=== PATIENT | female | born 1940 | race Caucasian/White ===

== ENCOUNTER 2019-10-23 16:07 | Observation (INO) | payer MEDICARE, OTHER, SELFPAY ==
[2019-10-23 16:07] VITALS: BP 147/91; PULSE 104; RESP 18; O2SAT 94; BMI 33.5
[2019-10-23 16:16] VITALS: TEMP 37.4
--- NOTE | 2019-10-23 16:20 | ED_ITS ---
Entered by Zandra Rock, acting as scribe for Lamar Doan MD HPI - Neuro Symptoms/Deficit General: Chief Complaint: Neuro Symptoms/Deficit Stated Complaint: STROKE LIKE SYMPTOMS Time Seen by Provider: 10/23/19 16:19 Source: patient, EMS, RN notes reviewed and other (friend) Mode of arrival: EMS Limitations: no limitations History of Present Illness: HPI Narrative: 78 yo female presents to ED with complaints of weakness. She said Report from a family friend: the patient had dry heaves and slurred speech yesterday, beginning about 1600. He said she had increased difficulty walking due to increased weakness. He said her symptoms improved slightly last night before he left her home (he left at 2300). He said the patient began feeling the same way today. Patient reports that she has been having UTI symptoms, fever off and on for months. She has been to her PCP, urologist, form worker and another doctor for that. She has been having flank pain for months and begs for me to find out what is causing it because none of the other doctors have tried to figure it out. Onset (ago): day(s) (last night) Time: 16:00 Last Observed Normal: 16:00 Timing confirmed by: other (friend) Location: other (general weakness) History of same: Yes Severity: moderate Quality: weak and constant Relieving factors: none Exacerbating factors: none Context: sudden onset Associated symptoms: Reports fevers/chills, headache(s), short of breath, weakness and other (R arm pain); Deny chest pain, diaphoresis, nausea or vomiting Review of Systems Const: Denies: change in appetite, night sweats or diaphoresis Eyes: Denies: change in vision ENMT: Denies: throat pain or ear pain Card: Denies: chest pain, swelling of feet/ankles, shortness of breath on exertion or shortness of breath when lying down Resp: Denies: shortness of breath GI: Denies: abdominal pain, nausea, vomiting, diarrhea or constipation : Denies: difficulty urinating Musc: Denies: back pain Skin/Breast: Denies: rash Neuro: Reports: headache; Denies: numbness in extremities or weakness in extremities Psych: Denies: depression Endo: Denies: excessive thirst Niall/Lymph: Denies: easy bruising PFSH ED PFSH: Medical History Diabetes mellitus type 2, noninsulin dependent Fibromyalgia Hypertension Hypothyroidism Obstructive sleep apnea CPAP at home Surgical History History of back surgery History of bilateral knee replacement History of cholecystectomy History of right hip replacement History of shoulder surgery bilateral Family History Denies family history of CAD (coronary artery disease) Social History Smoking and tobacco status: never smoked Caregiver/support person: No Household members: none Physical Exam Const: COMMON NORMALS: no apparent distress, oriented x3 and alert GENERAL APPEARANCE: cooperative and well developed; not in distress and not diaphoretic ORIENTATION/CONSCIOUSNESS: Yes awake, Yes oriented to person, Yes oriented to place and Yes oriented to time HENMT: COMMON NORMALS: normocephalic, head/scalp atraumatic, external ears normal, external nose normal and oropharynx normal (MM very dry); oral mucous membranes not moist HEAD & SCALP: normocephalic and atraumatic FACE & SINUS: normal facial exam; no facial tenderness NOSE: external nose normal EXTERNAL EAR: Yes external ears normal MOUTH: oral and palatal mucosa normal TEETH & GINGIVA: no abnormal tooth and associated gingiva THROAT: posterior oropharynx normal and uvula midline Eye: COMMON NORMALS: PERRL and EOMs intact bilaterally PUPIL: Yes PERRL Neck/C-Spine: COMMON NORMALS: full ROM, supple and no JVD GENERAL: Yes normal visual inspection and Yes trachea midline CERVICAL SPINE: No cervical spine tenderness Lymph: LYMPHATIC: no lymphadenopathy noted Chest: COMMONS NORMALS: inspection of chest normal Resp: COMMON NORMALS: normal respiratory effort, no use of accessory muscles and clear to auscultation bilaterally EFFORT & INSPECTION: Yes able to speak in complete sentences and Yes symmetric chest movement AUSCULTATION: clear to auscultation bilaterally Cardio: COMMON NORMALS: no JVD, regular rate, regular rhythm, no gallops, no murmurs and peripheral pulses 2+ throughout RATE: regular rate RHYTHM: regular rhythm PERIPHERAL PULSES: pulses 2+ throughout GI: COMMON NORMALS: normal to inspection, nondistended, normoactive bowel sounds, soft to palpation and non-tender PALPATION: Yes soft : BLADDER/KIDNEY EXAM: Yes CVA tenderness Back/Pelvis: COMMON NORMALS: thoracic and lumbar spine normal to inspection and thoraco-lumbar ROM normal GENERAL BACK: Yes CVA tenderness CVA tenderness: left Extremity: COMMON NORMALS: normal to inspection, full ROM and normal capillary refill Neuro: COMMON NORMALS: oriented x3, CN's II-XII intact bilaterally, moves all extremities, no focal motor deficits and no sensory deficits noted SENSORIUM/ORIENTATION: Yes alert, Yes oriented to person, Yes oriented to place and Yes oriented to time Psych: COMMON NORMALS: mental status grossly normal, thought process normal, cooperative, affect normal, speech normal and activity/motor behavior normal SPEECH: Yes normal speech THOUGHT PROCESS: normal thought process Skin: COMMON NORMALS: no rashes or lesions noted and skin turgor normal GENERAL SKIN EXAM: no rashes or lesions noted and turgor normal Course Vital Signs: Vital signs: Vital Signs Temperature 100.4 F H 10/24/19 09:42 Pulse Rate 75 10/24/19 09:42 Respiratory Rate 17 10/24/19 09:42 Blood Pressure 128/55 10/24/19 09:42 Pulse Oximetry 95 10/24/19 09:42 MDM - Neuro Symptoms/Deficit Lab Data: Labs: Lab Results 10/23/19 10/23/19 10/23/19 Range/Units 13:50 13:50 13:50 WBC 13.4 H (4.0-10.0) 10^3/ uL RBC 5.11 (4.1-5.3) 10^6/u L Hgb 14.8 (11.5-15.3) g/dL Hct 46.1 (37.0-47.0) % MCV 90.2 (81-99) fL MCH 29.0 (28.0-34.0) pg MCHC 32.1 (30.0-36.0) g/dL RDW 13.0 (12.1-15.1) % Plt Count 193 (130-400) 10^3/c mm MPV 10.5 H (7.4-10.4) fL Neut % (Auto) 91.5 % Lymph % (Auto) 3.2 % [place] % (Auto) 4.0 % Eos % (Auto) 0.4 % Baso % (Auto) 0.3 % Neut # (Auto) 12.3 H (1.8-7.7) 10^3/u L Lymph # (Auto) 0.4 L (0.8-4.8) 10^3/u L [place] # (Auto) 0.5 (0.2-0.9) 10^3/u L Eos # (Auto) 0.1 (0.0-0.8) 10^3/u L Baso # (Auto) 0.0 (0.0-0.1) 10^3/u L Nucleated RBC % (a uto) 0 % Nucleated RBCs # 0.0 /100WBC PT 14.30 H (10.5-13.3) SECO NDS INR 1.08 (0.8-1.2) APTT 30.0 (23.9-36.7) SECO NDS Sodium 137 (136-145) mmol/L Potassium 3.9 (3.5-5.1) mmol/L Chloride 100 (98-107) mmol/L Carbon Dioxide 25 (22-29) mmol/L Anion Gap 15.9 (5-19) BUN 14 (8-23) mg/dL Creatinine 0.9 (0.5-0.9) mg/dL Glucose 221 H (65-115) mg/dL POC Glucose (70-110) mg/dL Lactic Acid (0.5-2.2) mmol/L Calcium 10.5 (8.5-10.5) mg/dL Total Bilirubin 0.6 (0.15-1.2) mg/dL AST 77 H (0-32) U/L ALT 105 H (0-33) U/L Alkaline Phosphata se 68 (35-105) IU/L Troponin I 6 Hour (0-10) ng/mL Troponin I Hi Sens Del (0-12) ng/L Troponin T Baselin e (0-10) ng/mL Troponin T 120 Min little traverse (0-10) ng/mL Delta Troponin T (0-10) ABS# Total Protein 8.1 (6.6-8.7) g/dL Albumin 4.7 (3.5-5.2) g/dL Globulin 3.4 (1.3-4.6) g/dL TSH (0.27-4.20) uIU/ mL Free T4 (0.82-1.77) ng/d L Urine Color (Yellow) Urine Appearance (CLEAR) Urine pH (5-7) Ur Specific Gravit y (1.005-1.030) Urine Protein (Negative) Urine Glucose (UA) (Normal) Urine Ketones (Negative) Urine Occult Blood (Negative) Urine Nitrate (Negative) Urine Bilirubin (NEGATIVE) Urine Urobilinogen (Negative) mg/dL Ur Leukocyte Gianna ase (Negative) Urine Opiates Scre en (Negative) ng/mL Acetaminophen (10-30) ug/mL Ur Barbiturates Sc reen (Negative) ng/mL Ur Phencyclidine S crn (Negative) ng/mL Ur Amphetamines Sc reen (Negative) ng/mL U Benzodiazepines Scrn (Negative) ng/mL Urine Cocaine Scre en (Negative) ng/mL U Marijuana (THC) Screen (Negative) ng/mL Ethyl Alcohol < 10 (0-10) mg/dL Influenza Type A A g (Negative) POC Influenza B Ag (Negative) 10/23/19 10/23/19 10/23/19 Range/Units 13:50 16:51 17:46 WBC (4.0-10.0) 10^3/ uL RBC (4.1-5.3) 10^6/u L Hgb (11.5-15.3) g/dL Hct (37.0-47.0) % MCV (81-99) fL MCH (28.0-34.0) pg MCHC (30.0-36.0) g/dL RDW (12.1-15.1) % Plt Count (130-400) 10^3/c mm MPV (7.4-10.4) fL Neut % (Auto) % Lymph % (Auto) % [place] % (Auto) % Eos % (Auto) % Baso % (Auto) % Neut # (Auto) (1.8-7.7) 10^3/u L Lymph # (Auto) (0.8-4.8) 10^3/u L [place] # (Auto) (0.2-0.9) 10^3/u L Eos # (Auto) (0.0-0.8) 10^3/u L Baso # (Auto) (0.0-0.1) 10^3/u L Nucleated RBC % (a uto) % Nucleated RBCs # /100WBC PT (10.5-13.3) SECO NDS INR (0.8-1.2) APTT (23.9-36.7) SECO NDS Sodium (136-145) mmol/L Potassium (3.5-5.1) mmol/L Chloride (98-107) mmol/L Carbon Dioxide (22-29) mmol/L Anion Gap (5-19) BUN (8-23) mg/dL Creatinine (0.5-0.9) mg/dL Glucose (65-115) mg/dL POC Glucose 177 (70-110) mg/dL Lactic Acid (0.5-2.2) mmol/L Calcium (8.5-10.5) mg/dL Total Bilirubin (0.15-1.2) mg/dL AST (0-32) U/L ALT (0-33) U/L Alkaline Phosphata se (35-105) IU/L Troponin I 6 Hour (0-10) ng/mL Troponin I Hi Sens Del (0-12) ng/L Troponin T Baselin e (0-10) ng/mL Troponin T 120 Min little traverse (0-10) ng/mL Delta Troponin T (0-10) ABS# Total Protein (6.6-8.7) g/dL Albumin (3.5-5.2) g/dL Globulin (1.3-4.6) g/dL TSH 1.63 (0.27-4.20) uIU/ mL Free T4 1.25 (0.82-1.77) ng/d L Urine Color Yellow (Yellow) Urine Appearance Clear (CLEAR) Urine pH 5 (5-7) Ur Specific Gravit y 1.020 (1.005-1.030) Urine Protein Neg (Negative) Urine Glucose (UA) Trace H (Normal) Urine Ketones 1+ H (Negative) Urine Occult Blood Neg (Negative) Urine Nitrate Negative (Negative) Urine Bilirubin Neg (NEGATIVE) Urine Urobilinogen Norm (Negative) mg/dL Ur Leukocyte Gianna ase Negative (Negative) Urine Opiates Scre en (Negative) ng/mL Acetaminophen (10-30) ug/mL Ur Barbiturates Sc reen (Negative) ng/mL Ur Phencyclidine S crn (Negative) ng/mL Ur Amphetamines Sc reen (Negative) ng/mL U Benzodiazepines Scrn (Negative) ng/mL Urine Cocaine Scre en (Negative) ng/mL U Marijuana (THC) Screen (Negative) ng/mL Ethyl Alcohol (0-10) mg/dL Influenza Type A A g (Negative) POC Influenza B Ag (Negative) 10/23/19 10/23/19 10/23/19 Range/Units 17:46 20:48 22:48 WBC (4.0-10.0) 10^3/ uL RBC (4.1-5.3) 10^6/u L Hgb (11.5-15.3) g/dL Hct (37.0-47.0) % MCV (81-99) fL MCH (28.0-34.0) pg MCHC (30.0-36.0) g/dL RDW (12.1-15.1) % Plt Count (130-400) 10^3/c mm MPV (7.4-10.4) fL Neut % (Auto) % Lymph % (Auto) % [place] % (Auto) % Eos % (Auto) % Baso % (Auto) % Neut # (Auto) (1.8-7.7) 10^3/u L Lymph # (Auto) (0.8-4.8) 10^3/u L [place] # (Auto) (0.2-0.9) 10^3/u L Eos # (Auto) (0.0-0.8) 10^3/u L Baso # (Auto) (0.0-0.1) 10^3/u L Nucleated RBC % (a uto) % Nucleated RBCs # /100WBC PT (10.5-13.3) SECO NDS INR (0.8-1.2) APTT (23.9-36.7) SECO NDS Sodium (136-145) mmol/L Potassium (3.5-5.1) mmol/L Chloride (98-107) mmol/L Carbon Dioxide (22-29) mmol/L Anion Gap (5-19) BUN (8-23) mg/dL Creatinine (0.5-0.9) mg/dL Glucose (65-115) mg/dL POC Glucose (70-110) mg/dL Lactic Acid (0.5-2.2) mmol/L Calcium (8.5-10.5) mg/dL Total Bilirubin (0.15-1.2) mg/dL AST (0-32) U/L ALT (0-33) U/L Alkaline Phosphata se (35-105) IU/L Troponin I 6 Hour (0-10) ng/mL Troponin I Hi Sens Del (0-12) ng/L Troponin T Baselin e 36 H (0-10) ng/mL Troponin T 120 Min little traverse 38.39 H (0-10) ng/mL Delta Troponin T 2.39 (0-10) ABS# Total Protein (6.6-8.7) g/dL Albumin (3.5-5.2) g/dL Globulin (1.3-4.6) g/dL TSH (0.27-4.20) uIU/ mL Free T4 (0.82-1.77) ng/d L Urine Color (Yellow) Urine Appearance (CLEAR) Urine pH (5-7) Ur Specific Gravit y (1.005-1.030) Urine Protein (Negative) Urine Glucose (UA) (Normal) Urine Ketones (Negative) Urine Occult Blood (Negative) Urine Nitrate (Negative) Urine Bilirubin (NEGATIVE) Urine Urobilinogen (Negative) mg/dL Ur Leukocyte Gianna ase (Negative) Urine Opiates Scre en Negative (Negative) ng/mL Acetaminophen (10-30) ug/mL Ur Barbiturates Sc reen Negative (Negative) ng/mL Ur Phencyclidine S crn Negative (Negative) ng/mL Ur Amphetamines Sc reen Negative (Negative) ng/mL U Benzodiazepines Scrn Negative (Negative) ng/mL Urine Cocaine Scre en Negative (Negative) ng/mL U Marijuana (THC) Screen Negative (Negative) ng/mL Ethyl Alcohol (0-10) mg/dL Influenza Type A A g (Negative) POC Influenza B Ag (Negative) 10/24/19 10/24/19 10/24/19 Range/Units 00:11 03:00 03:00 WBC (4.0-10.0) 10^3/ uL RBC (4.1-5.3) 10^6/u L Hgb (11.5-15.3) g/dL Hct (37.0-47.0) % MCV (81-99) fL MCH (28.0-34.0) pg MCHC (30.0-36.0) g/dL RDW (12.1-15.1) % Plt Count (130-400) 10^3/c mm MPV (7.4-10.4) fL Neut % (Auto) % Lymph % (Auto) % [place] % (Auto) % Eos % (Auto) % Baso % (Auto) % Neut # (Auto) (1.8-7.7) 10^3/u L Lymph # (Auto) (0.8-4.8) 10^3/u L [place] # (Auto) (0.2-0.9) 10^3/u L Eos # (Auto) (0.0-0.8) 10^3/u L Baso # (Auto) (0.0-0.1) 10^3/u L Nucleated RBC % (a uto) % Nucleated RBCs # /100WBC PT (10.5-13.3) SECO NDS INR (0.8-1.2) APTT (23.9-36.7) SECO NDS Sodium (136-145) mmol/L Potassium (3.5-5.1) mmol/L Chloride (98-107) mmol/L Carbon Dioxide (22-29) mmol/L Anion Gap (5-19) BUN (8-23) mg/dL Creatinine (0.5-0.9) mg/dL Glucose (65-115) mg/dL POC Glucose 138 (70-110) mg/dL Lactic Acid (0.5-2.2) mmol/L Calcium (8.5-10.5) mg/dL Total Bilirubin (0.15-1.2) mg/dL AST (0-32) U/L ALT (0-33) U/L Alkaline Phosphata se (35-105) IU/L Troponin I 6 Hour 40.30 H (0-10) ng/mL Troponin I Hi Sens Del 4.30 (0-12) ng/L Troponin T Baselin e (0-10) ng/mL Troponin T 120 Min little traverse (0-10) ng/mL Delta Troponin T (0-10) ABS# Total Protein (6.6-8.7) g/dL Albumin (3.5-5.2) g/dL Globulin (1.3-4.6) g/dL TSH (0.27-4.20) uIU/ mL Free T4 (0.82-1.77) ng/d L Urine Color (Yellow) Urine Appearance (CLEAR) Urine pH (5-7) Ur Specific Gravit y (1.005-1.030) Urine Protein (Negative) Urine Glucose (UA) (Normal) Urine Ketones (Negative) Urine Occult Blood (Negative) Urine Nitrate (Negative) Urine Bilirubin (NEGATIVE) Urine Urobilinogen (Negative) mg/dL Ur Leukocyte Gianna ase (Negative) Urine Opiates Scre en (Negative) ng/mL Acetaminophen < 10.0 L (10-30) ug/mL Ur Barbiturates Sc reen (Negative) ng/mL Ur Phencyclidine S crn (Negative) ng/mL Ur Amphetamines Sc reen (Negative) ng/mL U Benzodiazepines Scrn (Negative) ng/mL Urine Cocaine Scre en (Negative) ng/mL U Marijuana (THC) Screen (Negative) ng/mL Ethyl Alcohol (0-10) mg/dL Influenza Type A A g (Negative) POC Influenza B Ag (Negative) 10/24/19 10/24/19 10/24/19 Range/Units 04:02 04:02 04:04 WBC (4.0-10.0) 10^3/ uL RBC (4.1-5.3) 10^6/u L Hgb (11.5-15.3) g/dL Hct (37.0-47.0) % MCV (81-99) fL MCH (28.0-34.0) pg MCHC (30.0-36.0) g/dL RDW (12.1-15.1) % Plt Count (130-400) 10^3/c mm MPV (7.4-10.4) fL Neut % (Auto) % Lymph % (Auto) % [place] % (Auto) % Eos % (Auto) % Baso % (Auto) % Neut # (Auto) (1.8-7.7) 10^3/u L Lymph # (Auto) (0.8-4.8) 10^3/u L [place] # (Auto) (0.2-0.9) 10^3/u L Eos # (Auto) (0.0-0.8) 10^3/u L Baso # (Auto) (0.0-0.1) 10^3/u L Nucleated RBC % (a uto) % Nucleated RBCs # /100WBC PT (10.5-13.3) SECO NDS INR (0.8-1.2) APTT (23.9-36.7) SECO NDS Sodium (136-145) mmol/L Potassium (3.5-5.1) mmol/L Chloride (98-107) mmol/L Carbon Dioxide (22-29) mmol/L Anion Gap (5-19) BUN (8-23) mg/dL Creatinine (0.5-0.9) mg/dL Glucose (65-115) mg/dL POC Glucose 161 (70-110) mg/dL Lactic Acid (0.5-2.2) mmol/L Calcium (8.5-10.5) mg/dL Total Bilirubin (0.15-1.2) mg/dL AST (0-32) U/L ALT (0-33) U/L Alkaline Phosphata se (35-105) IU/L Troponin I 6 Hour (0-10) ng/mL Troponin I Hi Sens Del (0-12) ng/L Troponin T Baselin e (0-10) ng/mL Troponin T 120 Min little traverse (0-10) ng/mL Delta Troponin T (0-10) ABS# Total Protein (6.6-8.7) g/dL Albumin (3.5-5.2) g/dL Globulin (1.3-4.6) g/dL TSH (0.27-4.20) uIU/ mL Free T4 (0.82-1.77) ng/d L Urine Color (Yellow) Urine Appearance (CLEAR) Urine pH (5-7) Ur Specific Gravit y (1.005-1.030) Urine Protein (Negative) Urine Glucose (UA) (Normal) Urine Ketones (Negative) Urine Occult Blood (Negative) Urine Nitrate (Negative) Urine Bilirubin (NEGATIVE) Urine Urobilinogen (Negative) mg/dL Ur Leukocyte Gianna ase (Negative) Urine Opiates Scre en Negative (Negative) ng/mL Acetaminophen (10-30) ug/mL Ur Barbiturates Sc reen Negative (Negative) ng/mL Ur Phencyclidine S crn Negative (Negative) ng/mL Ur Amphetamines Sc reen Negative (Negative) ng/mL U Benzodiazepines Scrn Negative (Negative) ng/mL Urine Cocaine Scre en Negative (Negative) ng/mL U Marijuana (THC) Screen Negative (Negative) ng/mL Ethyl Alcohol (0-10) mg/dL Influenza Type A A g Negative (Negative) POC Influenza B Ag Negative (Negative) 10/24/19 10/24/19 10/24/19 Range/Units 05:26 05:26 08:00 WBC (4.0-10.0) 10^3/ uL RBC (4.1-5.3) 10^6/u L Hgb (11.5-15.3) g/dL Hct (37.0-47.0) % MCV (81-99) fL MCH (28.0-34.0) pg MCHC (30.0-36.0) g/dL RDW (12.1-15.1) % Plt Count (130-400) 10^3/c mm MPV (7.4-10.4) fL Neut % (Auto) % Lymph % (Auto) % [place] % (Auto) % Eos % (Auto) % Baso % (Auto) % Neut # (Auto) (1.8-7.7) 10^3/u L Lymph # (Auto) (0.8-4.8) 10^3/u L [place] # (Auto) (0.2-0.9) 10^3/u L Eos # (Auto) (0.0-0.8) 10^3/u L Baso # (Auto) (0.0-0.1) 10^3/u L Nucleated RBC % (a uto) % Nucleated RBCs # /100WBC PT (10.5-13.3) SECO NDS INR (0.8-1.2) APTT (23.9-36.7) SECO NDS Sodium 136 (136-145) mmol/L Potassium 4.2 (3.5-5.1) mmol/L Chloride 103 (98-107) mmol/L Carbon Dioxide 24 (22-29) mmol/L Anion Gap 13.2 (5-19) BUN 14 (8-23) mg/dL Creatinine 0.8 (0.5-0.9) mg/dL Glucose 170 H (65-115) mg/dL POC Glucose 120 (70-110) mg/dL Lactic Acid 0.9 (0.5-2.2) mmol/L Calcium 9.3 (8.5-10.5) mg/dL Total Bilirubin 0.6 (0.15-1.2) mg/dL AST 37 H (0-32) U/L ALT 61 H (0-33) U/L Alkaline Phosphata se 51 (35-105) IU/L Troponin I 6 Hour (0-10) ng/mL Troponin I Hi Sens Del (0-12) ng/L Troponin T Baselin e (0-10) ng/mL Troponin T 120 Min little traverse (0-10) ng/mL Delta Troponin T (0-10) ABS# Total Protein 6.5 L (6.6-8.7) g/dL Albumin 3.3 L (3.5-5.2) g/dL Globulin 3.2 (1.3-4.6) g/dL TSH (0.27-4.20) uIU/ mL Free T4 (0.82-1.77) ng/d L Urine Color (Yellow) Urine Appearance (CLEAR) Urine pH (5-7) Ur Specific Gravit y (1.005-1.030) Urine Protein (Negative) Urine Glucose (UA) (Normal) Urine Ketones (Negative) Urine Occult Blood (Negative) Urine Nitrate (Negative) Urine Bilirubin (NEGATIVE) Urine Urobilinogen (Negative) mg/dL Ur Leukocyte Gianna ase (Negative) Urine Opiates Scre en (Negative) ng/mL Acetaminophen (10-30) ug/mL Ur Barbiturates Sc reen (Negative) ng/mL Ur Phencyclidine S crn (Negative) ng/mL Ur Amphetamines Sc reen (Negative) ng/mL U Benzodiazepines Scrn (Negative) ng/mL Urine Cocaine Scre en (Negative) ng/mL U Marijuana (THC) Screen (Negative) ng/mL Ethyl Alcohol (0-10) mg/dL Influenza Type A A g (Negative) POC Influenza B Ag (Negative) Imaging Data^: CT Head: Radiologist's impression: [facility] [address] [place] [address] CT Scan Report Signed Patient: Meghna Crespo #: [id number] : 1Acct#:[id number] Age/Sex: 78 / FADM Date: 10/23/19 Loc: ERRoom/Bed: Attending Dr: Ordering Provider/Ordering MD: Lamar Doan MD Date of Service: 10/23/19 Procedure(s): CT head wo con* [id number] Accession Number(s): [id number] Report Number: [id number] WS: [id number] CT HEAD NONCONTRAST HISTORY: Symptoms of Acute Stroke TECHNIQUE: Contiguous axial imaging performed through the brain in 2.5 mm imaging. Bone and soft tissue windows. Sagittal and coronal reformats reviewed. All CT scans at [facility] use at least one of these dose optimization techniques: automated exposure control; mA and/or kV adjustment per patient size (includes targeted exams where dose is matched to clinical indication); or iterative reconstruction. DLP: 797.60 mGy-cm. COMPARISON: 10/18/2017 No acute intracranial hemorrhage, midline shift or mass effect. No atrophy or prior infarcts or herniation. There is artifact through the brain from motion. There is extensive chronic white matter disease surrounding the ventricles with mild progression since the prior study. Small lacunar infarcts in the external capsules. Ventricles: Normal size with no hydrocephalus. Paranasal sinuses: As visualized are clear. Mastoid air cells: Well pneumatized. Calvarium and scalp: Skull is intact with no soft tissue edema or swelling. Notified Lamar Doan MD at 10/23/2019 4:[address]/CT head wo con* [id number] IMPRESSION: 1. No acute intracranial hemorrhage or edema. 2. Mild atrophy with moderate chronic microvascular ischemic changes. Mild progression since 10/18/2017 Dictated By:Darling Moyer DO Signed By:Darling Moyer DOSigned Date/Time:10/23/19 1635 DD/ CT Abd/Pel: Radiologist's impression: [facility] [address] [place] [address] CT Scan Report Signed Patient: Meghna Crespo #: [id number] : 1Acct#:[id number] Age/Sex: 78 / FADM Date: 10/23/19 Loc: ERRoom/Bed: Attending Dr: Ordering Provider/Ordering MD: Lamar Doan MD Date of Service: 10/23/19 Procedure(s): CT abdomen pelvis w con* [id number] Accession Number(s): [id number] Report Number: [id number] PROCEDURE INFORMATION: Exam: CT Abdomen And Pelvis With Contrast Exam date and time: 10/23/2019 5:48 PM Age: 78 years old Clinical indication: Constipation; Abdominal pain; Prior surgery; Surgery type: L-spine, RT. Hip, hysto, gb; Additional info: Abdominal pain, fever TECHNIQUE: Imaging protocol: Computed tomography of the abdomen and pelvis with intravenous contrast. Total DLP: 2102.14 mGy-cm Radiation optimization: All CT scans at this facility use at least one of these dose optimization techniques: automated exposure control; mA and/or kV adjustment per patient size (includes targeted exams where dose is matched to clinical indication); or iterative reconstruction. Contrast material: OMNI 300; Contrast volume: 95 ml; Contrast route: IV; COMPARISON: CT Chest/Abdomen/Pelvis w IV* 04/02/2019 1:04 AM FINDINGS: Lungs: Mild atelectasis. Liver: Normal. No mass. Gallbladder and bile ducts: Cholecystectomy. Stable prominence of the intrahepatic and extrahepatic bile ducts. Pancreas: Normal. No ductal dilation. Spleen: Normal. No splenomegaly. Adrenals: Normal. No mass. Kidneys and ureters: Normal. No hydronephrosis. Stomach and bowel: Moderate stool in the rectum. Diverticulosis of the sigmoid colon. The stomach and small bowel are unremarkable. Appendix: No evidence of appendicitis. Intraperitoneal space: Unremarkable. No free air. No significant fluid collection. Vasculature: Unremarkable. No abdominal aortic aneurysm. Lymph nodes: Unremarkable. No enlarged lymph nodes. Bladder: Maguire catheter in a decompressed urinary bladder. Reproductive: The uterus is absent. Normal small ovaries. Bones/joints: L2-4 posterior mechanical fusion. Degenerative spine. No compression fracture. Right hip arthroplasty. Soft tissues: Unremarkable. CT/CT abdomen pelvis w con* [id number] IMPRESSION: 1. No acute abnormality identified in the abdomen or pelvis. 2. Moderate stool in the rectum likely indicates rectal impaction. 3. Diverticulosis of the distal colon. 4. Stable prominence of the bile ducts, most likely reservoir effect. Radiation Dose CTDIVOL = (mGy): DLP = 2102.14 (mGy-cm) Dictated By:Frederick Moreira Signed By:Frederick MoreiraSigned Date/Time:10/23/19 183 DD/ EKG Data^: EKG 1: EKG interpretation date: 10/23/19 EKG interpretation time: 16:33 Interpretation: NSR, 99 rate, LAE, non specific ST and T wave abnormalities EKG 2: EKG interpretation date: 10/23/19 EKG interpretation time: 22:19 Interpretation: rate 73, normal ST segments now - some change from previous EKG today, normal axis Discharge Plan Discharge Patient Disposition: Admitted As Inpatient Admit Provider: Domonique Gerardo Discharge Date/Time: 10/24/19 09:55 Coding Level of Care Code ED Rap Artist for Chg Fwd Exam Problem Focused The documentation recorded by the Pranav gutierres Valerie R, accurately reflects the service I personally performed and the decisions made by Olimpia brooks Kathryn L, MD
--- NOTE | 2019-10-23 16:24 | CT_ITS ---
WS: [id number] CT HEAD NONCONTRAST HISTORY: Symptoms of Acute Stroke TECHNIQUE: Contiguous axial imaging performed through the brain in 2.5 mm imaging. Bone and soft tiss ue windows. Sagittal and coronal reformats reviewed. All CT scans at [facility] use at ast one of these dose optimization techniques: automated exposure control; mA and/or kV adjustment pe r patient size (includes targeted exams where dose is matched to clinical indication); or iterative r econstruction. DLP: 797.60 mGy-cm. COMPARISON: 10/18/2017 No acute intracranial hemorrhage, midline shift or mass effect. No atrophy or prior infarcts or herniation. There is artifact through the brain from motion. There is extensive chronic white matter disease surrounding the ventricles with mild progression since the pr ior study. Small lacunar infarcts in the external capsules. Ventricles: Normal size with no hydrocephalus. Paranasal sinuses: As visualized are clear. Mastoid air cells: Well pneumatized. Calvarium and scalp: Skull is intact with no soft tissue edema or swelling. Notified Lamar Doan MD at 10/23/2019 4:[address]/CT head wo con* [id number] IMPRESSION: 1. No acute intracranial hemorrhage or edema. 2. Mild atrophy with moderate chronic microvascular ischemic changes. Mild pro gression since 10/18/2017
--- NOTE | 2019-10-23 16:24 | ECG_ITS ---
Measurements Intervals [place] Rate: 99 P: 67 W[place]: 196 QRS: 60 QRSD: 86 T: 58 QT: 316 QTc: 406 SINUS RHYTHM POSSIBLE LEFT ATRIAL ENLARGEMENT [-0.1mV P WAVE IN V1/V2] NONSPECIFIC ST & T-WAVE ABNORMALITY Compared to ECG 07/05/2019 03:12:18 Sinus tachycardia no longer present T-wave abnormality still present Electronically Signed On 10-23-2019 20:41:54 HEALTH AID by Davian Bowles M.D. [id number] f
[2019-10-23 16:41] LABS: Basophils % 0.3 %; Eosinophils # 0.1 10^3/uL (0.0-0.8); Eosinophils % 0.4 %; Hematocrit 46.1 % (37.0-47.0); Hemoglobin 14.8 g/dL (11.5-15.3); Lymphocytes # 0.4 10^3/uL (0.8-4.8); Lymphocytes % 3.2 %; Mean Corpuscular HGB Conc 32.1 g/dL (30.0-36.0); Mean Corpuscular Volume 90.2 fL (81-99); Mean Platelet Volume 10.5 fL (7.4-10.4); Monocytes # 0.5 10^3/uL (0.2-0.9); Neutrophils # 12.3 10^3/uL (1.8-7.7); Neutrophils % 91.5 %; Nucleated Red Blood Cells % 0 %; Platelet Count 193 10^3/cmm (130-400); Red Blood Count 5.11 10^6/uL (4.1-5.3); White Blood Count 13.4 10^3/uL (4.0-10.0)
[2019-10-23 16:46] LABS: INR 1.08 (0.8-1.2)
[2019-10-23 16:52] LABS: Alanine Aminotransferase 105 U/L (0-33); Albumin Level 4.7 g/dL (3.5-5.2); Alkaline Phosphatase 68 IU/L (35-105); Anion Gap 15.9 (5-19); Aspartate Amino Transferase 77 U/L (0-32); Blood Urea Nitrogen 14 mg/dL (8-23); Calcium 10.5 mg/dL (8.5-10.5); Carbon Dioxide 25 mmol/L (22-29); Chloride 100 mmol/L (98-107); Globulin 3.4 g/dL (1.3-4.6); Glucose 221 mg/dL (65-115); Potassium 3.9 mmol/L (3.5-5.1); Sodium 137 mmol/L (136-145); Total Bilirubin 0.6 mg/dL (0.15-1.2); Total Protein 8.1 g/dL (6.6-8.7)
[2019-10-23 16:55] LABS: Glucose Point of Care 177 mg/dL (70-110)
--- NOTE | 2019-10-23 17:36 | CTR_ITS ---
PROCEDURE INFORMATION: Exam: CT Abdomen And Pelvis With Contrast Exam date and time: 10/23/2019 5:48 PM Age: 78 years old Clinical indication: Constipation; Abdominal pain; Prior surgery; Surgery type: L-spine, RT. Hip, hysto, gb; Additional info: Abdominal pain, fever TECHNIQUE: Imaging protocol: Computed tomography of the abdomen and pelvis with intravenous contrast. Total DLP: 2102.14 mGy-cm Radiation optimization: All CT scans at this facility use at least one of these dose optimization techniques: automated exposure control; mA and/or kV adjustment per patient size (includes targeted exams where dose is matched to clinical indication); or iterative reconstruction. Contrast material: OMNI 300; Contrast volume: 95 ml; Contrast route: IV; COMPARISON: CT Chest/Abdomen/Pelvis w IV* 04/02/2019 1:04 AM FINDINGS: Lungs: Mild atelectasis. Liver: Normal. No mass. Gallbladder and bile ducts: Cholecystectomy. Stable prominence of the intrahepatic and extrahepatic bile ducts. Pancreas: Normal. No ductal dilation. Spleen: Normal. No splenomegaly. Adrenals: Normal. No mass. Kidneys and ureters: Normal. No hydronephrosis. Stomach and bowel: Moderate stool in the rectum. Diverticulosis of the sigmoid colon. The stomach and small bowel are unremarkable. Appendix: No evidence of appendicitis. Intraperitoneal space: Unremarkable. No free air. No significant fluid collection. Vasculature: Unremarkable. No abdominal aortic aneurysm. Lymph nodes: Unremarkable. No enlarged lymph nodes. Bladder: Maguire catheter in a decompressed urinary bladder. Reproductive: The uterus is absent. Normal small ovaries. Bones/joints: L2-4 posterior mechanical fusion. Degenerative spine. No compression fracture. Right hip arthroplasty. Soft tissues: Unremarkable. CT/CT abdomen pelvis w con* [id number] IMPRESSION: 1. No acute abnormality identified in the abdomen or pelvis. 2. Moderate stool in the rectum likely indicates rectal impaction. 3. Diverticulosis of the distal colon. 4. Stable prominence of the bile ducts, most likely reservoir effect. Radiation Dose CTDIVOL = (mGy): DLP = 2102.14 (mGy-cm)
[2019-10-23] MEDS: sodium chloride 0.9% 500 ML 999 ML IV (17:47)
[2019-10-23 17:54] LABS: Add Urine Microscopic? NO
--- NOTE | 2019-10-23 18:00 | PC.NURSE ---
pt to ct by stretcher with tech
[2019-10-23] MEDS: iohexol 300 mg/mL 100 mL Btl 95 ML IV (18:04)
[2019-10-23 18:05] LABS: Bilirubin Urine Neg (NEGATIVE); Blood Urine Neg (Negative); Glucose Urine UA Trace (Normal); Ketones Urine 1+ (Negative); Leukocyte Esterase Urine Negative (Negative); Nitrate Urine Negative (Negative); Protein Urine Neg (Negative); Urine Appearance Clear (CLEAR); Urine Color Yellow (Yellow); Urobilinogen Urine Norm (Negative); pH Urine 5 (5-7)
[2019-10-23 18:24] LABS: Amphetamines Screen Urine Negative (Negative); Barbiturates Screen Urine Negative (Negative); Benzodiazepines Screen Urine Negative (Negative); Cocaine Screen Urine Negative (Negative); Opiate Screen Urine Negative (Negative); PCP Screen Urine Negative (Negative); THC Screen Urine Negative (Negative)
[2019-10-23] MEDS: gabapentin 300 mg Capsule PO (18:52)
[2019-10-23] MEDS: oxyCODONE-APAP 5-325 mg Tablet 1 TAB PO (18:52)
[2019-10-23 18:54] VITALS: BP 141/67; PULSE 98; O2SAT 93
--- NOTE | 2019-10-23 19:26 | PC.NURSE ---
Introduced self to patient and initiated vital signs. Pt is A&O x 4 and agreeable. Pt states that the reason for the ER visit today is due to left side flank pain of 10/10. Pt following commands and states that she is feeling the same bilaterally. Pt moves both hands and feet and feels the same on both sides. Reassured patient of needs and will continue to monitor. Awaiting provider at bedside.
[2019-10-23 19:27] VITALS: BP 146/77; PULSE 90; RESP 18; O2SAT 93
--- NOTE | 2019-10-23 19:31 | PC.NURSE ---
Spoke to Graham at [facility]. Provided him with our fax number to send over forms for mother to sign. Pt assigned to room 231
--- NOTE | 2019-10-23 20:45 | ECG_ITS ---
Measurements Intervals [place] Rate: 81 P: 70 [place]: 189 QRS: 59 QRSD: 87 T: 66 QT: 331 QTc: 386 SINUS RHYTHM Compared to ECG 10/23/2019 16:19:55 T-wave abnormality no longer present Electronically Signed On 10-24-2019 20:45:40 FIELD CROP I FARMWORKER by Davian Bowles M.D. [id number]
[2019-10-23 21:00] VITALS: BP 138/66; PULSE 67; RESP 16; O2SAT 94
[2019-10-23 21:11] LABS: Troponin(5th) Baseline 36 ng/mL (0-10)
[2019-10-23 22:43] VITALS: BP 135/68; PULSE 68; RESP 16; O2SAT 96
--- NOTE | 2019-10-23 22:45 | ECG_ITS ---
Measurements Intervals [place] Rate: 73 P: 76 [place]: 178 QRS: 61 QRSD: 86 T: 73 QT: 340 QTc: 375 SINUS RHYTHM Compared to ECG 10/23/2019 16:19:55 T-wave abnormality no longer present Electronically Signed On 10-24-2019 20:50:00 RAIL CAR OPERATOR by Davian Bowles M.D. [id number]
[2019-10-23 23:12] LABS: Troponin 5 2HR 38.39 ng/mL (0-10); Troponin 5 2HR Delta 2.39 ABS# (0-10)
[2019-10-23 23:18] LABS: Thyroid Stimulating Hormone 1.63 uIU/mL (0.27-4.20)
--- NOTE | 2019-10-23 23:45 | PC.NURSE ---
Son's Telephone Number - [phone]
[2019-10-24] VITALS (10 sets, daily range): BP systolic 115–152; BP diastolic 55–103; PULSE 65–95; RESP 16–23; TEMP 36.8–38; O2SAT 91–98
[2019-10-24 00:14] LABS: Glucose Point of Care 138 mg/dL (70-110)
--- NOTE | 2019-10-24 00:30 | PC.NURSE ---
Pt provided with sandwich and apple sauce.
[2019-10-24 01:43] LABS: Free T4 Free Thyroxine 1.25 ng/dL (0.82-1.77)
[2019-10-24] MEDS: HYDROcodone-acetaminophen 7.5-325 mg Tablet 1 TAB PO (02:09)
--- NOTE | 2019-10-24 02:14 | PC.NURSE ---
moved patient up in bed with help of tech for optimal patient comfort. blankets readjusted.
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
--- NOTE | 2019-10-24 02:45 | ECG_ITS ---
Measurements Intervals [place] Rate: 93 P: 65 [place]: 187 QRS: 61 QRSD: 88 T: 62 QT: 308 QTc: [address] & T-WAVE ABNORMALITY Compared to ECG 10/23/2019 16:19:55 No significant changes Electronically Signed On 10-24-2019 20:50:49 ELECTRIC STOVE INSTALLER by Davian Bowles M.D. [id number]
[2019-10-24 03:54] LABS: Add On to Lab Order(s) Added
--- NOTE | 2019-10-24 03:56 | XR_ITS ---
WS: [id number] LEFT RIBS, MULTIPLE VIEWS WITH PA CHEST HISTORY: severe pain left posterior lateral ribs with palpation COMPARISON: 07/05/2019 Lungs and mediastinum: Hyperinflated lungs with chronic emphysema. No pneumonia. Normal vasculature. Ribs: Severe osteopenia. No definite fractures are identified. There is slight deformity of the anter ior 6 and seventh ribs. Indeterminate for acute fractures. Severe bilateral degenerative changes at the glenohumeral joints. XR/XR ribs LT mn 3V w CXR1V [id number] IMPRESSION: 1. No definite rib fractures. There is very slight deformity of the anterior L EFT sixth and seventh ribs. May be incomplete fractures. 2. Severe emphysema.
[2019-10-24 04:06] LABS: Acetaminophen < 10.0 ug/mL (10-30)
[2019-10-24 04:09] LABS: Glucose Point of Care 161 mg/dL (70-110)
--- NOTE | 2019-10-24 04:10 | PC.NURSE ---
Blood glucose is 161, nurse has been informed
[2019-10-24 04:12] LABS: Alcohol Level < 10 mg/dL (0-10)
[2019-10-24] MEDS: sodium chlor 0.9% + KCl 20 mEq 20 MEQ/1,000 ML BAG 100 MEQ IV ×2 (04:22→14:43)
[2019-10-24 04:42] LABS: Amphetamines Screen Urine Negative (Negative); Barbiturates Screen Urine Negative (Negative); Benzodiazepines Screen Urine Negative (Negative); Cocaine Screen Urine Negative (Negative); Opiate Screen Urine Negative (Negative); PCP Screen Urine Negative (Negative); THC Screen Urine Negative (Negative)
--- NOTE | 2019-10-24 04:47 | PC.NURSE ---
Patient placed in disposable underwear.
[2019-10-24 04:51] LABS: Influenza A by IFA Negative (Negative)
[2019-10-24 04:52] LABS: Influenza B by IFA Negative (Negative)
[2019-10-24] MEDS: enoxaparin 40 mg/0.4 mL Syringe SUBCUT (05:25)
[2019-10-24 05:52] LABS: Alanine Aminotransferase 61 U/L (0-33); Albumin Level 3.3 g/dL (3.5-5.2); Alkaline Phosphatase 51 IU/L (35-105); Anion Gap 13.2 (5-19); Aspartate Amino Transferase 37 U/L (0-32); Blood Urea Nitrogen 14 mg/dL (8-23); Calcium 9.3 mg/dL (8.5-10.5); Carbon Dioxide 24 mmol/L (22-29); Chloride 103 mmol/L (98-107); Globulin 3.2 g/dL (1.3-4.6); Glucose 170 mg/dL (65-115); Potassium 4.2 mmol/L (3.5-5.1); Sodium 136 mmol/L (136-145); Total Bilirubin 0.6 mg/dL (0.15-1.2); Total Protein 6.5 g/dL (6.6-8.7)
[2019-10-24 05:53] LABS: Lactic Sepsis W/Reflex 0.9 mmol/L (0.5-2.2)
[2019-10-24 08:03] LABS: Glucose Point of Care 120 mg/dL (70-110)
[2019-10-24] MEDS: gabapentin 300 mg Capsule PO ×2 (08:22→20:14)
[2019-10-24] MEDS: amlodipine 10 mg Tablet PO (08:23)
[2019-10-24] MEDS: levothyroxine 25 mcg Tablet PO (08:24)
[2019-10-24] MEDS: nitrofurantoin SR (BID) 100 mg Capsule PO ×2 (08:29→17:55)
[2019-10-24] MEDS: docusate sodium 100 mg Capsule PO ×2 (08:29→17:55)
[2019-10-24] MEDS: acetaminophen 325 mg Tablet 650 MG PO (09:51)
[2019-10-24 11:09] LABS: Glucose Point of Care 159 mg/dL (70-110)
[2019-10-24] MEDS: oxyCODONE-APAP 10-325 mg Tablet 1 TAB PO ×2 (12:32→20:14)
[2019-10-24] MEDS: pneumococcal (23 valent) SDV 0.5 mL IM (14:43)
--- NOTE | 2019-10-24 15:57 | PC.CHAP ---
Pastoral Care Encounter/Spiritual Assessment Type of Contact [] Declined wireless architect visit [] Patient/Family/Request visit [] Outpatient visit [] Follow-up visit [] Physician referral [] Code/Alert [x] Routine visit [] Staff referral [] Actively dying [] Patient sleeping [] Family support [] [] Out of room [] Palliative care [] [x] Receiving care in room [] Pre-surgical visit [] Trauma [] Long length of stay [] ICU visit [] Other: Relational/Emotional Strength [x] Patient feels connected with others/family/visitors/staff [x] Distress [] Loneliness/isolation [] Abandonment Spirituality of Patient [x] Person of Bren [] Attends Oriental Orthodox of their Bren [x] Believes in Prayer [] Reads Bible or Adventist materials [] There are Spiritual issues to be addressed Banking Analyst Interventions [x] Prayer [x] Active listening [x] Non-anxious presence [x] Spiritual/emotional support [] Crisis/trauma care [x] Spiritual counseling [] Bereavement support [] Provided bereavement packet [] Provided Bible/devotional materials [] Provided toy/stuffed animal, coloring book to patient or family member [] Provided Communion [] Anointing/[place] [] Salvation [x] Completed spiritual assessment [] Other: Impact on Illness or Injury [] Angry [x] Fearful [x] Anxious [] Often cries [] Exhaustion [x] Unable to work [x] Unable to attend mandaen [] Unable to walk/stand [] Unable to read [x] Unable to drive [] Unable to eat/drink [] Unable to sleep [] Unable to be with family [] Patient intubated [] Other: Summary patient was able to connect with Banking Analyst well. Time spent with patient 2min
[2019-10-24 17:30] LABS: Glucose Point of Care 114 mg/dL (70-110)
--- NOTE | 2019-10-24 17:38 | PM.PN ---
Subjective Subjective: Interval history: Continues to complain of significant pain on the left side. Tenderness to palpation present over the left side scapula and upper spine. LFTs are improving. T-max of 100.4. Influenza negative. UA negative. X-ray ribs without any definite acute fracture. Severe emphysema noted. Severe bilateral degenerative changes at the glenohumeral joints. Medications: Reviewed: Yes Vitals/I&O/Wt Last Vital Signs Temp 98.2 F 10/24/19 15:50 Pulse 76 10/24/19 15:50 Resp 18 10/24/19 15:50 BP 125/74 10/24/19 15:50 Pulse Ox 92 10/24/19 15:50 10/24/19 10/24/19 10/24/19 06:59 14:59 22:59 Intake Total 1100 / 1100 240 / 1340 Balance 1100 / 1100 240 / 1340 Weight last 48 hrs Weight 88.451 kg Physical Exam Narrative: EXAM NARRATIVE: GEN: Awake, alert and oriented, no acute distress CVS: S1S2 N RS: CTA B/L Abd: Soft, nt/nd , bs+ FLIGHT RESERVATIONS MANAGER: no focal neuro deficits Back: Tenderness to palpation over left scapula and upper thoracic spine. Urinary Catheter Management^: Maguire: Cath Placed During This Visit: yes Urethral Indwelling: Yes Reason for Continuing Indwelling Catheter: Decision to DC Catheter Urinary Catheter Date of Insertion: 10/23/19 Urinary Catheter Time of Insertion: 17:50 Data : 10/23/19 13:50 10/24/19 05:26 A&P Assessment and plan (1) Obstructive sleep apnea: Status: Chronic Code(s): G47.33 - Obstructive sleep apnea (adult) (pediatric) (2) Hypothyroidism: Normal TSH in the emergency room, on levothyroxine Status: Acute Qualifiers: Hypothyroidism type: acquired Qualified Code(s): E03.9 - Hypothyroidism, unspecified Code(s): E03.9 - Hypothyroidism, unspecified (3) Elevated transaminase level: Currently unclear significance Status: Acute Code(s): R74.0 - Nonspecific elevation of levels of transaminase and lactic acid dehydrogenase [LDH] (4) UTI (urinary tract infection): Present on admission and already on antibiotics Status: Acute Qualifiers: Urinary tract infection type: site unspecified Hematuria presence: without hematuria Qualified Code(s): N39.0 - Urinary tract infection, site not specified Code(s): N39.0 - Urinary tract infection, site not specified (5) Unable to walk: Status: Acute Code(s): R26.2 - Difficulty in walking, not elsewhere classified (6) Hypertension: Status: Chronic Qualifiers: Hypertension type: essential hypertension Qualified Code(s): I10 - Essential (primary) hypertension Code(s): I10 - Essential (primary) hypertension (7) Fibromyalgia: Status: Chronic Code(s): M79.7 - Fibromyalgia (8) Lives alone without help available: Status: Chronic Code(s): Z60.2 - Problems related to living alone (9) Diabetes mellitus type 2, noninsulin dependent: Does not appear to be on any medications for this currently though she does admit to having diabetes. I did see a prescription for insulin syringes so maybe she is on insulin. Sugars are elevated. Status: Chronic Code(s): E11.9 - Type 2 diabetes mellitus without complications Additional A&P Information Patient's chief complaint at this time appears to be pain in her left side which is also radiating down her arm. She reports severe pain in the left shoulder joint as well consistent with known degenerative changes. She wonders if this is all related to her fibromyalgia. She tells me she has never tried any steroids before for the fibromyalgia. She reports that she has a history of hardware placement in the back and I wonder if loosening of hardware? An underlying hardware infection may be complicating in this case. I am concerned about possible infection based on her low-grade fever and white count. Will obtain blood cultures and ESR CRP dedicated imaging for the spine to rule out this possibility. In the interim we will increase her dose of gabapentin to match her home dose of 900 mg daily. Urine culture remains pending at this time. UA is unremarkable likely secondary to antibiotics that she received recently. 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 She states she has never seen rheumatology in the past. Further orders based on results of CT and lab work as noted above. DVT prophylaxis Lovenox Full code Attestations Medical Necessity Statement*: Admitted for management and work-up of pain because of which patient refused to get out of bed at this time. Coding Level of Care Code Acute Pediatric Social Worker for [facility] Diagnoses Obstructive sleep apnea G47.33 Hypothyroidism E03.9 Hypothyroidism type: acquired Elevated transaminase level R74.0 UTI (urinary tract infection) N39.0 Urinary tract infection type: site unspecified Hematuria presence: without hematuria Unable to walk R26.2 Hypertension I10 Hypertension type: essential hypertension Fibromyalgia M79.7 Lives alone without help available Z60.2 Diabetes mellitus type 2, noninsulin dependent E11.9
--- NOTE | 2019-10-24 17:46 | CTR_ITS ---
PROCEDURE INFORMATION: Exam: CT Lumbar Spine Without Contrast Exam date and time: 10/24/2019 5:49 PM Age: 78 years old Clinical indication: Low back pain; Prior surgery; Surgery date: 6+ months; Additional info: Back pain, fever TECHNIQUE: Imaging protocol: Computed tomography images of the lumbar spine without contrast. Total DLP: 2635.9 mGy-cm Radiation optimization: All CT scans at this facility use at least one of these dose optimization techniques: automated exposure control; mA and/or kV adjustment per patient size (includes targeted exams where dose is matched to clinical indication); or iterative reconstruction. COMPARISON: CT Lumbar Spine w contra [id number] 11/26/2018 10:47 AM FINDINGS: Vertebrae: The vertebral body stature is normal. 5 mm retrograde subluxation of L1 on L2. Severe disc space narrowing from T11-12 through L5-S1 with mild degenerative endplate changes. Multilevel degenerative facets. Bilateral pedicle screws with posterior stabilization rods spanning L2-L4. The hardware appears intact. Discs/Spinal canal/Neural foramina: T11-12: Mild disc bulge. Degenerative facets. Severe bilateral foraminal stenosis. Moderate central canal stenosis. T12-L1: Mild disc bulge. Degenerative facets. Severe left and moderate right foraminal stenosis. Mild central canal stenosis. L1-L2: Mild disc bulge. Degenerative facets. Severe bilateral bony foraminal stenosis. Severe central canal stenosis. L2-L3: Discectomy with fusion. No foraminal stenosis. Mild central canal stenosis. L3-L4: Discectomy with fusion. Mild left bony foraminal stenosis. No right foraminal stenosis. Mild central canal stenosis. L4-L5: Disc bulge. Degenerative facets. Moderate bilateral foraminal stenosis. Moderate-severe central canal stenosis. L5-S1: Disc bulge. Degenerative facets. Moderate left and mild right foraminal stenosis. No central canal stenosis. Lungs: Basilar atelectasis. Stomach and bowel: Diverticulosis of the distal colon. Soft tissues: Unremarkable. CT/CT lumbar spine wo con* [id number] IMPRESSION: 1. No acute abnormality identified. 2. Intact L2-4 fusion. 3. Multilevel spondylitic, discogenic, and facet degenerative changes. This contributes to multilevel central canal and foraminal stenosis as described. Radiation Dose CTDIVOL = (mGy): DLP = 2635.9 (mGy-cm)
--- NOTE | 2019-10-24 17:46 | CTR_ITS ---
PROCEDURE INFORMATION: Exam: CT Thoracic Spine Without Contrast Exam date and time: 10/24/2019 5:49 PM Age: 78 years old Clinical indication: Pain in thoracic spine; Additional info: Back pain, fever TECHNIQUE: Imaging protocol: Computed tomography images of the thoracic spine without contrast. Total DLP: 2285 mGy-cm Radiation optimization: All CT scans at this facility use at least one of these dose optimization techniques: automated exposure control; mA and/or kV adjustment per patient size (includes targeted exams where dose is matched to clinical indication); or iterative reconstruction. COMPARISON: [place]acic [place]* [id number] 10/18/2017 5:47 PM FINDINGS: Vertebrae: 21 degrees leftward curvature of the upper thoracic spine. The vertebral body stature is intact. No compression fracture. Discs/Spinal canal/Neural foramina: Disc space narrowing and degenerative endplate changes at all thoracic levels. The facets are intact with degenerative changes. Multilevel bony foraminal stenosis. No significant central canal stenosis identified. Soft tissues: Unremarkable. CT/CT thoracic spin wo con* [id number] IMPRESSION: 1. Stable findings. No acute abnormality or compression fracture. 2. Scoliosis and multilevel degenerative changes. Radiation Dose CTDIVOL = (mGy): DLP = 2285 (mGy-cm)
[2019-10-24 21:01] LABS: Glucose Point of Care 160 mg/dL (70-110)
[2019-10-24 22:35] LABS: Hepatitis A Antibody IgM. Non-Reactive (Nonreactive); Hepatitis B Surface AB. 3.5 (0-8.5); Hepatitis B Surface Antigen. Non-Reactive (Nonreactive); Hepatitis C Virus Antibody Non-Reactive (Nonreactive)
[2019-10-24] MEDS: sennosides 8.6 mg Tablet 17.2 MG PO (23:07)
[2019-10-25] VITALS (7 sets, daily range): BP systolic 125–149; BP diastolic 76–85; PULSE 66–74; RESP 16–18; TEMP 36.7–37.2; O2SAT 91–95
[2019-10-25] MEDS: acetaminophen 325 mg Tablet 650 MG PO (02:06)
[2019-10-25] MEDS: enoxaparin 40 mg/0.4 mL Syringe SUBCUT (05:47)
[2019-10-25 06:45] LABS: Glucose Point of Care 131 mg/dL (70-110)
[2019-10-25 07:06] LABS: Basophils % 0.5 %; Eosinophils # 0.3 10^3/uL (0.0-0.8); Eosinophils % 5.4 %; Hematocrit 39.7 % (37.0-47.0); Hemoglobin 13.3 g/dL (11.5-15.3); Lymphocytes # 0.9 10^3/uL (0.8-4.8); Lymphocytes % 14.6 %; Mean Corpuscular HGB Conc 33.5 g/dL (30.0-36.0); Mean Corpuscular Hemoglobin 30.2 pg (28.0-34.0); Mean Corpuscular Volume 90.2 fL (81-99); Mean Platelet Volume 9.6 fL (7.4-10.4); Monocytes # 0.5 10^3/uL (0.2-0.9); Monocytes % 8.1 %; Neutrophils # 4.4 10^3/uL (1.8-7.7); Neutrophils % 71.1 %; Nucleated Red Blood Cells % 0 %; Platelet Count 172 10^3/cmm (130-400); Red Cell Distribution Width 12.8 % (12.1-15.1); White Blood Count 6.2 10^3/uL (4.0-10.0)
[2019-10-25 07:16] LABS: Glucose Point of Care 129 mg/dL (70-110)
[2019-10-25 07:16] LABS: Alanine Aminotransferase 46 U/L (0-33); Albumin Level 3.8 g/dL (3.5-5.2); Alkaline Phosphatase 49 IU/L (35-105); Anion Gap 14.9 (5-19); Aspartate Amino Transferase 29 U/L (0-32); Blood Urea Nitrogen 14 mg/dL (8-23); Calcium 9.6 mg/dL (8.5-10.5); Carbon Dioxide 23 mmol/L (22-29); Chloride 102 mmol/L (98-107); Globulin 2.8 g/dL (1.3-4.6); Glucose 142 mg/dL (65-115); Potassium 3.9 mmol/L (3.5-5.1); Sodium 136 mmol/L (136-145); Total Bilirubin 0.5 mg/dL (0.15-1.2); Total Protein 6.6 g/dL (6.6-8.7)
[2019-10-25] MEDS: gabapentin 300 mg Capsule PO ×2 (08:05→14:05)
[2019-10-25] MEDS: docusate sodium 100 mg Capsule PO (08:05)
[2019-10-25] MEDS: nitrofurantoin SR (BID) 100 mg Capsule PO (08:05)
[2019-10-25] MEDS: levothyroxine 25 mcg Tablet PO (08:06)
[2019-10-25] MEDS: oxyCODONE-APAP 10-325 mg Tablet 1 TAB PO ×2 (08:06→14:04)
[2019-10-25] MEDS: amlodipine 10 mg Tablet PO (08:07)
[2019-10-25] MEDS: sodium chlor 0.9% + KCl 20 mEq 20 MEQ/1,000 ML BAG 100 MEQ IV (08:07)
[2019-10-25 08:43] LABS: Erythrocyte Sedimentation Rate 12 mm/hr (0-15)
[2019-10-25 10:16] LABS: Glucose Point of Care 184 mg/dL (70-110)
--- NOTE | 2019-10-25 14:29 | PC.CHAP ---
Pastoral Care Encounter/Spiritual Assessment Type of Contact [] Declined lab technician visit [] Patient/Family/Request visit [] Outpatient visit [] Follow-up visit [] Physician referral [] Code/Alert [x] Routine visit [] Staff referral [] Actively dying [] Patient sleeping [x] Family support [] [] Out of room [] Palliative care [] [] Receiving care in room [] Pre-surgical visit [] Trauma [] Long length of stay [] ICU visit [] Other: Relational/Emotional Strength [x] Patient feels connected with others/family/visitors/staff [x] Distress [] Loneliness/isolation [] Abandonment Spirituality of Patient [x] Person of Bren [] Attends Yazidism of their Bren [x] Believes in Prayer [x] Reads Bible or Buddhism materials [x] There are Spiritual issues to be addressed Ring Conductor Interventions [x] Prayer [x] Active listening [x] Non-anxious presence [x] Spiritual/emotional support [] Crisis/trauma care [x] Spiritual counseling [] Bereavement support [] Provided bereavement packet [] Provided Bible/devotional materials [x] Provided toy/stuffed animal, coloring book to patient or family member [] Provided Communion [x] Anointing/Catharpin [] Salvation [x] Completed spiritual assessment [] Other: Impact on Illness or Injury [] Angry [] Fearful [x] Anxious [] Often cries [] Exhaustion [] Unable to work [x] Unable to attend cheondoism [x] Unable to walk/stand [] Unable to read [x] Unable to drive [] Unable to eat/drink [x] Unable to sleep [] Unable to be with family [] Patient intubated [] Other: Summary Spent half an hour with patient. We used to go to [facility] together and now because of severe pain she cannot go anymore. She can not drive and can not walk with out the aide of walker and because of her pain she is unable to hold arms any higher then waist , that make reading difficult. She cries quite a bit because of her situation, She can not sleep in bed very long, has to sit in a chair. Time spent with patient 35 min
--- NOTE | 2019-10-26 15:03 | P.DS_ITS ---
Discharge Providers Date of Admission: 10/24/19 08:56 Date of Discharge: October 26, 2019 Attending Provider at Admission: Domonique Gerardo MD Attending Provider at Discharge: Cee Villegas MD Primary Care Provider: Mar Cortez MD Diagnoses at Discharge Discharge Diagnosis (1) Obstructive sleep apnea: Status: Chronic Problem details: CPAP at home (2) Hypothyroidism: Status: Acute Qualifiers: Hypothyroidism type: acquired Qualified Code(s): E03.9 - Hypothyroidism, unspecified (3) Elevated transaminase level: Status: Acute (4) UTI (urinary tract infection): Status: Acute Qualifiers: Urinary tract infection type: site unspecified Hematuria presence: without hematuria Qualified Code(s): N39.0 - Urinary tract infection, site not specified (5) Unable to walk: Status: Acute (6) Hypertension: Status: Chronic Qualifiers: Hypertension type: essential hypertension Qualified Code(s): I10 - Essential (primary) hypertension (7) Fibromyalgia: Status: Chronic (8) Lives alone without help available: Status: Resolved (9) Diabetes mellitus type 2, noninsulin dependent: Status: Chronic Reason for Visit Reason for Visit: Reason For Visit: WEAKNESS Hospital Course Discharge Summary: Meghna Crespo is a 78 year old female who presented to the emergency room with chief complaint of chronic pain in her side. Work-up in the emergency room was unrevealing except for slightly elevated white count at 13,000 and slightly elevated transaminases at 77 and 105, which corrected over the next 24 hrs with hydration. INR was normal at 1.08. She had a CT of her head without contrast as well as a CT of her abdomen and pelvis with contrast neither of which showed any obvious acute abnormalities. Twelve-lead EKG showed some nonspecific ST segment changes and initial troponin was normal. CT thoracic and lumbar spine was additionally performed due to presence of old hardware to r/o infection vs loosening of hardware and was negative for these. She has a h/o fibromyalgia. CRP was elevated. She was evaluted by PT.Mobiloty was at baseline. She was encouraged to adhere to her home exercise program. she is being discharged with referral to rheumatology to assess if fibromyalgia may be the cause of persisting pain. Physical Exam Narrative: EXAM NARRATIVE: GEN: Awake, alert and oriented, no acute distress CVS: S1S2 N RS: CTA B/L Abd: Soft, nt/nd , bs+ E BUSINESS SPECIALIST: no focal neuro deficits Urinary Catheter Management^: Maguire: Cath Placed During This Visit: yes Urethral Indwelling: Yes Reason for Continuing Indwelling Catheter: Decision to DC Catheter Urinary Catheter Date of Insertion: 10/23/19 Urinary Catheter Time of Insertion: 17:50 Discharge Data Data Completed and Pending: Completed Studies During Hospitalization Category Date Time Status CT abdomen pelvis w con* [id number] Urge nt Cat Scan 10/23/19 17:[address] head wo con* [id number] Stat Cat Scan 10/23/19 16:[address] lumbar spine w o con* [id number] Routi ne Cat Scan 10/24/19 17:[address] thoracic spin wo con* [id number] Rout ine Cat Scan 10/24/19 17:46 Completed XR ribs LT mn 3V w CXR1V [id number] Rout ine Exams 10/24/19 03:56 Completed Pending at discharge Category Date Time Status Blood Culture AM LABS Lab 10/25/19 06:27 Results Vitals: Last Vital Signs Temp 98.1 F 10/25/19 14:39 Pulse 66 10/25/19 14:39 Resp 18 10/25/19 14:39 BP 125/79 10/25/19 14:39 Pulse Ox 95 10/25/19 14:39 Discharge Plan Discharge Patient Disposition: Home, Self-Care Condition: Stable Prescriptions: Continued levothyroxine 25 mcg tablet 25 mcg PO DAILY RF: 0 oxycodone-acetaminophen 10-325 mg tablet 1 tab PO TID RF: 0 amlodipine 10 mg tablet 10 mg PO DAILY RF: 0 gabapentin 300 mg capsule 300 mg PO TID RF: 0 nitrofurantoin monohyd/m-cryst 100 mg capsule 100 mg PO BID RF: 0 Discharge Orders: Discharge Order (Routine); Ordered 10/25/19 Ordered By: Cee Villegas Referrals: Erwin Agrawal MD [Physician] - 7-10 days (Call on Sunday and make an appointment to be seen within the next 7 to 10 days. Fibromyalgia, osteoarthritis, worsening pain not controlled with opiates and NSAIDs. ?role for steroids? ) Discharge Diet: Usual diet Discharge Activity: Resume usual activity Patient Instructions: Weakness (GEN) Discharge Date/Time: 10/25/19 14:40 Discharge Attestations Time Spent in Discharge Care*: less than 30 min Quality Metrics Clinical Quality Measures During this hospital stay, did patient experience: None Coding Level of Care Code Acute Acute Care Nursing Assistant for Chg Fwd Diagnoses Obstructive sleep apnea G47.33 Hypothyroidism E03.9 Hypothyroidism type: acquired Elevated transaminase level R74.0 UTI (urinary tract infection) N39.0 Urinary tract infection type: site unspecified Hematuria presence: without hematuria Unable to walk R26.2 Hypertension I10 Hypertension type: essential hypertension Fibromyalgia M79.7 Lives alone without help available Z60.2 Diabetes mellitus type 2, noninsulin dependent E11.9
== END 2019-10-25 14:40 | disposition home or self-care (01) ==
LOC: ER 16:37 → MEDSURG 10-24 08:56
PROVIDERS: Admitting Provider Hospitalist; Emergency Provider Emergency Medicine; Family Provider Family Medicine; PCP Family Medicine; Visit Provider Student in an Organized Health Care Education/Training Program
DX: R26.2 Difficulty in walking, not elsewhere classified (principal); N39.0 Urinary tract infection, site not specified; R74.0 Nonspecific elevation of levels of transaminase and lactic acid dehydrogenase [LDH]; E11.9 Type 2 diabetes mellitus without complications; M79.7 Fibromyalgia; E03.9 Hypothyroidism, unspecified; G47.33 Obstructive sleep apnea (adult) (pediatric); Z23 Encounter for immunization
CPT/HCPCS: 12345; 36415; 36416; 51702; 70450; 71101; 72128; 72131; 74177; 80053; 80307; 81003; 82962; 83605; 84439; 84443; 84484; 85025; 85610; 85651; 85730; 86140; 86705; 86706; 86709; 86803; 87040; 87340; 87804; 90471; 90732; 93005; 96365; 96366; 96372; 97161; 97167; 97530; 97535; 99285; G0378; J1650; J1815; J7040; Q9967

== ENCOUNTER 2019-10-30 22:16 | Emergency (ER) | payer MEDICARE, OTHER, SELFPAY ==
[2019-10-30 22:21] VITALS: BP 136/74; PULSE 77; RESP 16; TEMP 36.6; O2SAT 93; BMI 33.5
--- NOTE | 2019-10-30 22:23 | ED_ITS ---
Entered by Carola Berkowitz, acting as scribe for Maryam Velazco HPI - Back Pain/Injury General: Chief Complaint: Back Pain/Injury Stated Complaint: back pain post fall Time Seen by Provider: 10/30/19 22:25 Source: patient Mode of arrival: EMS Limitations: no limitations History of Present Illness: HPI Narrative: 78 yo f came to the er by [facility] for back pain. Pt states that she was trying to get out of bed and has trouble, arms are weak and legs do not work that well per pt. Pt states that she slipped and fell backwards and landed on cinder blocks. Pt states that her pain is in her back. Pt states that she has had a uti as well. 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) Timing: constant Similar Symptoms Previously: No Location: right lower back, right upper back, left upper back and left lower back Radiation: none Exacerbating factors: none Relieving factors: other Associated symptoms: Reports no associated symptoms; Deny abdominal pain, chills, difficulty walking, dysuria, fatigue, fever(s), hematuria, nausea, syncope, urinary urgency or vomiting Review of Systems General: Reports: other (negative unless marked) Const: Denies: fever, chills, body aches, fatigue, malaise or diaphoresis Eyes: Denies: change in vision or blurry vision ENMT: Denies: throat pain, painful swallowing, hoarseness, ear pain, ear discharge, Change in hearing or nasal discharge Card: Denies: chest pain, palpitations, irregular heart rhythm, syncope, pre- syncope, shortness of breath on exertion or shortness of breath when lying down Resp: Denies: shortness of breath, productive cough, non-productive cough, wheezing, coughing up blood or chest congestion GI: Denies: abdominal pain, nausea, vomiting, vomiting blood, coffee grounds in vomit, diarrhea, constipation, cramping, blood in stool or black tarry stool : Denies: flank pain, painful urination, urinary frequency, urinary urgency, decreased urine ouput, urinary incontinence or blood in urine Musc: Reports: back pain; Denies: neck pain, extremity pain, extremity swelling, joint pain, joint swelling, joint warmth or joint stiffness Skin/Breast: Denies: rash, skin tenderness or yellow skin Neuro: Denies: headache, numbness in extremities, weakness in extremities, changes in sensation, lack of coordination, difficulty walking, dizziness, vertigo or confusion Endo: Denies: excessive thirst, tired all the time, cold intolerance, excessive sweating, flushing or hot flashes Niall/Lymph: Denies: easy bruising, easy bleeding, petechiae or enlarged lymph nodes All/Imm: Denies: hives, throat swelling, tongue swelling, facial swelling or acute wheezing PFSH ED PFSH: Medical History Diabetes mellitus type 2, noninsulin dependent Fibromyalgia Hypertension Hypothyroidism Obstructive sleep apnea CPAP at home Surgical History History of back surgery History of bilateral knee replacement History of cholecystectomy History of right hip replacement History of shoulder surgery bilateral Family History Denies family history of CAD (coronary artery disease) Social History Smoking and tobacco status: never smoked Caregiver/support person: No Household members: none Physical Exam Const: COMMON NORMALS: no apparent distress, oriented x3, no limitations, healthy appearing and well nourished EXAM LIMITATIONS: no altered mental status GENERAL APPEARANCE: cooperative, well kempt and well developed ORIENTATION/CONSCIOUSNESS: Yes awake HENMT: COMMON NORMALS: normocephalic, head/scalp atraumatic, hearing grossly normal bilaterally, external ears normal, EAC's normal, external nose normal and moist oral mucous membranes HEAD & SCALP: normal to inspection, normocephalic and atraumatic FACE & SINUS: normal facial exam and face symmetric NOSE: external nose normal and nares normal EXTERNAL EAR: Yes external ears normal EXTERNAL AUDITORY CANAL: EAC's normal MOUTH: oral and palatal mucosa normal and tongue normal Eye: COMMON NORMALS: PERRL, EOMs intact bilaterally, conjunctivae normal and no scleral icterus GENERAL EYE: normal appearance of both eyes and normal light reflex CONJUNCTIVA: Yes conjunctivae normal SCLERA: sclerae normal CORNEA: Yes corneas normal PUPIL: Yes PERRL DIRECT OPHTHALMOSCOPY: Yes normal light reflex Neck/C-Spine: COMMON NORMALS: full ROM, no lymphadenopathy, supple, no meningeal signs and no JVD GENERAL: Yes normal visual inspection and Yes t rachea midline CERVICAL SPINE: Yes cervical ROM normal Chest: COMMONS NORMALS: inspection of chest normal and palpation of chest normal Resp: COMMON NORMALS: normal respiratory effort, no retractions, no use of accessory muscles and clear to auscultation bilaterally EFFORT & INSPECTION: Yes able to speak in complete sentences AUSCULTATION: clear to auscultation bilaterally Cardio: COMMON NORMALS: no JVD, regular rate, regular rhythm, S1 normal heart sound, S2 normal heart sound, no gallops, no clicks, no murmurs and no rub JUGULAR VENOUS DISTENTION: no JVD RATE: regular rate RHYTHM: regular rhythm HEART SOUNDS: S1 normal and S2 normal GI: COMMON NORMALS: soft to palpation, non-tender, no hepatosplenomegaly and no masses INSPECTION: Yes normal to inspection PALPATION: Yes soft and Yes no hepatosplenomegaly : COMMON NORMALS: Yes no CVA tenderness BLADDER/KIDNEY EXAM: Yes no CVA t enderness Back/Pelvis: COMMON NORMALS: no CVA tenderness, thoracic and lumbar spine normal to inspection, no thoracic nor lumbar tenderness and thoraco-lumbar ROM normal Extremity: COMMON NORMALS: normal to inspection, full ROM, normal capillary refill, no joint enlargement, no clubbing, cyanosis or edema and no calf tenderness Neuro: COMMON NORMALS: oriented x3, CN's II-XII intact bilaterally, moves all extremities, no focal motor deficits and no sensory deficits noted MENINGEAL SIGNS: Yes no meningeal signs Psych: COMMON NORMALS: mental status grossly normal, thought process normal, cooperative, affect normal, speech normal and activity/motor behavior normal APPEARANCE: Yes well kempt SPEECH: Yes normal speech THOUGHT PROCESS: normal thought process Skin: COMMON NORMALS: no rashes or lesions noted, skin turgor normal, no jaundice, no petechiae and no mottling GENERAL SKIN EXAM: no rashes or lesions noted and turgor normal Course Vital Signs: Vital signs: Vital Signs Temperature 97.8 F 10/30/19 22:21 Pulse Rate 78 10/31/19 01:07 Respiratory Rate 18 10/31/19 01:07 Blood Pressure 120/82 10/31/19 01:07 Pulse Oximetry 93 10/31/19 01:07 MDM - Back Pain/Injury MDM Narrative: Medical decision making narrative: Mrs. Crespo is a nice 78-year-old female who comes in complaining of pain in her back after falling and hitting it. She denies any injuries to her head or being on blood thinners. Patient states that she does has mildly increased pain in her back. CT scans are negative. She wants to go home. She declines any further evaluation or care here. Her son is here with her agrees to take her home and care for her there. She understands if her symptoms worsen or change she is welcome to return for recheck. Imaging Data^: Other CT: Radiologist's impression: [address] [place] [address] CT Scan Report Signed Patient: Meghna Crespo Unit #: [id number] : 1940 Age/Sex: 78 / F ADM Date: 10/30/19 Loc: ER Room/Bed: Attending Dr: Ordering Provider/Ordering MD: Maryam Velazco DO Date of Service: 10/30/19 Procedure(s): CT thoracic spin wo con* [id number] Accession Number(s): [id number] Report Number: [id number] PROCEDURE INFORMATION: Exam: CT Thoracic Spine Without Contrast Exam date and time: 10/30/2019 10:29 PM Age: 78 years old Clinical indication: Injury or trauma; Fall; Initial encounter; Blunt trauma (contusions or hematomas); Additional info: Pain/injury/fall TECHNIQUE: Imaging protocol: Computed tomography images of the thoracic spine without contrast. Total DLP: 2046.09 mGy-cm Radiation optimization: All CT scans at this facility use at least one of these dose optimization techniques: automated exposure control; mA and/or kV adjustment per patient size (includes targeted exams where dose is matched to clinical indication); or iterative reconstruction. COMPARISON: CT thoracic spin wo con* [id number] 10/24/2019 9:37 PM FINDINGS: Vertebrae: There is no fracture. Vertebral bodies maintain their height. There is a mild dextroscoliosis. Alignment is otherwise normal. There is no focal osseous lesion. There are endplate osteophytes throughout the thoracic spine. There is disc space narrowing throughout the thoracic spine. Discs/Spinal canal/Neural foramina: There is spondylosis and disc space narrowing in the lower cervical spine from C5-C6 to C7-T1. There are posterior osteophytes and disc bulges resulting in mild central stenosis at C5-C6 and C6-C7. T1-T2: Severe bilateral foraminal stenosis. Small right paracentral posterior osteophyte. No central stenosis. Mild disc bulges and osteophytes from T6-T7 to T10-T11 without spinal stenosis. T11-T12: Posterior osteophyte and disc bulge with mild central stenosis. There is moderate to severe right and more severe left foraminal stenosis. T12-L1: Mild disc bulge. Mild central stenosis. Moderate right and more severe left foraminal stenosis.. Soft tissues: Unremarkable. Heart: Coronary artery calcifications are noted. CT/CT thoracic spin wo con* [id number] IMPRESSION: 1. No fracture or acute findings. 2. Degenerative findings are detailed above. No significant change from recent comparison scan. Radiation Dose CTDIVOL = (mGy): DLP = 2046.09 (mGy-cm) Dictated By: Kenneth Tomlinson MD Signed By: Kenneth Tomlinson MD Signed Date/Time: 10/31/1911 DD/ 0010 Other Imaging: Radiologist's impression: [place] [address] CT Scan Report Signed Patient: Meghna Crespo Unit #: [id number] : 1940 Age/Sex: 78 / F ADM Date: 10/30/19 Loc: ER Room/Bed: Attending Dr: Ordering Provider/Ordering MD: Maryam Velazco DO Date of Service: 10/30/19 Procedure(s): CT lumbar spine wo con* [id number] Accession Number(s): [id number] Report Number: [id number] PROCEDURE INFORMATION: Exam: CT Lumbar Spine Without Contrast Exam date and time: 10/30/2019 10:29 PM Age: 78 years old Clinical indication: Injury or trauma; Fall; Initial encounter; Blunt trauma (contusions or hematomas); Prior surgery; Surgery date: 6+ months; Additional info: Pain/injury/fall TECHNIQUE: Imaging protocol: Computed tomography images of the lumbar spine without contrast. Total DLP: 2385.83 mGy-cm Radiation optimization: All CT scans at this facility use at least one of these dose optimization techniques: automated exposure control; mA and/or kV adjustment per patient size (includes targeted exams where dose is matched to clinical indication); or iterative reconstruction. COMPARISON: CT lumbar spine wo con* [id number] 10/24/2019 9:40 PM FINDINGS: Vertebrae: There is no vertebral fracture. Vertebral bodies maintain their height. No fracture of the posterior elements. There is no focal osseous lesion. T11-T12: Advanced spondylosis and disc space narrowing with posterior osteophyte and disc bulge. Mild central stenosis. Moderate to severe right and more severe left foraminal stenosis. T12-L1: Advanced disc space narrowing with vacuum degeneration of the disc. Endplate osteophytes. Mild disc bulge. Facet arthropathy with moderate right and more severe left foraminal stenosis. Mild central stenosis. L1-L2: Spondylosis and advanced disc space narrowing. Vacuum degeneration of the disc. Posterior osteophyte and disc bulge. Mild retrolisthesis. Facet and ligament hypertrophy. Severe central and foraminal stenosis. L2-L3: Anterior and posterior fusion.Posteriorly spinal rods and transpedicular screws. Anteriorly disc spacer. Intact osseous fusion anteriorly and posteriorly. Mild central stenosis. No foraminal stenosis. L3-L4: Anterior and posterior fusion. Intact fusion anteriorly and posteriorly. Posteriorly spinal rods and transpedicular screws. Anteriorly disc spacer. Mild central stenosis. No foraminal stenosis. L4-L5: Advanced disc space narrowing with vacuum degeneration of the disc. Posterior osteophyte and disc bulge. Facet and ligament hypertrophy. Moderate to severe central stenosis. Moderate right and more severe left foraminal stenosis. L5-S1: Disc space narrowing with vacuum degeneration of the disc. Mild disc bulge effacing ventral epidural fat. Facet arthropathy with moderate bilateral foraminal stenosis. Disc protrudes more focally within the left foramen exacerbating foraminal stenosis. Soft tissues: Unremarkable. CT/CT lumbar spine wo con* [id number] IMPRESSION: 1. No fracture. No acute findings. 2. Anterior and posterior L2-L4 fusion. Intact osseous fusion across these levels. 3. Disc disease and degenerative findings with segmental spinal stenosis and multilevel foraminal stenosis detailed above. No significant change from recent comparison study. Radiation Dose CTDIVOL = (mGy): DLP = 2385.83 (mGy-cm) Dictated By: Kenneth Tomlinson MD Signed By: Kenneth Tomlinson MD Signed Date/Time: 10/31/19 0004 DD/ 0002 Discharge Plan Discharge Patient Disposition: Home, Self-Care Clinical Impression: Contusion Qualifiers: Encounter type: initial encounter Contusion area: lower back Qualified Code(s): S30.0XXA - Contusion of lower back and pelvis, initial encounter Condition: Stable Prescriptions: No Action levothyroxine 25 mcg tablet 25 mcg PO DAILY RF: 0 oxycodone-acetaminophen 10-325 mg tablet 1 tab PO TID RF: 0 amlodipine 10 mg tablet 10 mg PO DAILY RF: 0 gabapentin 300 mg capsule 300 mg PO TID RF: 0 nitrofurantoin monohyd/m-cryst 100 mg capsule 100 mg PO BID RF: 0 Discharge Orders: Discharge Order (Routine); Ordered 10/31/19 Ordered By: Maryam Velazco Referrals: Mar Cortez MD [Primary Care Provider] - 4-7 days Discharge Diet: Advance as tolerated Discharge Activity: Increase activity as tolerated Patient Instructions: Contusion in Adults (ED) Activity Restrictions/Additional Instructions: Please return to the ER immediately for any of the signs or symptoms listed on y our discharge instruction sheets, worsening/changing of your symptoms, you are not getting better as quickly as expected, or for ANY other cause or concerns. Discharge Date/Time: 10/31/19 01:08 Coding Level of Care Code ED Armature Tester for Chg Fwd Exam Comprehensive The documentation recorded by the Woo gutierres Stephanie Lyn, accurately reflects the service I personally performed and the decisions made by Mora brooks Eli N Oct 30, 2019 22:16
--- NOTE | 2019-10-30 22:28 | CTR_ITS ---
PROCEDURE INFORMATION: Exam: CT Thoracic Spine Without Contrast Exam date and time: 10/30/2019 10:29 PM Age: 78 years old Clinical indication: Injury or trauma; Fall; Initial encounter; Blunt trauma (contusions or hematomas); Additional info: Pain/injury/fall TECHNIQUE: Imaging protocol: Computed tomography images of the thoracic spine without contrast. Total DLP: 2046.09 mGy-cm Radiation optimization: All CT scans at this facility use at least one of these dose optimization techniques: automated exposure control; mA and/or kV adjustment per patient size (includes targeted exams where dose is matched to clinical indication); or iterative reconstruction. COMPARISON: CT thoracic spin wo con* [id number] 10/24/2019 9:37 PM FINDINGS: Vertebrae: There is no fracture. Vertebral bodies maintain their height. There is a mild dextroscoliosis. Alignment is otherwise normal. There is no focal osseous lesion. There are endplate osteophytes throughout the thoracic spine. There is disc space narrowing throughout the thoracic spine. Discs/Spinal canal/Neural foramina: There is spondylosis and disc space narrowing in the lower cervical spine from C5-C6 to C7-T1. There are posterior osteophytes and disc bulges resulting in mild central stenosis at C5-C6 and C6-C7. T1-T2: Severe bilateral foraminal stenosis. Small right paracentral posterior osteophyte. No central stenosis. Mild disc bulges and osteophytes from T6-T7 to T10-T11 without spinal stenosis. T11-T12: Posterior osteophyte and disc bulge with mild central stenosis. There is moderate to severe right and more severe left foraminal stenosis. T12-L1: Mild disc bulge. Mild central stenosis. Moderate right and more severe left foraminal stenosis.. Soft tissues: Unremarkable. Heart: Coronary artery calcifications are noted. CT/CT thoracic spin wo con* [id number] IMPRESSION: 1. No fracture or acute findings. 2. Degenerative findings are detailed above. No significant change from recent comparison scan. Radiation Dose CTDIVOL = (mGy): DLP = 2046.09 (mGy-cm)
--- NOTE | 2019-10-30 22:28 | CTR_ITS ---
PROCEDURE INFORMATION: Exam: CT Lumbar Spine Without Contrast Exam date and time: 10/30/2019 10:29 PM Age: 78 years old Clinical indication: Injury or trauma; Fall; Initial encounter; Blunt trauma (contusions or hematomas); Prior surgery; Surgery date: 6+ months; Additional info: Pain/injury/fall TECHNIQUE: Imaging protocol: Computed tomography images of the lumbar spine without contrast. Total DLP: 2385.83 mGy-cm Radiation optimization: All CT scans at this facility use at least one of these dose optimization techniques: automated exposure control; mA and/or kV adjustment per patient size (includes targeted exams where dose is matched to clinical indication); or iterative reconstruction. COMPARISON: CT lumbar spine wo con* [id number] 10/24/2019 9:40 PM FINDINGS: Vertebrae: There is no vertebral fracture. Vertebral bodies maintain their height. No fracture of the posterior elements. There is no focal osseous lesion. T11-T12: Advanced spondylosis and disc space narrowing with posterior osteophyte and disc bulge. Mild central stenosis. Moderate to severe right and more severe left foraminal stenosis. T12-L1: Advanced disc space narrowing with vacuum degeneration of the disc. Endplate osteophytes. Mild disc bulge. Facet arthropathy with moderate right and more severe left foraminal stenosis. Mild central stenosis. L1-L2: Spondylosis and advanced disc space narrowing. Vacuum degeneration of the disc. Posterior osteophyte and disc bulge. Mild retrolisthesis. Facet and ligament hypertrophy. Severe central and foraminal stenosis. L2-L3: Anterior and posterior fusion.Posteriorly spinal rods and transpedicular screws. Anteriorly disc spacer. Intact osseous fusion anteriorly and posteriorly. Mild central stenosis. No foraminal stenosis. L3-L4: Anterior and posterior fusion. Intact fusion anteriorly and posteriorly. Posteriorly spinal rods and transpedicular screws. Anteriorly disc spacer. Mild central stenosis. No foraminal stenosis. L4-L5: Advanced disc space narrowing with vacuum degeneration of the disc. Posterior osteophyte and disc bulge. Facet and ligament hypertrophy. Moderate to severe central stenosis. Moderate right and more severe left foraminal stenosis. L5-S1: Disc space narrowing with vacuum degeneration of the disc. Mild disc bulge effacing ventral epidural fat. Facet arthropathy with moderate bilateral foraminal stenosis. Disc protrudes more focally within the left foramen exacerbating foraminal stenosis. Soft tissues: Unremarkable. CT/CT lumbar spine wo con* [id number] IMPRESSION: 1. No fracture. No acute findings. 2. Anterior and posterior L2-L4 fusion. Intact osseous fusion across these levels. 3. Disc disease and degenerative findings with segmental spinal stenosis and multilevel foraminal stenosis detailed above. No significant change from recent comparison study. Radiation Dose CTDIVOL = (mGy): DLP = 2385.83 (mGy-cm)
[2019-10-30] MEDS: HYDROcodone-acetaminophen 5-325 mg Tablet 1 TAB PO (22:55)
[2019-10-31 01:07] VITALS: BP 120/82; PULSE 78; RESP 18; O2SAT 93
== END 2019-10-31 01:08 | disposition home or self-care (01) ==
PROVIDERS: Emergency Provider Emergency Medicine; Family Provider Family Medicine; PCP Family Medicine
DX: T14.8XXA Other injury of unspecified body region, initial encounter (principal); W06.XXXA Fall from bed, initial encounter; E11.9 Type 2 diabetes mellitus without complications; I10 Essential (primary) hypertension; E03.9 Hypothyroidism, unspecified
CPT/HCPCS: 72128; 72131; 99281; 99283

== ENCOUNTER 2019-11-19 13:19 | Outpatient (CLI) | payer MEDICARE, OTHER, SELFPAY ==
--- NOTE | 2019-11-19 13:35 | CT_ITS ---
WS: [id number] CTA THORACIC AORTA WITH AND WITHOUT CONTRAST HISTORY: THORACIC AORTIC ANEURYSM TECHNIQUE: CT imaging of the thorax is performed with and without contrast. After noncontrast imaging is performed, CT angiogram is performed during injection of Omnipaque 300; 95 mL IV.. Sagittal and c oronal reconstructions, sagittal and coronal MIP imaging is submitted. All CT scans at [facility] use at least one of these dose optimization techniques: automated exposure control; mA and/o r kV adjustment per patient size (includes targeted exams where dose is matched to clinical indicatio n); or iterative reconstruction. DLP: 1272.99 mGycm COMPARISON: 04/02/2019 Mild dilatation of the thoracic aorta. Maximum transverse diameter of the ascending aorta is 4.0 cm. Normal tapering through the arch. Normal diameter of the descending thoracic aorta. There are a few s cattered plaques. No interval injury or tear. Pulmonary artery size is slightly enlarged. LEFT subcla vian artery is normal caliber. LEFT carotid artery arises from the base of the innominate. Heart size is slightly enlarged. RIGHT heart chambers are larger than the LEFT. No pericardial or pleural effus ion. Linear atelectasis at the lung bases. No pneumonia. No mediastinal or hilar adenopathy. Small hiatal hernia. Prior cholecystectomy. Marked dilatation of the common bile duct and intrahepatic ducts. Similar to t he prior studies. Superior poles of each kidney demonstrate mild atrophy and cortical thinning. Pancr eas is severely atrophied. Increase in thoracic kyphosis. No osteoblastic or osteolytic bone disease. Severe bilateral glenohume ral joint arthritis. Moderate AC joint arthritis. CT/CT angio chest [id number] IMPRESSION: 1. Mild dilatation of the ascending thoracic aorta measuring 4.0 cm with no in crease in size. 2. Bovine arch. 3. Large RIGHT heart chambers, similar to the prior study. 4. Small hiatal hernia. 5. 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 6. Prior cholecystectomy with stable intrahepatic and extra hepatic duct dilat ation.
[2019-11-19] MEDS: iohexol 350 mg/mL 100 mL Btl IV (14:02)
== END 2019-11-19 13:20 | disposition home or self-care (01) ==
LOC: RADWPI 13:29
PROVIDERS: Family Provider Family Medicine; PCP Family Medicine; Visit Provider Thoracic Surgery (Cardiothoracic Vascular Surgery)
DX: I71.2 Thoracic aortic aneurysm, without rupture (principal); K44.9 Diaphragmatic hernia without obstruction or gangrene; M19.012 Primary osteoarthritis, left shoulder; M19.011 Primary osteoarthritis, right shoulder; Z90.49 Acquired absence of other specified parts of digestive tract; K83.8 Other specified diseases of biliary tract; I51.7 Cardiomegaly
CPT/HCPCS: 71275; Q9967

== ENCOUNTER 2020-03-25 14:45 | Outpatient (CLI) | payer MEDICARE, OTHER, SELFPAY ==
--- NOTE | 2020-03-25 14:50 | XR_ITS ---
WS: [id number] Right shoulder, 2 views, 03/25/2020 Clinical Data: PAIN IN SHOULDER Comparison: None. Findings: There is severe osteoarthritic change of the right humeral head and adjacent right glenoid. Severe talisha ny overgrowth is noted throughout the humeral head. There is osteoarthritic change of the right AC kristen int. No fractures or dislocations are seen. The adjacent right ribs are unremarkable. The soft tissue s are normal. 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
--- NOTE | 2020-03-25 14:50 | XR_ITS ---
WS: [id number] Cervical spine, 3 views, 03/25/2020 Clinical Data: CERVICAL SPINE CREPITUS Comparison: Cervical spine, 04/29/2019. Findings: Osteoarthritic change of the vertebral bodies C3-C6 is seen. The shoulders, the C7 vertebra l body on the lateral view. No definite compression fractures are seen. There is degenerative disc na rrowing at C3-C4, C4-6 C5 and C5-C6. The soft tissues of the neck and the lung apices are not remarka ble. The odontoid is normal. On the prior study there was a retrolisthesis of 0.4 cm at C3 on C4 and this is obscured by the overlying pedicles. No prevertebral soft tissue swelling is seen. XR/XR cervical spine 3V* [id number] Impression: 1. Osteoarthritis and degenerative disc disease from C3 through C5. 2. C3 on C4 retrolisthesis obscured by overlying bone.
--- NOTE | 2020-03-25 14:50 | XR_ITS ---
WS: [id number] Right hip, AP and frog-leg views, 03/25/2020 Clinical Data: PAIN IN RIGHT HIP Comparison: Right hip, 04/02/2019. Findings: The right hip arthroplasty is in good position. The components have not changed. The adjacent right p peterson and proximal right femur remain the same. XR/XR hip RT 2-3V wo/w pel* [id number] Impression: Right hip arthroplasty.
--- NOTE | 2020-03-25 14:50 | XR_ITS ---
WS: [id number] Left shoulder, 2 views, 03/25/2020 Clinical Data: PAIN IN SHOULDER Comparison: None. Findings: Severe osteoarthritic change of the left shoulder is seen. There is bony overgrowth of the humeral he ad and adjacent erosion of the left glenoid. The left AC joint appears normal. There are no fractures or dislocations. The adjacent left ribs are normal. The soft tissues are unremarkable. XR/XR shoulder LT min 2V* [id number] Impression: Severe osteoarthritis of the left shoulder.
== END 2020-03-25 14:46 | disposition home or self-care (01) ==
PROVIDERS: PCP Family Medicine; Visit Provider Family Medicine
DX: M25.551 Pain in right hip (principal); M19.012 Primary osteoarthritis, left shoulder; M19.011 Primary osteoarthritis, right shoulder; Z96.641 Presence of right artificial hip joint; M50.31 Other cervical disc degeneration, high cervical region; M47.812 Spondylosis without myelopathy or radiculopathy, cervical region
CPT/HCPCS: 72040; 73030; 73502

== ENCOUNTER 2020-12-31 18:54 | Emergency (ER) | payer MEDICARE, OTHER, SELFPAY ==
[2020-12-31 18:57] VITALS: BP 138/78; PULSE 95; RESP 17; O2SAT 94; BMI 33.1
--- NOTE | 2020-12-31 19:38 | CTR_ITS ---
PROCEDURE INFORMATION: Exam: CT Head Without Contrast Exam date and time: 12/31/2020 7:42 PM Age: 80 years old Clinical indication: Injury or trauma; Blunt trauma (contusions or hematomas); Without loss of consciousness; Patient HX: Fall while transitioning from chair to standing TECHNIQUE: Imaging protocol: Computed tomography of the head without contrast. Radiation optimization: All CT scans at this facility use at least one of these dose optimization techniques: automated exposure control; mA and/or kV adjustment per patient size (includes targeted exams where dose is matched to clinical indication); or iterative reconstruction. COMPARISON: CT head wo con* [id number] 10/23/2019 4:39 PM RADIATION DOSE METRICS: Total DLP (mGy-cm): 968.37 FINDINGS: Brain: There is marked cerebral atrophy. There is marked diffuse heterogeneity of the white matter attenuation, consistent with severe chronic white matter ischemic changes. Negative for intracranial hemorrhage. No intracranial mass. No acute brain ischemia. No midline shift of brain. No mass effect on brain. Cerebral ventricles: No ventriculomegaly. Bones/joints: Unremarkable. No acute fracture. Paranasal sinuses: Visualized sinuses are unremarkable. No fluid levels. Mastoid air cells: Visualized mastoid air cells are well aerated. Soft tissues: Unremarkable. CT/CT head wo con* [id number] IMPRESSION: 1. Bilateral lens replacements. Orbits are symmetric. 2. Negative for acute intracranial abnormality. 3. No changes from comparison. Radiation Dose CTDIVOL = (mGy): DLP = 968.37 (mGy-cm)
--- NOTE | 2020-12-31 19:38 | XRR_ITS ---
PROCEDURE INFORMATION: Exam: XR Right Shoulder Exam date and time: 12/31/2020 7:42 PM Age: 80 years old Clinical indication: Injury or trauma; Fall; Blunt trauma (contusions or hematomas); Shoulder; Right; Injury date: 12/31/2020 TECHNIQUE: Imaging protocol: XR Right shoulder. Views: 2 or more views. 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 Hypertrophic osseous spurring of the acromioclavicular articulation. Osteoporotic bones. No acute fractures. No joint space malalignment. Soft tissues: Normal. XR/XR shoulder RT min 2V* [id number] IMPRESSION: No acute findings.
--- NOTE | 2020-12-31 19:38 | XRR_ITS ---
PROCEDURE INFORMATION: Exam: XR Right Hip Exam date and time: 12/31/2020 7:42 PM Age: 80 years old Clinical indication: Injury or trauma; Fall; Blunt trauma (contusions or hematomas); Right; Hip; Injury date: 12/31/2020; Prior surgery TECHNIQUE: Imaging protocol: XR Right hip. Views: 1 view hip with pelvis when performed. COMPARISON: CR XR hip RT 2-3V wo/w pel* [id number] 03/25/2020 3:00 PM FINDINGS: Bones/joints: Total right hip arthroplasty is present. Unremarkable alignment. Negative for periprosthetic fracture. No prosthetic loosening. Soft tissues: Unremarkable. XR/XR hip RT 2-3V wo/w pel* [id number] IMPRESSION: No acute findings.
--- NOTE | 2020-12-31 19:38 | CTR_ITS ---
PROCEDURE INFORMATION: Exam: CT Cervical Spine Without Contrast Exam date and time: 12/31/2020 7:42 PM Age: 80 years old Clinical indication: Injury or trauma; Blunt trauma; Patient HX: Fall while transitioning from chair to standing TECHNIQUE: Imaging protocol: Computed tomography images of the cervical spine without contrast. Radiation optimization: All CT scans at this facility use at least one of these dose optimization techniques: automated exposure control; mA and/or kV adjustment per patient size (includes targeted exams where dose is matched to clinical indication); or iterative reconstruction. COMPARISON: CT Cervical Spine wo* [id number] 10/18/2017 5:44 PM RADIATION DOSE METRICS: Total DLP (mGy-cm): 464.38 FINDINGS: Vertebrae: No fractures. Unremarkable alignment. Diffuse osteopenia.The cervical spine demonstrates marked degenerative changes at multiple levels. Large posterior disc osteophyte complex at C3-C4 contributes to severe spinal canal stenosis. Posterior disc osteophyte complexes at C4-C5, C5-C6, C6-C7 also contribute to [id number] severity spinal canal stenosis. Soft tissues: Unremarkable. Lungs: Lung apices are normal. CT/CT cervical spin wo con* [id number] IMPRESSION: 1. Negative for acute cervical spine fracture. 2. Severe diffuse spondyloarthropathy changes which are most significant at C3-C4 intervertebral level with a large broad partially calcified posterior disc osteophyte complex causing severe spinal canal stenosis 3. No significant changes from comparison. Radiation Dose CTDIVOL = (mGy): DLP = 464.38 (mGy-cm)
[2020-12-31] MEDS: ketorolac 30 mg/mL INJ 15 MG IVP (19:46)
[2020-12-31 19:48] LABS: Basophils # 0.1 10^3/uL (0.0-0.1); Eosinophils # 0.4 10^3/uL (0.0-0.8); Eosinophils % 7.1 %; Hematocrit 40.6 % (37.0-47.0); Hemoglobin 13.5 g/dL (11.5-15.3); Lymphocytes # 1.6 10^3/uL (0.8-4.8); Lymphocytes % 30.8 %; Mean Corpuscular HGB Conc 33.3 g/dL (30.0-36.0); Mean Corpuscular Hemoglobin 29.9 pg (28.0-34.0); Mean Corpuscular Volume 89.8 fL (81-99); Mean Platelet Volume 9.2 fL (7.4-10.4); Monocytes # 0.5 10^3/uL (0.2-0.9); Monocytes % 10.3 %; Neutrophils # 2.64 10^3/uL (1.8-7.7); Neutrophils % 50.6 %; Nucleated Red Blood Cells % 0 %; Platelet Count 183 10^3/cmm (130-400); Red Blood Count 4.52 10^6/uL (4.1-5.3); Red Cell Distribution Width 12.8 % (12.1-15.1); White Blood Count 5.2 10^3/uL (4.0-10.0)
[2020-12-31 19:57] VITALS: BP 138/80; PULSE 77; RESP 16; O2SAT 93
[2020-12-31 19:58] LABS: Alanine Aminotransferase 12 U/L (0-33); Albumin Level 4.1 g/dL (3.5-5.2); Alkaline Phosphatase 48 IU/L (35-105); Anion Gap 13.1 (5-19); Aspartate Amino Transferase 14 U/L (0-32); Blood Urea Nitrogen 21 mg/dL (8-23); Calcium 8.9 mg/dL (8.5-10.5); Carbon Dioxide 27 mmol/L (22-29); Chloride 102 mmol/L (98-107); Globulin 2.4 g/dL (1.3-4.6); Glucose 161 mg/dL (65-115); Osmolality Calculated 292 mOsm/kg (285-295); Potassium 4.1 mmol/L (3.5-5.1); Sodium 138 mmol/L (136-145); Total Bilirubin 0.4 mg/dL (0.15-1.2); Total Protein 6.5 g/dL (6.6-8.7)
--- NOTE | 2020-12-31 20:25 | W.ED.FALL ---
HPI - Fall General: Chief Complaint: Fall Stated Complaint: fall with pain Time Seen by Provider: 12/31/20 18:58 Source: patient Mode of arrival: ambulatory Limitations: no limitations History of Present Illness: HPI Narrative: Patient is an 80-year-old female who fell while getting up from a lift chair. She was reaching for her walker and she fell hitting her right shoulder and her right hip on the table. She also hit her head on the windowsill. She denies any loss of consciousness. She is not on anticoagulation. She however has been having a headache for several days. She complains of severe pain and would like to be evaluated for this. complaint: fall Fall from: chair Fall witnessed: yes, by family Place fall occurred: home Loss of consciousness: None Prolonged down time: no Symptoms prior to fall: none Context: tripped/slipped Location of injury: head Location of injury - extremities: Right: shoulder Severity: severe Quality: sharp Associated symptoms-after fall: Reports difficulty walking and headache(s); Denies abdominal pain, chest pain, confusion, hematuria, lightheadedness, neck pain, numbness, short of breath, vertigo or weakness Review of Systems General: Reports: 10 or more systems reviewed and unremarkable except in HPI and below Card: Denies: chest pain or lightheadedness GI: Denies: abdominal pain : Denies: hematuria Musc: Denies: neck pain Neuro: Reports: headache(s) and difficulty walking; Denies: vertigo or confusion [facility] PFSH: Medical History (Updated 12/31/20 @ 21:14 by Charlene Robert MD, [facility]) Diabetes mellitus type 2, noninsulin dependent Fibromyalgia Hypertension Hypothyroidism Obstructive sleep apnea CPAP at home Surgical History History of back surgery History of bilateral knee replacement History of cholecystectomy History of right hip replacement History of shoulder surgery bilateral Family History Denies family history of CAD (coronary artery disease) Social History Smoking and tobacco status: never smoked Caregiver/support person: No Household members: none Physical Exam Const: COMMON NORMALS: no acute distress, average body habitus, patient oriented x3, no limitations, healthy appearing, alert and well nourished HENMT: COMMON NORMALS: normocephalic, atraumatic and moist oral mucous membranes HEAD & SCALP: normocephalic and atraumatic Eye: COMMON NORMALS: Equal, round and reactive pupils present, EOMs intact bilaterally, conjunctivae normal and no scleral icterus CONJUNCTIVA: Yes conjunctivae normal PUPIL: Yes Equal, round and reactive pupils present Neck/C-Spine: COMMON NORMALS: full ROM, supple, no meningeal signs, no JVD and No carotid bruits Chest: COMMONS NORMALS: normal inspection of the chest and normal palpation of entire chest wall Resp: COMMON NORMALS: normal respiratory effort, No retractions, No use of accessory muscles, clear to auscultation bilaterally and percussion normal AUSCULTATION: clear to auscultation bilaterally PERCUSSION: percussion normal Cardio: COMMON NORMALS: no JVD, regular rate, regular rhythm, S1 normal heart sound present, S2 normal heart sound present, No gallops present (Cardio), No clicks present (Cardio), No murmurs present (Cardio), No rub (Cardio) and Peripheral pulses 2+ throughout RATE: regular rate RHYTHM: regular rhythm HEART SOUNDS: S1 normal heart sound present and S2 normal heart sound present PERIPHERAL PULSES: Peripheral pulses 2+ throughout GI: COMMON NORMALS: Normal to inspection, nondistended, normoactive bowel sounds present, Soft to palpation, non-tender, No hepatosplenomegaly present, no masses and no bruits PALPATION: Yes Soft to palpation and Yes No hepatosplenomegaly present : COMMON NORMALS: Yes no CVA tenderness BLADDER/KIDNEY EXAM: Yes no CVA tenderness Back/Pelvis: COMMON NORMALS: no CVA tenderness Extremity: COMMON NORMALS: normal to inspection, full ROM, capillary refill normal, no calf tenderness and no pedal edema RIGHT UPPER EXTREMITY: Yes shoulder joint (tender, reduced ROM) Right shoulder: Yes Right shoulder joint neurovascular exam (intact) RIGHT LOWER EXTREMITY: Yes hip joint (tender in the hip joint and reduced ROM due to pain) Right hip: Yes neurovascular exam (intact) Neuro: COMMON NORMALS: patient oriented x3 SENSORIUM/ORIENTATION: Yes alert MENINGEAL SIGNS: Yes no meningeal signs Skin: COMMON NORMALS: no rashes or lesions noted, no wounds, turgor normal, no jaundice, no petechiae and no mottling GENERAL SKIN EXAM: no rashes or lesions noted and turgor normal Course Reevaluation(s): Reevaluation #1: Discussed her lab and imaging findings with her. Negative for acute findings. She still has a lot of shoulder pain and requested for oxycodone which she takes at home. Give her a dose of 10 mg of Percocet. Advised that her pain is going to get worse over the next few days before it gets better but that she should get better shortly. She voiced understanding and is in agreement with the plan Time: 21:13 Vital Signs: Vital signs: Vital Signs Pulse Rate 75 12/31/20 20:34 Respiratory Rate 16 12/31/20 21:22 Blood Pressure 126/63 12/31/20 20:34 Pulse Oximetry 100 12/31/20 21:24 MDM - Fall MDM Narrative: Medical decision making narrative: 80-year-old female patient who fell while getting out of her chair. She hit her shoulder, her head and her hip on the right. Evaluation in the emergency department was negative for acute fracture or dislocation. Basic blood work was unremarkable. She is discharged home with no new orders. She has a history of fibromyalgia and takes oxycodone at home. Medical Records: Attestation: I reviewed the patient's medical records. Lab Data: Attestation: I reviewed the patient's lab results. Labs: Lab Results 12/31/20 12/31/20 12/31/20 Range/Units 19:37 19:37 21:21 WBC 5.2 (4.0-10.0) 10^3/ uL RBC 4.52 (4.1-5.3) 10^6/u L Hgb 13.5 (11.5-15.3) g/dL Hct 40.6 (37.0-47.0) % MCV 89.8 (81-99) fL MCH 29.9 (28.0-34.0) pg MCHC 33.3 (30.0-36.0) g/dL RDW 12.8 (12.1-15.1) % Plt Count 183 (130-400) 10^3/c mm MPV 9.2 (7.4-10.4) fL Neut % (Auto) 50.6 % Lymph % (Auto) 30.8 % [place]asta % (Auto) 10.3 % Eos % (Auto) 7.1 % Baso % (Auto) 1.0 % Neut # (Auto) 2.64 (1.8-7.7) 10^3/u L Lymph # (Auto) 1.6 (0.8-4.8) 10^3/u L Shasta # (Auto) 0.5 (0.2-0.9) 10^3/u L Eos # (Auto) 0.4 (0.0-0.8) 10^3/u L Baso # (Auto) 0.1 (0.0-0.1) 10^3/u L Nucleated RBC % (a uto) 0 % Nucleated RBCs # 0.0 /100WBC Sodium 138 (136-145) mmol/L Potassium 4.1 (3.5-5.1) mmol/L Chloride 102 (98-107) mmol/L Carbon Dioxide 27 (22-29) mmol/L Anion Gap 13.1 (5-19) BUN 21 (8-23) mg/dL Creatinine 0.6 (0.5-0.9) mg/dL GFR Calculation Not Reportable Glucose 161 H (65-115) mg/dL POC Glucose 158 H (70-110) mg/dL Calculated Osmolal ity 292 (285-295) mOsm/k g Calcium 8.9 (8.5-10.5) mg/dL Total Bilirubin 0.4 (0.15-1.2) mg/dL AST 14 (0-32) U/L ALT 12 (0-33) U/L Alkaline Phosphata se 48 (35-105) IU/L Total Protein 6.5 L (6.6-8.7) g/dL Albumin 4.1 (3.5-5.2) g/dL Globulin 2.4 (1.3-4.6) g/dL Imaging Data^: Other CT: Attestation: I personally reviewed and interpreted this imaging study as follows: Radiologist's impression: [address] [address] [address] Scan Report Signed Patient: Meghna Crespo Christopher #: [id number] : 1At#:[id number] Age/Sex: 80 / FADM Date: 12/31/20 Loc: ERRoom/Bed: Attending Dr: Ordering Provider/Ordering MD: Charlene Robert MD, [facility] Date of Service: 12/31/20 Procedure(s): CT cervical spin wo con* [id number] Accession Number(s): [id number] Report Number: [id number] PROCEDURE INFORMATION: Exam: CT Cervical Spine Without Contrast Exam date and time: 12/31/2020 7:42 PM Age: 80 years old Clinical indication: Injury or trauma; Blunt trauma; Patient HX: Fall while transitioning from chair to standing TECHNIQUE: Imaging protocol: Computed tomography images of the cervical spine without contrast. Radiation optimization: All CT scans at this facility use at least one of these dose optimization techniques: automated exposure control; mA and/or kV adjustment per patient size (includes targeted exams where dose is matched to clinical indication); or iterative reconstruction. COMPARISON: CT Cervical Spine wo* [id number] 10/18/2017 5:44 PM RADIATION DOSE METRICS: Total DLP (mGy-cm): 464.38 FINDINGS: Vertebrae: No fractures. Unremarkable alignment. Diffuse osteopenia.The cervical spine demonstrates marked degenerative changes at multiple levels. Large posterior disc osteophyte complex at C3-C4 contributes to severe spinal canal stenosis. Posterior disc osteophyte complexes at C4-C5, C5-C6, C6-C7 also contribute to [id number] severity spinal canal stenosis. Soft tissues: Unremarkable. Lungs: Lung apices are normal. CT/CT cervical spin wo con* [id number] IMPRESSION: 1. Negative for acute cervical spine fracture. 2. Severe diffuse spondyloarthropathy changes which are most significant at C3-C4 intervertebral level with a large broad partially calcified posterior disc osteophyte complex causing severe spinal canal stenosis 3. No significant changes from comparison. Radiation Dose CTDIVOL = (mGy): DLP = 464.38 (mGy-cm) Dictated By:Roger Patel Signed By:Olinda Patel Date/Time:12/31/202101 DD/ 00 CT Head: Attestation: I personally reviewed and interpreted this imaging study as follows: Radiologist's impression: [facility] [address] [address] Scan Report Signed Patient: Meghna Crespo #: [id number] : 1Acc#:[id number] Age/Sex: 80 / FADM Date: 12/31/20 Loc: ERRoom/Bed: Attending Dr: Ordering Provider/Ordering MD: Charlene Robert MD, [facility] Date of Service: 12/31/20 Procedure(s): CT head wo con* [id number] Accession Number(s): [id number] Report Number: [id number] PROCEDURE INFORMATION: Exam: CT Head Without Contrast Exam date and time: 12/31/2020 7:42 PM Age: 80 years old Clinical indication: Injury or trauma; Blunt trauma (contusions or hematomas); Without loss of consciousness; Patient HX: Fall while transitioning from chair to standing TECHNIQUE: Imaging protocol: Computed tomography of the head without contrast. Radiation optimization: All CT scans at this facility use at least one of these dose optimization techniques: automated exposure control; mA and/or kV adjustment per patient size (includes targeted exams where dose is matched to clinical indication); or iterative reconstruction. COMPARISON: CT head wo con* [id number] 10/23/2019 4:39 PM RADIATION DOSE METRICS: Total DLP (mGy-cm): 968.37 FINDINGS: Brain: There is marked cerebral atrophy. There is marked diffuse heterogeneity of the white matter attenuation, consistent with severe chronic white matter ischemic changes. Negative for intracranial hemorrhage. No intracranial mass. No acute brain ischemia. No midline shift of brain. No mass effect on brain. Cerebral ventricles: No ventriculomegaly. Bones/joints: Unremarkable. No acute fracture. Paranasal sinuses: Visualized sinuses are unremarkable. No fluid levels. Mastoid air cells: Visualized mastoid air cells are well aerated. Soft tissues: Unremarkable. CT/CT head wo con* [id number] IMPRESSION: 1. Bilateral lens replacements. Orbits are symmetric. 2. Negative for acute intracranial abnormality. 3. No changes from comparison. Radiation Dose CTDIVOL = (mGy): DLP = 968.37 (mGy-cm) Dictated By:Roger Patel Signed By:Olinda Patel Date/Time:12/31/202099 DD/ 58 Xray Ortho: Attestation: I personally reviewed and interpreted this imaging study as follows: Radiologist's impression: [facility] [employer] [address] [place] [address]. [place] [address] XRay Report Signed Patient: Meghna Crespo #: [id number] : 1940cct#:[id number] Age/Sex: 80 / FADM Date: 12/31/20 Loc: ERRoom/Bed: Attending Dr: Ordering Provider/Ordering MD: Charlene Robert MD, [facility] Date of Service: 12/31/20 Procedure(s): XR hip RT 2-3V wo/w pel* [id number] Accession Number(s): [id number] Report Number: [id number] PROCEDURE INFORMATION: Exam: XR Right Hip Exam date and time: 12/31/2020 7:42 PM Age: 80 years old Clinical indication: Injury or trauma; Fall; Blunt trauma (contusions or hematomas); Right; Hip; Injury date: 12/31/2020; Prior surgery TECHNIQUE: Imaging protocol: XR Right hip. Views: 1 view hip with pelvis when performed. COMPARISON: CR XR hip RT 2-3V wo/w pel* [id number] 03/25/2020 3:00 PM FINDINGS: Bones/joints: Total right hip arthroplasty is present. Unremarkable alignment. Negative for periprosthetic fracture. No prosthetic loosening. Soft tissues: Unremarkable. XR/XR hip RT 2-3V wo/w pel* [id number] IMPRESSION: No acute findings. Dictated By:Roger Patel Signed By:Olinda Patel Date/Time:12/31/202024 DD/ 23 [facility] [employer] [address] [place] [address]. [place] [address] XRay Report Signed Patient: Meghna Crespo #: [id number] : 1940cct#:[id number] Age/Sex: 80 / FADM Date: 12/31/20 Loc: ERRoom/Bed: Attending Dr: Ordering Provider/Ordering MD: Charlene Robert MD, [facility] Date of Service: 12/31/20 Procedure(s): XR shoulder RT min 2V* [id number] Accession Number(s): [id number] Report Number: [id number] PROCEDURE INFORMATION: Exam: XR Right Shoulder Exam date and time: 12/31/2020 7:42 PM Age: 80 years old Clinical indication: Injury or trauma; Fall; Blunt trauma (contusions or hematomas); Shoulder; Right; Injury date: 12/31/2020 TECHNIQUE: Imaging protocol: XR Right shoulder. Views: 2 or more views. 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 Hypertrophic osseous spurring of the acromioclavicular articulation. Osteoporotic bones. No acute fractures. No joint space malalignment. Soft tissues: Normal. XR/XR shoulder RT min 2V* [id number] IMPRESSION: No acute findings. Dictated By:Roger Patel Signed By:Olinda Patel Date/Time:12/31/202024 DD/ 22 Discharge Plan Discharge Patient Disposition: Home Clinical Impression: Fall Qualifiers: Encounter type: initial encounter Qualified Code(s): W19.XXXA - Unspecified fall, initial encounter Acute shoulder pain Qualifiers: Laterality: right Qualified Code(s): M25.511 - Pain in right shoulder Condition: Stable Prescriptions: Continued oxycodone-acetaminophen 10-325 mg tablet 1 tab PO TID@,, RF: 0 amlodipine 10 mg tablet 10 mg PO DAILY@0900 RF: 0 gabapentin 300 mg capsule 900 mg PO BID RF: 0 ropinirole 0.25 mg tablet 0.25 mg PO BID@0900,2100 RF: 0 glimepiride 4 mg tablet 6 mg PO DAILY@0900 RF: 0 Vitamin D3 1 tab PO DAILY@0900 RF: 0 magnesium 1 tab PO DAILY@0900 RF: 0 vitamin B complex 1 tab PO DAILY@0900 RF: 0 levothyroxine 50 mcg tablet 50 mcg PO DAILY@0800 RF: 0 Discharge Orders: Discharge ED (Routine); Ordered 12/31/20 Ordered By: Charlene Robert Referrals: Mar Cortez MD [Primary Care Provider] - 1-3 days Discharge Diet: Usual diet Discharge Activity: Limit activity as instructed Patient Instructions: Fall Prevention for Older Adults (ED), Shoulder Sprain (ED) Activity Restrictions/Additional Instructions: Return for any new or worsening symptoms. Follow-up with your primary care provider within 3 days. Continue pain medications as prescribed by your doctor. Rest for the next day or 2 and then gradually resume your prior levels of activity. Your pains will probably get worse over the next few days before gradually starts to get better. Coding Level of Care Code ED Charge Coordinator for [employer] Fwd Exam Comprehensive
[2020-12-31 20:34] VITALS: BP 126/63; PULSE 75; O2SAT 94
[2020-12-31 21:22] VITALS: RESP 16
[2020-12-31] MEDS: oxyCODONE-APAP 10-325 mg Tablet 1 TAB PO (21:22)
[2020-12-31 21:24] VITALS: O2SAT 100
[2020-12-31 21:31] LABS: Glucose Point of Care 158 mg/dL (70-110)
== END 2020-12-31 21:36 | disposition home or self-care (01) ==
PROVIDERS: Emergency Provider Family Medicine; PCP Family Medicine
DX: M25.511 Pain in right shoulder (principal); E11.9 Type 2 diabetes mellitus without complications; I10 Essential (primary) hypertension
CPT/HCPCS: 36416; 70450; 72125; 73030; 73502; 80053; 82962; 85025; 96374; 99283; J1885

== ENCOUNTER 2021-01-31 08:35 | Outpatient (CLI) | payer MEDICARE, OTHER, SELFPAY ==
--- NOTE | 2021-01-31 09:00 | CT_ITS ---
WS: [id number] CTA THORACIC AORTA WITH AND WITHOUT CONTRAST. HISTORY: I71.2 - Thoracic aortic aneurysm, without rupture TECHNIQUE: CT imaging of the thorax is performed with and without contrast. After noncontrast imaging is performed, CT angiogram is performed during injection of Omnipaque 350; 95 mL IV.. Sagittal and c oronal reconstructions, sagittal and coronal MIP imaging is submitted. All CT scans at [facility] use at least one of these dose optimization techniques: automated exposure control; mA and/o r kV adjustment per patient size (includes targeted exams where dose is matched to clinical indicatio n); or iterative reconstruction. DLP: 1117.38 mGycm COMPARISON: 11/19/2019 Mild dilatation of the ascending aorta. Maximum diameter 4.1 cm. No increase in size of the mild dila tation. Normal size descending thoracic aorta at 2.5 cm. There is very mild intimal thickening. No pl aque ulcerations or dissection. Again noted is a bovine arch. Normal size pulmonary artery. Again not ed is mild enlargement of the RIGHT heart chambers. No pericardial effusion. No pleural effusion. No mediastinal or hilar adenopathy. Lungs are clear. No pneumonia. Mild dependent changes posteriorly. Prior cholecystectomy. Significant artifact through the abdomen by patient arms. Again noted is the i ntrahepatic duct dilatation which is stable and may be physiologic. Moderate increase in thoracic kyphosis with advanced thoracic spondylitic changes. Severe bilateral o steoarthritis noted at the glenohumeral joints with loss of the joint space and subluxations and mult iple loose bodies. CT/CT angio chest [id number] IMPRESSION: 1. Stable ascending thoracic aortic aneurysm at 4.1 cm with no significant inc rease in size. 2. Mild atherosclerosis thoracic aorta. 3. Bovine arch. 4. 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
[2021-01-31] MEDS: iohexol 350 mg/mL 100 mL Btl IV (09:28)
== END 2021-01-31 08:36 | disposition home or self-care (01) ==
PROVIDERS: PCP Family Medicine; Visit Provider Thoracic Surgery (Cardiothoracic Vascular Surgery)
DX: I71.2 Thoracic aortic aneurysm, without rupture (principal); I70.0 Atherosclerosis of aorta; I51.7 Cardiomegaly
CPT/HCPCS: 71275; Q9967

== ENCOUNTER 2021-07-22 09:55 | Outpatient (CLI) | payer MEDICARE, OTHER, SELFPAY ==
[2021-07-22 10:28] LABS: Blood Urine Neg (Negative); Glucose Urine UA Norm (Normal); Ketones Urine Negative (Negative); Protein Urine Neg (Negative); Specific Gravity, Urine 1.015 (1.005-1.030); Urine Appearance Cloudy (CLEAR); Urine Color Yellow (Yellow); pH Urine 5 (5-7)
[2021-07-22 10:29] LABS: Add Urine Microscopic? YES; Bilirubin Urine Neg (Negative); Leukocyte Esterase Urine 1+ (Negative); Nitrate Urine Positive (Negative); Urobilinogen Urine Norm (Negative)
[2021-07-22 11:04] LABS: Add Urine Culture? Yes; Bacteria Urine 2+ /hpf; Calcium Oxalate Crystals Urine 15-25 /hpf; Mucus Urine 3+ /hpf; Squamous Epithelial Cell Urine 0-4 /hpf (0-5)
== END 2021-07-22 09:56 | disposition home or self-care (01) ==
PROVIDERS: PCP Family Medicine; Visit Provider Nurse Practitioner Family
DX: I10 Essential (primary) hypertension (principal)
CPT/HCPCS: 81001; 87077; 87086; 87186

== ENCOUNTER 2021-09-20 13:16 | Outpatient (CLI) | payer OTHER, SELFPAY ==
[2021-09-20 13:46] VITALS: BP 98/57; PULSE 60; RESP 20; TEMP 36.7; O2SAT 92; BMI 31.1
[2021-09-20 14:53] VITALS: BP 94/57; PULSE 56; RESP 18; TEMP 36.7; O2SAT 90
[2021-09-20 15:52] VITALS: BP 104/73; PULSE 60; RESP 17; TEMP 36.9; O2SAT 96
== END 2021-09-20 13:17 | disposition home or self-care (01) ==
LOC: OPS 13:25
PROVIDERS: PCP Family Medicine; Visit Provider Nurse Practitioner Family
DX: U07.1 COVID-19 (principal)
CPT/HCPCS: 96365

== ENCOUNTER 2022-01-16 09:29 | Emergency (ER) | payer MEDICARE, MEDICAID, SELFPAY ==
[2022-01-16 09:29] VITALS: BP 129/71; PULSE 75; RESP 16; TEMP 36.6; O2SAT 96; BMI 31.4
[2022-01-16 09:38] VITALS: BP 135/82; PULSE 73; RESP 16; TEMP 36.4; O2SAT 93
--- NOTE | 2022-01-16 09:39 | W.ED.NEUROSD ---
HPI - Neuro Symptoms/Deficit General: Chief Complaint: Neuro Symptoms/Deficit Stated Complaint: AMS, Slurred Speech Time Seen by Provider: 01/16/22 09:37 Source: EMS Mode of arrival: EMS Limitations: altered mental status History of Present Illness: 81-year-old female arrives from the senior care with altered mental status and slurred speech sent in by senior care staff with report of altered mental status and ability to follow simple commands that they noted began this morning they placed the onset time at around 840. On arrival here she is awake and alert answers questions she is able to give a moderately good history. She denies any pain any chest pain any abdominal pain any dysuria urgency or frequency nausea vomiting or diarrhea. She is mildly but pleasantly confused. She has some chronic back pain which is unchanged. She does take Percocet 10 mg 3 times daily as needed. Onset (ago): hour(s) (1) Last Observed Normal: 08:40 Timing confirmed by: caregiver History of same: Yes Severity: mild Quality: weak Relieving factors: time Exacerbating factors: none Context: other (Difficult to arouse this morning) Associated symptoms: Deny chest pain, cough, diaphoresis, fevers/chills, headache(s), anorexia, malaise, nausea, seizures, short of breath, syncope, tingling, vertigo, vomiting or weakness Treatments Prior to Arrival: none Review of Systems Const: Reports: change in appetite; Denies: fever(s), chills, body aches, malaise or diaphoresis ENMT: Denies: throat pain, ear or mastoid pain, nasal discharge or nasal congestion Card: Denies: chest pain or syncope Resp: Denies: dyspnea, productive cough or non-productive cough GI: Denies: abdominal pain, nausea or vomiting : Denies: flank pain, difficulty voiding, dysuria, urinary frequency or urinary urgency Skin/Breast: Denies: rash or pruritus Neuro: Denies: headache(s) or vertigo PFSH ED PFSH: Medical History Diabetes mellitus type 2, noninsulin dependent Fibromyalgia Hypertension Hypothyroidism Obstructive sleep apnea CPAP at home Surgical History History of back surgery History of bilateral knee replacement History of cholecystectomy History of right hip replacement History of shoulder surgery bilateral Family History Denies family history of CAD (coronary artery disease) Social History Smoking and tobacco status: never smoked Caregiver/support person: No Household members: none NIH stroke score NIHSS: Level Of Consciousness - 1a: 0 Level Of Consciousness Questions - 1b: Both Correct Level Of Consciousness Commands - 1c: Both Correct Best Gaze - 2: Normal Visual [place] - 3: No Visual Loss Facial Palsy - 4: Normal Motor Arm Right - 5: Effort Against [place] Motor Arm Left - 5: Effort Against [place] Motor Leg Right - 6: Effort Against [place] Motor Leg Left - 6: Effort Against [place] Limb Ataxia - 7: Present In Two Limbs Sensory - 8: Normal Best Language - 9: No Aphasia Dysarthia - 10: Normal Extinction And Inattention - 11: 0 Score: Total Score: 10 Physical Exam Const: ORIENTATION/CONSCIOUSNESS: Yes awake HENMT: COMMON NORMALS: normocephalic, atraumatic and hearing grossly normal bilaterally HEAD & SCALP: normocephalic and atraumatic Resp: COMMON NORMALS: normal respiratory effort, No retractions, No use of accessory muscles and clear to auscultation bilaterally AUSCULTATION: clear to auscultation bilaterally Cardio: COMMON NORMALS: regular rate, regular rhythm and No murmurs present (Cardio) RATE: regular rate RHYTHM: regular rhythm GI: COMMON NORMALS: Soft to palpation and No hepatosplenomegaly present AUSCULTATION: Yes normoactive bowel sounds PALPATION: Yes Soft to palpation, No Tenderness to palpation present (GI), No Guarding due to palpation present (GI) and Yes No hepatosplenomegaly present Extremity: COMMON NORMALS: normal to inspection, capillary refill normal, no clubbing, cyanosis or edema, no calf tenderness and no pedal edema Skin: COMMON NORMALS: no rashes or lesions noted GENERAL SKIN EXAM: no rashes or lesions noted Course Vital Signs: Vital signs: Vital Signs Temperature 97.5 F L 01/16/22 09:38 Pulse Rate 79 01/16/22 11:38 Respiratory Rate 18 01/16/22 11:38 Blood Pressure 135/82 01/16/22 11:38 Pulse Oximetry 97 01/16/22 11:38 MDM - Neuro Symptoms/Deficit Medical Decision Making Her NIH score is listed as 10. However she is very weak and not able to move either her arms or legs on the left or right but a little more prominent on the right from her previous stroke. Otherwise she actually offers a very good history she has good recollection she does follow commands. Medical Records I reviewed the patient's medical records. Lab Data I reviewed the patient's lab results. : 01/16/22 09:01/16/22 09: Radiology Impressions Chest X-Ray 01/16/2253 IMPRESSION: No acute chest abnormality. Head CT 01/16/22 IMPRESSION: 1. No acute intracranial hemorrhage or edema. 2. Cerebral atrophy and moderate small vessel ischemic disease. Laboratory Results WBC 5.7 10^3/uL (4.0-10.0) 01/16/22: RBC 4.85 10^6/uL (4.1-5.3) 01/16/22 09: Hgb 13.7 g/dL (11.5-15.3) 01/16/22: Hct 42.6 % (37.0-47.0) 01/16/22: MCV 87.8 fl (81-99) 01/16/22: MCH 28.2 pg (28.0-34.0) 01/16/22: MCHC 32.2 g/dL (30.0-36.0) 01/16/22: RDW 13.2 % (12.1-15.1) 01/16/22: Plt Count 174 10^3/cmm (130-400) 01/16/22: MPV 9.6 fL (7.4-10.4) 01/16/22: Neut % (Auto) 58.7 % 01/16/22: Lymph % (Auto) 21.7 % 01/16/22: [place] % (Auto) 10.3 % 01/16/22: Eos % (Auto) 8.4 % 01/16/22: Baso % (Auto) 0.7 % 01/16/22: Neut # (Auto) 3.35 10^3/uL (1.8-7.7) 01/16/22 09: Lymph # (Auto) 1.2 10^3/uL (0.8-4.8) 01/16/22: [place] # (Auto) 0.6 10^3/uL (0.2-0.9) 01/16/22 09:22 Eos # (Auto) 0.5 10^3/uL (0.0-0.8) 01/16/22: Baso # (Auto) 0.0 10^3/uL (0.0-0.1) 01/16/22 09: Nucleated RBC % (auto) 0 % 01/16/22: Nucleated RBCs # 0.0 /100WBC 01/16/22: PT 13.00 SECONDS (12.1-14.9) 01/16/22: INR 0.95 (0.8-1.2) 01/16/22 09: APTT 27.7 SECONDS (23.9-36.7) 01/16/22 09: Sodium 143 mmol/L (136-145) 01/16/22 09: Potassium 4.1 mmol/L (3.5-5.1) 01/16/22 09: Chloride 102 mmol/L (98-107) 01/16/22: Carbon Dioxide 31 mmol/L (22-29) H 01/16/22 09: Anion Gap 14.1 (5-19) 01/16/22 09: BUN 17 mg/dL (8-23) 01/16/22 09: Creatinine 0.6 mg/dL (0.5-0.9) 01/16/22 09: GFR Calculation Not Reportable 01/16/22 09: Glucose 143 mg/dL (65-115) H 01/16/22 09: POC Glucose 130 mg/dL (70-110) H 01/16/22 10:01 Calculated Osmolality 300 mOsm/kg (285-295) H 01/16/22: Calcium 9.8 mg/dL (8.5-10.5) 01/16/22 09: Total Bilirubin 0.2 mg/dL (0.15-1.2) 01/16/22 09:22 AST 11 U/L (0-32) 01/16/22 09:22 ALT 8 U/L (0-33) 01/16/22 09:22 Alkaline Phosphatase 61 IU/L (35-105) 01/16/22 09:22 Total Protein 6.3 g/dL (6.6-8.7) L 01/16/22 09:22 Albumin 4.1 g/dL (3.5-5.2) 01/16/22 09: Globulin 2.2 g/dL (1.3-4.6) 01/16/22 09:22 Urine Color Straw (Yellow) 01/16/22 10:57 Urine Appearance Hazy (CLEAR) A 01/16/22 10:57 Urine pH 5 (5-7) 01/16/22 10:57 Ur Specific [place] 1.015 (1.005-1.030) 01/16/22 10:57 Urine Protein Neg (Negative) 01/16/22 10:57 Urine Glucose (UA) Norm (Normal) 01/16/22 10:57 Urine Ketones Negative (Negative) 01/16/22 10:57 Urine Blood Trace (Negative) H 01/16/22 10:57 Urine Nitrate Positive (Negative) H 01/16/22 10:57 Urine Bilirubin Neg (Negative) 01/16/22 10:57 Urine Urobilinogen Norm mg/dL (Negative) 01/16/22 10:57 Ur Leukocyte Esterase Trace (Negative) H 01/16/22 10:57 Urine RBC Rare /hpf (0-2) 01/16/22 10:57 Urine WBC 15-25 /hpf (0-5) H 01/16/22 10:57 Ur Squamous Epith Cells 5-10 /hpf (0-5) H 01/16/22 10:57 Amorphous Sediment Not Reportable 01/16/22 10:57 Urine Bacteria 4+ /hpf (NONE) H 01/16/22 10:57 Urine Opiates Screen Negative ng/mL (Negative) 01/16/22 10:57 Ur Barbiturates Screen Negative ng/mL (Negative) 01/16/22 10:57 Ur Phencyclidine Scrn Negative ng/mL (Negative) 01/16/22 10:57 Ur Amphetamines Screen Negative ng/mL (Negative) 01/16/22 10:57 U Benzodiazepines Scrn Positive ng/mL (Negative) H 01/16/22 10:57 Urine Cocaine Screen Negative ng/mL (Negative) 01/16/22 10:57 U Marijuana (THC) Screen Negative ng/mL (Negative) 01/16/22 10:57 Discharge Plan Discharge Patient Disposition: Home Clinical Impression: Weakness, History of CVA (cerebrovascular accident) Condition: Stable Prescriptions: No Action oxycodone-acetaminophen 10-325 mg tablet 1 tab PO TID@,, 0RF amlodipine 10 mg tablet 10 mg PO DAILY@0900 0RF gabapentin 300 mg capsule 900 mg PO BID 0RF ropinirole 0.25 mg tablet 0.25 mg PO BID@0900,2100 0RF glimepiride 4 mg tablet 6 mg PO DAILY@0900 0RF Vitamin D3 1 tab PO DAILY@0900 0RF magnesium 1 tab PO DAILY@0900 0RF vitamin B complex 1 tab PO DAILY@0900 0RF levothyroxine 50 mcg tablet 50 mcg PO DAILY@0800 0RF Discharge Orders: Discharge ED (Routine); Ordered 01/16/22 Ordered By: Chino Heller Referrals: Mar Cortez MD [Primary Care Provider] - Discharge Diet: Usual diet Discharge Activity: Increase activity as tolerated Patient Instructions: Opioid Safety Coding Level of Care Code 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
--- NOTE | 2022-01-16 09:53 | CT_ITS ---
WS: [id number] CT HEAD NONCONTRAST HISTORY: Symptoms of Acute Stroke TECHNIQUE: Contiguous axial imaging performed through the brain in 2.5 mm imaging. Bone and soft tiss ue windows. Sagittal and coronal reformats reviewed. All CT scans at [facility] use at least one of these dose optimization techniques: automated exposure control; mA and/or kV adjustment per pa tient size (includes targeted exams where dose is matched to clinical indication); or iterative recon struction. DLP: 888.03 mGy.cm COMPARISON: 12/31/2020 No acute intracranial hemorrhage, midline shift or mass effect. Mild diffuse atrophy. Moderate small vessel ischemic changes in the periventricular white matter. No focal area of edema. Ventricles: Normal size with no hydrocephalus. No inferior displacement of cerebellar tonsils. Paranasal sinuses: As visualized are clear. Mastoid air cells: Well pneumatized. Calvarium and scalp: Skull is intact with no soft tissue edema or swelling. CT/CT head wo con* [id number] IMPRESSION: 1. No acute intracranial hemorrhage or edema. 2. Cerebral atrophy and moderate small vessel ischemic disease.
--- NOTE | 2022-01-16 09:53 | ECG_ITS ---
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 Measurements Intervals [place] Rate: 74 P: 82 GA: 195 QRS: 56 QRSD: 82 T: 67 QT: 354 QTc: 393 Interpretive Statements SINUS RHYTHM Compared to ECG 10/24/2019 02:35:46 T-wave abnormality no longer present Electronically Signed On 01-16-2022 21:36:29 CDT by Matty Galloway M.D. [id number]
--- NOTE | 2022-01-16 09:53 | XR_ITS ---
WS: [id number] XR chest 1V portable [id number] REASON FOR EXAM: dyspnea FINDINGS: Moderate tortuosity and ectasia of the thoracic aorta without aneurysmal dilatation. Mild cardiac enlargement. There may have been some increase in heart size since the previous examinat ion of 10/24/2019. Calcified granulomatous disease in both hemithoraces. No acute pulmonary parenchymal or pleural abnormality. Significant degenerative spondylosis in the mid and lower thoracic spine. 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 XR/XR chest 1V portable [id number] IMPRESSION: No acute chest abnormality.
[2022-01-16 10:15] LABS: Glucose Point of Care 130 mg/dL (70-110)
[2022-01-16 10:18] LABS: Basophils % 0.7 %; Eosinophils # 0.5 10^3/uL (0.0-0.8); Eosinophils % 8.4 %; Hematocrit 42.6 % (37.0-47.0); Hemoglobin 13.7 g/dL (11.5-15.3); Lymphocytes # 1.2 10^3/uL (0.8-4.8); Lymphocytes % 21.7 %; Mean Corpuscular HGB Conc 32.2 g/dL (30.0-36.0); Mean Corpuscular Hemoglobin 28.2 pg (28.0-34.0); Mean Corpuscular Volume 87.8 fl (81-99); Mean Platelet Volume 9.6 fL (7.4-10.4); Monocytes # 0.6 10^3/uL (0.2-0.9); Monocytes % 10.3 %; Neutrophils # 3.35 10^3/uL (1.8-7.7); Neutrophils % 58.7 %; Nucleated Red Blood Cells % 0 %; Platelet Count 174 10^3/cmm (130-400); Red Blood Count 4.85 10^6/uL (4.1-5.3); Red Cell Distribution Width 13.2 % (12.1-15.1); White Blood Count 5.7 10^3/uL (4.0-10.0)
[2022-01-16 10:31] LABS: INR 0.95 (0.8-1.2)
[2022-01-16 10:32] LABS: Partial Thromboplastin Time 27.7 SECONDS (23.9-36.7)
[2022-01-16 10:37] LABS: Alanine Aminotransferase 8 U/L (0-33); Albumin Level 4.1 g/dL (3.5-5.2); Alkaline Phosphatase 61 IU/L (35-105); Anion Gap 14.1 (5-19); Aspartate Amino Transferase 11 U/L (0-32); Blood Urea Nitrogen 17 mg/dL (8-23); Calcium 9.8 mg/dL (8.5-10.5); Carbon Dioxide 31 mmol/L (22-29); Chloride 102 mmol/L (98-107); Globulin 2.2 g/dL (1.3-4.6); Glucose 143 mg/dL (65-115); Osmolality Calculated 300 mOsm/kg (285-295); Potassium 4.1 mmol/L (3.5-5.1); Sodium 143 mmol/L (136-145); Total Bilirubin 0.2 mg/dL (0.15-1.2); Total Protein 6.3 g/dL (6.6-8.7)
[2022-01-16 11:16] LABS: Glucose Urine UA Norm (Normal); Protein Urine Neg (Negative); Specific Gravity, Urine 1.015 (1.005-1.030); Urine Appearance Hazy (CLEAR); Urine Color Straw (Yellow); pH Urine 5 (5-7)
[2022-01-16 11:17] LABS: Add Urine Culture? Yes; Add Urine Microscopic? YES; Amphetamines Screen Urine Negative (Negative); Bacteria Urine 4+ /hpf; Barbiturates Screen Urine Negative (Negative); Benzodiazepines Screen Urine Positive (Negative); Bilirubin Urine Neg (Negative); Blood Urine Trace (Negative); Cocaine Screen Urine Negative (Negative); Ketones Urine Negative (Negative); Leukocyte Esterase Urine Trace (Negative); Nitrate Urine Positive (Negative); Opiate Screen Urine Negative (Negative); PCP Screen Urine Negative (Negative); RBC Urine RARE /hpf (0-2); THC Screen Urine Negative (Negative); Urobilinogen Urine Norm (Negative); WBC Urine 15-25 /hpf (0-5)
[2022-01-16 11:38] VITALS: BP 135/82; PULSE 79; RESP 18; O2SAT 97
== END 2022-01-16 12:22 | disposition home or self-care (01) ==
PROVIDERS: Emergency Provider Family Medicine; PCP Family Medicine
DX: R53.1 Weakness (principal); I69.951 Hemiplegia and hemiparesis following unspecified cerebrovascular disease affecting right dominant side; Z79.01 Long term (current) use of anticoagulants
CPT/HCPCS: 36416; 70450; 71045; 80053; 80306; 81001; 82962; 85025; 85610; 85730; 87077; 87086; 87186; 93005; 99285

== ENCOUNTER 2022-03-05 02:47 | Emergency (ER) | payer MEDICARE, MEDICAID, SELFPAY ==
[2022-03-05 02:50] VITALS: BP 159/87; PULSE 93; RESP 30; TEMP 37.7; O2SAT 91; BMI 31.4
--- NOTE | 2022-03-05 03:21 | CTR_ITS ---
PROCEDURE INFORMATION: Exam: CT Abdomen And Pelvis Without Contrast Exam date and time: 03/05/2022 3:39 AM Age: 81 years old Clinical indication: Nausea and vomiting; Prior surgery; Surgery type: Gb; Patient HX: Persistent n/v with fever. ; Additional info: Vomiting abdominal pain TECHNIQUE: Imaging protocol: Computed tomography of the abdomen and pelvis without contrast. Radiation optimization: All CT scans at this facility use at least one of these dose optimization techniques: automated exposure control; mA and/or kV adjustment per patient size (includes targeted exams where dose is matched to clinical indication); or iterative reconstruction. COMPARISON: CT abdomen pelvis w con* [id number] 10/23/2019 6:15 PM RADIATION DOSE METRICS: Total DLP (mGy-cm): 2295.34 FINDINGS: Pleural spaces: There is a background of centrilobular emphysema, bronchiectasis and basilar pleural and parenchymal scarring or atelectasis. Diaphragm: There is a small hiatal hernia present. Liver: Normal. No mass. Gallbladder and bile ducts: Status post cholecystectomy. Pancreas: Normal. No ductal dilation. Spleen: Normal. No splenomegaly. Adrenal glands: Normal. No mass. Kidneys and ureters: Normal. No hydronephrosis. Stomach and bowel: Diverticula are present on the descending and sigmoid colon. There are no inflammatory changes seen to suggest diverticulitis. Appendix: The appendix is visualized and is normal in configuration. Intraperitoneal space: Unremarkable. No free air. No significant fluid collection. Vasculature: Unremarkable. No abdominal aortic aneurysm. Lymph nodes: Unremarkable. No enlarged lymph nodes. Urinary bladder: Unremarkable as visualized. Reproductive: Unremarkable as visualized. Bones/joints: Status post bipolar right hip replacement. Pedicle screws and posterior rods extend from L2-L4 bilaterally. There is a diffuse loss of disc height seen within the thoracolumbar spine compatible with degenerative disc disease. There is prominence of the common bile duct measuring 12.7 mm in its midportion remaining prominent within the pancreatic head measuring 10.6 mm without evidence of obstructing stones or extrinsic masses. Soft tissues: Unremarkable. CT/CT abdomen pelvis con [id number] IMPRESSION: 1. Small hiatal hernia 2. Prominent common bile duct measuring 12.7 mm in its midportion and 10.6 mm within the pancreatic head without evidence for choledocholithiasis or extrinsic masses. 3. Diverticulosis of the descending and sigmoid colon 4. There are no acute intra-abdominal findings.
--- NOTE | 2022-03-05 03:21 | XRR_ITS ---
PROCEDURE INFORMATION: Exam: XR Chest Exam date and time: 03/05/2022 3:25 AM Age: 81 years old Clinical indication: Fever; Additional info: Fever vomiting AMS TECHNIQUE: Imaging protocol: Radiologic exam of the chest. Views: 1 view. COMPARISON: CR XR chest 1V portable [id number] 01/16/2022 10:20 AM FINDINGS: Lungs: There is mild indistinctness of the pulmonary vasculature and some increased interstitial opacities are present bilaterally, findings could represent pulmonary edema. Superimposed bilateral interstitial pneumonitis cannot be entirely excluded. Pleural spaces: Unremarkable. No pleural effusion. No pneumothorax. Heart/Mediastinum: Unremarkable. No cardiomegaly. Vasculature: There is prominence of the aortic arch there appears stable compared with 01/16/2022. Bones/joints: Unremarkable. XR/XR chest 1V portable [id number] IMPRESSION: 1. Mild prominence and indistinctness of the pulmonary vasculature and bilateral interstitial opacities could represent pulmonary edema although a superimposed interstitial pneumonitis cannot be excluded.
[2022-03-05 03:33] LABS: Basophils # 0.1 10^3/uL (0.0-0.1); Basophils % 0.5 %; Eosinophils % 0.3 %; Hematocrit 44.1 % (37.0-47.0); Hemoglobin 14.7 g/dL (11.5-15.3); Lymphocytes # 1.2 10^3/uL (0.8-4.8); Mean Corpuscular HGB Conc 33.3 g/dL (30.0-36.0); Mean Corpuscular Hemoglobin 27.9 pg (28.0-34.0); Mean Corpuscular Volume 83.8 fl (81-99); Mean Platelet Volume 9.4 fL (7.4-10.4); Monocytes # 0.6 10^3/uL (0.2-0.9); Monocytes % 6.2 %; Neutrophils % 78.8 %; Nucleated Red Blood Cells % 0 %; Platelet Count 218 10^3/cmm (130-400); Red Blood Count 5.26 10^6/uL (4.1-5.3); Red Cell Distribution Width 14.5 % (12.1-15.1); White Blood Count 9.4 10^3/uL (4.0-10.0)
[2022-03-05 03:42] LABS: Alanine Aminotransferase 9 U/L (0-33); Albumin Level 4.5 g/dL (3.5-5.2); Alkaline Phosphatase 65 IU/L (35-105); Anion Gap 21.6 (5-19); Aspartate Amino Transferase 18 U/L (0-32); Blood Urea Nitrogen 15 mg/dL (8-23); Calcium 10.2 mg/dL (8.5-10.5); Carbon Dioxide 26 mmol/L (22-29); Chloride 99 mmol/L (98-107); Globulin 2.7 g/dL (1.3-4.6); Glucose 200 mg/dL (65-115); Lipase 6 U/L (13-60); Osmolality Calculated 302 mOsm/kg (285-295); Potassium 3.6 mmol/L (3.5-5.1); Sodium 143 mmol/L (136-145); Total Bilirubin 0.5 mg/dL (0.15-1.2); Total Protein 7.2 g/dL (6.6-8.7)
--- NOTE | 2022-03-05 04:25 | W.ED.NAVMDI ---
HPI - Nausea/Vomiting/Diarrhea General: Chief complaint: Nausea/Vomiting/Diarrhea Stated complaint: N/V Time Seen by Provider: 03/05/22 03:04 Source: patient History of Present Illness: 81-year-old female here with vomiting and diarrhea from a longterm. She may have had a low-grade fever as well. She is a bit of a poor historian. Evidently she was vomiting liquids there. She does not complain of significant belly pain, but notes that it is tender to touch after vomiting so much. No blood in the stool. MD elicited complaint: nausea, vomiting and diarrhea Onset (ago): day(s) (2) Description of vomiting: watery Description of diarrhea: watery Associated nausea: Yes Associated abdominal pain: Yes Location of pain: Diffuse Pain consistency: other Quality: cramping Exacerbating factors: vomiting Relieving factors: none Associated symtoms: Reports altered mental status (mild), anorexia and nausea; Denies chest pain, cough or short of breath Review of Systems Const: Reports: fever(s); Denies: chills Card: Denies: chest pain Resp: Denies: dyspnea, productive cough or non-productive cough GI: Reports: nausea PFS ED PFSH: Medical History (Updated 03/05/22 @ 06:23 by Jackson Feliz DO) Diabetes mellitus type 2, noninsulin dependent Fibromyalgia Hypertension Hypothyroidism Obstructive sleep apnea CPAP at home Surgical History History of back surgery History of bilateral knee replacement History of cholecystectomy History of right hip replacement History of shoulder surgery bilateral Family History Denies family history of CAD (coronary artery disease) Social History Smoking and tobacco status: never smoked Caregiver/support person: No Household members: none Physical Exam Const: EXAM LIMITATIONS: altered mental status (mild) GENERAL APPEARANCE: cooperative and lethargic (mildly) ORIENTATION/CONSCIOUSNESS: Yes lethargic (mildly) HENMT: COMMON NORMALS: normocephalic, atraumatic and Normal external nose present HEAD & SCALP: normocephalic and atraumatic NOSE: Normal external nose present Eye: COMMON NORMALS: Equal, round and reactive pupils present and EOMs intact bilaterally PUPIL: Yes Equal, round and reactive pupils present Neck/C-Spine: GENERAL: Yes trachea midline Chest: CHEST: Yes Symmetrical chest wall rise Resp: COMMON NORMALS: normal respiratory effort, No use of accessory muscles and clear to auscultation bilaterally AUSCULTATION: clear to auscultation bilaterally Cardio: COMMON NORMALS: regular rate and regular rhythm RATE: regular rate RHYTHM: regular rhythm GI: COMMON NORMALS: Soft to palpation INSPECTION: Yes normal to inspection PALPATION: Yes Soft to palpation, Yes Tenderness to palpation present (GI) (diffuse) and No Guarding due to palpation present (GI) Neuro: JEFFERSON COMA SCALE: document GCS findings [place] coma scale eye opening: Spontaneous [place] coma scale verbal response: Confused [place] coma scale motor response: Obey commands [place] coma scale total score: 14 SENSORIUM/ORIENTATION: Yes lethargic (mildly) Course Vital Signs: Vital signs: Vital Signs Temperature 98.6 F 03/05/22 07:05 Pulse Rate 86 03/05/22 07:05 Respiratory Rate 18 03/05/22 07:05 Blood Pressure 143/73 03/05/22 07:05 Pulse Oximetry 92 03/05/22 07:05 MDM - Nausea/Vomiting/Diarrhea Medical Decision Making Patient's vital signs are stable. Laboratory is benign. Sugar is 200. Liver enzymes are normal. CT of the belly shows a small hiatal hernia and a dilated common bile duct without evidence of obstruction. Her liver enzymes are normal indicating no biliary obstruction. No episodes of vomiting here. She has received fluid, and antiemetics. She will be allowed discharge back to the longterm on antiemetics Lab Data : 03/05/22 02:50 03/05/22 02:50 Radiology Impressions Abdomen/Pelvis CT 03/05/22 03:21 IMPRESSION: 1. Small hiatal hernia 2. Prominent common bile duct measuring 12.7 mm in its midportion and 10.6 mm within the pancreatic head without evidence for choledocholithiasis or extrinsic masses. 3. Diverticulosis of the descending and sigmoid colon 4. There are no acute intra-abdominal findings. Chest X-Ray 03/05/22 03:21 IMPRESSION: 1. Mild prominence and indistinctness of the pulmonary vasculature and bilateral interstitial opacities could represent pulmonary edema although a superimposed interstitial pneumonitis cannot be excluded. Laboratory Results WBC 9.4 10^3/uL (4.0-10.0) 03/05/22 02:50 RBC 5.26 10^6/uL (4.1-5.3) 03/05/22 02:50 Hgb 14.7 g/dL (11.5-15.3) 03/05/22 02:50 Hct 44.1 % (37.0-47.0) 03/05/22 02:50 MCV 83.8 fl (81-99) 03/05/22 02:50 MCH 27.9 pg (28.0-34.0) L 03/05/22 02:50 MCHC 33.3 g/dL (30.0-36.0) 03/05/22 02:50 RDW 14.5 % (12.1-15.1) 03/05/22 02:50 Plt Count 218 10^3/cmm (130-400) 03/05/22 02:50 MPV 9.4 fL (7.4-10.4) 03/05/22 02:50 Neut % (Auto) 78.8 % 03/05/22 02:50 Lymph % (Auto) 13.0 % 03/05/22 02:50 [place] % (Auto) 6.2 % 03/05/22 02:50 Eos % (Auto) 0.3 % 03/05/22 02:50 Baso % (Auto) 0.5 % 03/05/22 02:50 Neut # (Auto) 7.40 10^3/uL (1.8-7.7) 03/05/22 02:50 Lymph # (Auto) 1.2 10^3/uL (0.8-4.8) 03/05/22 02:50 [place] # (Auto) 0.6 10^3/uL (0.2-0.9) 03/05/22 02:50 Eos # (Auto) 0.0 10^3/uL (0.0-0.8) 03/05/22 02:50 Baso # (Auto) 0.1 10^3/uL (0.0-0.1) 03/05/22 02:50 Nucleated RBC % (auto) 0 % 03/05/22 02:50 Nucleated RBCs # 0.0 /100WBC 03/05/22 02:50 Sodium 143 mmol/L (136-145) 03/05/22 02:50 Potassium 3.6 mmol/L (3.5-5.1) 03/05/22 02:50 Chloride 99 mmol/L (98-107) 03/05/22 02:50 Carbon Dioxide 26 mmol/L (22-29) 03/05/22 02:50 Anion Gap 21.6 (5-19) H 03/05/22 02:50 BUN 15 mg/dL (8-23) 03/05/22 02:50 Creatinine 0.7 mg/dL (0.5-0.9) 03/05/22 02:50 GFR Calculation Not Reportable 03/05/22 02:50 Glucose 200 mg/dL (65-115) H 03/05/22 02:50 Calculated Osmolality 302 mOsm/kg (285-295) H 03/05/22 02:50 Calcium 10.2 mg/dL (8.5-10.5) 03/05/22 02:50 Total Bilirubin 0.5 mg/dL (0.15-1.2) 03/05/22 02:50 AST 18 U/L (0-32) 03/05/22 02:50 ALT 9 U/L (0-33) 03/05/22 02:50 Alkaline Phosphatase 65 IU/L (35-105) 03/05/22 02:50 Total Protein 7.2 g/dL (6.6-8.7) 03/05/22 02:50 Albumin 4.5 g/dL (3.5-5.2) 03/05/22 02:50 Globulin 2.7 g/dL (1.3-4.6) 03/05/22 02:50 Lipase 6 U/L (13-60) L 03/05/22 02:50 Urine Color Yellow (Yellow) 03/05/22 04:25 Urine Appearance Clear (CLEAR) 03/05/22 04:25 Urine pH 6 (5-7) 03/05/22 04:25 Ur Specific [place] 1.005 (1.005-1.030) 03/05/22 04:25 Urine Protein Neg (Negative) 03/05/22 04:25 Urine Glucose (UA) Norm (Normal) 03/05/22 04:25 Urine Ketones 3+ (Negative) H 03/05/22 04:25 Urine Blood 2+ (Negative) H 03/05/22 04:25 Urine Nitrate Negative (Negative) 03/05/22 04:25 Urine Bilirubin Neg (Negative) 03/05/22 04:25 Urine Urobilinogen Norm mg/dL (Negative) 03/05/22 04:25 Ur Leukocyte Esterase Negative (Negative) 03/05/22 04:25 Urine RBC 5-10 /hpf (0-2) H 03/05/22 04:25 Urine WBC 0-4 /hpf (0-5) H 03/05/22 04:25 Ur Squamous Epith Cells 0-4 /hpf (0-5) H 03/05/22 04:25 Amorphous Sediment Not Reportable 03/05/22 04:25 Urine Bacteria Trace /hpf (NONE) 03/05/22 04:25 Urine Mucus 1+ /hpf 03/05/22 04:25 SARS-CoV-2 Ag (Rapid) Negative (Negative) 03/05/22 04:51 Discharge Plan Discharge Patient Disposition: Home Clinical Impression: Gastroenteritis Condition: Stable Prescriptions: New ondansetron 4 mg film 4 mg PO DAILY PRN (Reason: nausea and vomiting) Qty: 10 0RF No Action oxycodone-acetaminophen 10-325 mg tablet 1 tab PO TID@09,12,21 0RF amlodipine 10 mg tablet 10 mg PO DAILY@0900 0RF gabapentin 300 mg capsule 900 mg PO BID 0RF ropinirole 0.25 mg tablet 0.25 mg PO BID@0900,2100 0RF glimepiride 4 mg tablet 6 mg PO DAILY@0900 0RF Vitamin D3 1 tab PO DAILY@0900 0RF magnesium 1 tab PO DAILY@0900 0RF vitamin B complex 1 tab PO DAILY@0900 0RF levothyroxine 50 mcg tablet 50 mcg PO DAILY@0800 0RF Discharge Orders: Discharge ED (Routine); Ordered 03/05/22 Ordered By: Jackson Feliz Referrals: Mar Cortez MD [Primary Care Provider] - 1-3 days Discharge Diet: Clear Liquid Patient Instructions: Gastroenteritis (ED) Activity Restrictions/Additional Instructions: Monitor for fever and treat accordingly. Use Zofran every 4 hours while awake for the next 24 hours, then as needed return for inability to control temperature, vomiting liquids or medications despite treatment, other concerning symptoms. Advance diet after 36 hours as tolerated. Coding Level of Care Code ED Armed Security Guard for Chg Fwd Exam Problem Focused
[2022-03-05 04:53] VITALS: BP 139/74; O2SAT 94
[2022-03-05 04:57] LABS: Add Urine Microscopic? YES; Bilirubin Urine Neg (Negative); Blood Urine 2+ (Negative); Glucose Urine UA Norm (Normal); Ketones Urine 3+ (Negative); Leukocyte Esterase Urine Negative (Negative); Nitrate Urine Negative (Negative); Protein Urine Neg (Negative); Specific Gravity, Urine 1.005 (1.005-1.030); Urine Appearance Clear (CLEAR); Urine Color Yellow (Yellow); Urobilinogen Urine Norm (Negative); pH Urine 6 (5-7)
[2022-03-05 04:58] LABS: Add Urine Culture? No; Bacteria Urine TRACE /hpf; Mucus Urine 1+ /hpf; Squamous Epithelial Cell Urine 0-4 /hpf (0-5); WBC Urine 0-4 /hpf (0-5)
[2022-03-05 05:12] LABS: SARS Covid-2 Antigen Negative (Negative)
[2022-03-05] MEDS: sodium chloride 0.9% 1,000 ML 999 ML IV (06:18)
[2022-03-05 06:19] VITALS: BP 143/73; PULSE 88; RESP 18
[2022-03-05 07:05] VITALS: BP 143/73; PULSE 86; RESP 18; TEMP 37; O2SAT 92
== END 2022-03-05 07:58 | disposition home or self-care (01) ==
PROVIDERS: Emergency Provider Emergency Medicine; PCP Family Medicine
DX: K52.9 Noninfective gastroenteritis and colitis, unspecified (principal); Z79.84 Long term (current) use of oral hypoglycemic drugs; E11.9 Type 2 diabetes mellitus without complications; I10 Essential (primary) hypertension; Z20.822 Contact with and (suspected) exposure to COVID-19
CPT/HCPCS: 71045; 74176; 80053; 81001; 83690; 85025; 87426; 99283; J7030

== ENCOUNTER 2022-04-29 18:59 | Emergency (ER) | payer MEDICARE, MEDICAID, SELFPAY ==
[2022-04-29 19:04] VITALS: BP 95/60; PULSE 62; RESP 22; TEMP 36.7; O2SAT 94; BMI 29.0
--- NOTE | 2022-04-29 19:08 | ECG_ITS ---
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 Measurements Intervals Kimberly Rate: 61 P: 12 AR: 171 QRS: 49 QRSD: 85 T: 56 QT: 401 QTc: 405 Interpretive Statements SINUS RHYTHM MODERATE ST DEPRESSION [0.05+ mV ST DEPRESSION] Compared to ECG 01/16/2022 10:08:05 ST (T wave) deviation now present Electronically Signed On 05-01-2022 8:01:16 CDT by Valerie Javier M.D. [id number] f
[2022-04-29 19:15] LABS: Glucose Point of Care 136 mg/dL (70-110)
--- NOTE | 2022-04-29 19:24 | XRR_ITS ---
PROCEDURE INFORMATION: Exam: XR Chest Exam date and time: 04/29/2022 7:38 PM Age: 81 years old Clinical indication: Other: Hypoxia; Patient HX: Limited HX due to PT conditon TECHNIQUE: Imaging protocol: Radiologic exam of the chest. Views: 1 view. COMPARISON: CR XR chest 1V portable [id number] 03/05/2022 3:25 AM FINDINGS: Lungs: There are hazy opacities at the lateral aspects of the lung bases similar to the prior study. Pleural spaces: Costophrenic angles are obscured and pleural effusions cannot be excluded. Heart/Mediastinum: Unremarkable. No cardiomegaly. Bones/joints: Severe degenerative changes extend across the glenohumeral and acromioclavicular joints. Humeral heads are abnormal in morphology, stable when compared to the prior study. XR/XR chest 1V portable [id number] IMPRESSION: Hazy opacities at the lateral aspects of the lung bases are stable when compared to the prior study and likely represent atelectasis and or scarring.
--- NOTE | 2022-04-29 19:24 | CTR_ITS ---
PROCEDURE INFORMATION: Exam: CT Head Without Contrast Exam date and time: 04/29/2022 7:57 PM Age: 81 years old Clinical indication: Altered mental status/memory loss; Patient HX: AMS; Additional info: Symptoms of acute stroke TECHNIQUE: Imaging protocol: Computed tomography of the head without contrast. Radiation optimization: All CT scans at this facility use at least one of these dose optimization techniques: automated exposure control; mA and/or kV adjustment per patient size (includes targeted exams where dose is matched to clinical indication); or iterative reconstruction. COMPARISON: CT head wo con* [id number] 01/16/2022 10:28 AM RADIATION DOSE METRICS: Total DLP (mGy-cm): 998.38 FINDINGS: Brain: Calcified plaque is present within the intracranial vasculature. There is diffuse cerebral atrophy present, consistent with this patient's age. Periventricular and subcortical white matter low densities are present which at this age likely represent microvascular ischemic change. 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 No evidence for large acute ischemic infarction. Please note acute ischemia can be occult by head CT. Benign globus pallidus calcifications are present. Cerebral ventricles: No ventriculomegaly. Paranasal sinuses: Visualized sinuses are unremarkable. No fluid levels. Mastoid air cells: Visualized mastoid air cells are well aerated. Bones/joints: Unremarkable. No acute fracture. Soft tissues: Unremarkable. CT/CT head wo con* [id number] IMPRESSION: There are senescent changes of the brain as described above. No evidence for large acute ischemic infarction or acute intracranial injury.
[2022-04-29 19:33] LABS: Basophils # 0.1 10^3/uL (0.0-0.1); Basophils % 0.9 %; Eosinophils # 0.5 10^3/uL (0.0-0.8); Eosinophils % 7.3 %; Hematocrit 38.2 % (37.0-47.0); Hemoglobin 11.9 g/dL (11.5-15.3); Lymphocytes # 1.9 10^3/uL (0.8-4.8); Lymphocytes % 28.5 %; Mean Corpuscular HGB Conc 31.2 g/dL (30.0-36.0); Mean Corpuscular Hemoglobin 28.3 pg (28.0-34.0); Mean Corpuscular Volume 90.7 fl (81-99); Mean Platelet Volume 9.3 fL (7.4-10.4); Monocytes # 0.6 10^3/uL (0.2-0.9); Monocytes % 9.1 %; Neutrophils # 3.64 10^3/uL (1.8-7.7); Neutrophils % 53.9 %; Nucleated Red Blood Cells % 0 %; Platelet Count 188 10^3/cmm (130-400); Red Blood Count 4.21 10^6/uL (4.1-5.3); White Blood Count 6.7 10^3/uL (4.0-10.0)
[2022-04-29 19:36] LABS: INR 1.07 (0.8-1.2)
[2022-04-29 19:37] LABS: Partial Thromboplastin Time 26.5 SECONDS (23.9-36.7)
[2022-04-29 19:49] LABS: Alanine Aminotransferase < 5 U/L (0-33); Albumin Level 3.8 g/dL (3.5-5.2); Alkaline Phosphatase 57 U/L (35-105); Anion Gap 17.7 (5-19); Aspartate Amino Transferase 12 U/L (0-32); Blood Urea Nitrogen 17 mg/dL (8-23); Calcium 9.3 mg/dL (8.5-10.5); Carbon Dioxide 26 mmol/L (22-29); Chloride 96 mmol/L (98-107); Globulin 2.1 g/dL (1.3-4.6); Glucose 144 mg/dL (65-115); Osmolality Calculated 284 mOsm/kg (285-295); Potassium 4.7 mmol/L (3.5-5.1); Sodium 135 mmol/L (136-145); Total Bilirubin 0.3 mg/dL (0.15-1.2); Total Protein 5.9 g/dL (6.6-8.7)
--- NOTE | 2022-04-29 20:42 | ED_ITS ---
HPI - Neuro Symptoms/Deficit General: Chief Complaint: Neuro Symptoms/Deficit Stated Complaint: POSSIBLE STROKE Time Seen by Provider: 04/29/22 19:12 Source: patient and EMS History of Present Illness: 81-year-old female with a history of TIAs she said. She is currently senior care patient. Evidently sometime around 30 minutes prior to arrival, senior care staff noticed that she was slurring her speech more than usual. She also was more drowsy than usual. There was no evidence of focal weakness evidently. EMS was called. They found her to have a low oxygen saturation, and applied some oxygen. Her mental status seemed to improve after this. She has no complaints except that she is tired, because she did not sleep well last night. Onset (ago): minute(s) (30 minutes) Timing confirmed by: caregiver Location: speech History of same: No Severity: mild Quality: other Relieving factors: none Exacerbating factors: none Context: gradual onset Associated symptoms: Deny chest pain, cough, diaphoresis, fevers/chills, headache(s), nausea, short of breath, vomiting or weakness Review of Systems Const: Denies: diaphoresis Card: Denies: chest pain GI: Denies: nausea or vomiting Neuro: Denies: headache(s) PFS ED PFSH: Medical History (Updated 04/29/22 @ 21:15 by Jackson Feliz DO) Diabetes mellitus type 2, noninsulin dependent Fibromyalgia Hypertension Hypothyroidism Obstructive sleep apnea CPAP at home Surgical History History of back surgery History of bilateral knee replacement History of cholecystectomy History of right hip replacement History of shoulder surgery bilateral Family History Denies family history of CAD (coronary artery disease) Social History Smoking and tobacco status: never smoked Caregiver/support person: No Household members: none NIH stroke score NIHSS: Level Of Consciousness - 1a: 0 Level Of Consciousness Questions - 1b: Both Correct Level Of Consciousness Commands - 1c: Both Correct Best Gaze - 2: Normal Visual [place] - 3: No Visual Loss Facial Palsy - 4: Normal Motor Arm Right - 5: No Drift Motor Arm Left - 5: No Drift Motor Leg Right - 6: No Drift Motor Leg Left - 6: No Drift Limb Ataxia - 7: Absent Sensory - 8: Normal Best Language - 9: No Aphasia Dysarthia - 10: Mild/Moderate Dysarthia Extinction And Inattention - 11: 0 Score: Total Score: 1 Physical Exam Const: COMMON NORMALS: no acute distress and alert GENERAL APPEARANCE: cooperative and frail appearing HENMT: COMMON NORMALS: normocephalic, atraumatic and Normal external nose present HEAD & SCALP: normocephalic and atraumatic FACE & SINUS: normal facial exam NOSE: Normal external nose present Eye: COMMON NORMALS: Equal, round and reactive pupils present and EOMs intact bilaterally PUPIL: Yes Equal, round and reactive pupils present Chest: COMMONS NORMALS: normal inspection of the chest Resp: COMMON NORMALS: normal respiratory effort, No use of accessory muscles and clear to auscultation bilaterally AUSCULTATION: clear to auscultation bilaterally Cardio: COMMON NORMALS: regular rate and regular rhythm RATE: regular rate RHYTHM: regular rhythm GI: COMMON NORMALS: Normal to inspection, nondistended, normoactive bowel sounds present and Soft to palpation PALPATION: Yes Soft to palpation Extremity: NARRATIVE EXTREMITY EXAM: Bilateral shoulder glenohumeral tenderness. Neuro: JEFFERSON COMA SCALE: document GCS findings [place] coma scale eye opening: Spontaneous [place] coma scale verbal response: Orientated [place] coma scale motor response: Obey commands [place] coma scale total score: 15 SENSORIUM/ORIENTATION: Yes alert CRANIAL NERVES: Yes CN normal except as noted COORDINATION/BALANCE: [id number] test normal SENSORY EXAM: Yes extremities MOTOR EXAM: Pronator motor function not present COORDINATION: [id number] test normal Psych: COMMON NORMALS: mental status grossly normal and cooperative Course Vital Signs: Vital signs: Vital Signs Temperature 98.0 F 04/29/22 19:04 Pulse Rate 62 04/29/22 19:04 Respiratory Rate 22 H 04/29/22 19:04 Blood Pressure 95/60 04/29/22 19:04 Pulse Oximetry 94 04/29/22 19:04 Oxygen Delivery Me thod 04/29/22 19:04 MDM - Neuro Symptoms/Deficit Medical Decision Making Patient gets an NIH scale of 1 for mild dysarthria although this may be normal and chronic for her. She is mildly hypoxic here, improved significantly on 2 L with a saturation 95%. She is sinus at 72 on the monitor blood pressure is 95/60. Chest x-ray shows chronic bibasilar atelectasis. White count is 6.7. She is afebrile. Hemoglobin is 12. BMP is essentially normal. Suspect mild hypoxia with combination of being tired as her culprit this evening. She will go back on oxygen. Lab Data : 04/29/22 19:20 04/29/22 19:20 Radiology Impressions Chest X-Ray 04/29/22: IMPRESSION: Hazy opacities at the lateral aspects of the lung bases are stable when compared to the prior study and likely represent atelectasis and or scarring. Head CT 04/29/22: IMPRESSION: There are senescent changes of the brain as described above. No evidence for large acute ischemic infarction or acute intracranial injury. Laboratory Results WBC 6.7 10^3/uL (4.0-10.0) 04/29/22 19: RBC 4.21 10^6/uL (4.1-5.3) 04/29/22 19: Hgb 11.9 g/dL (11.5-15.3) 04/29/22 19: Hct 38.2 % (37.0-47.0) 04/29/22 19: MCV 90.7 fl (81-99) 04/29/22 19: MCH 28.3 pg (28.0-34.0) 04/29/22 19: MCHC 31.2 g/dL (30.0-36.0) 04/29/22: RDW 15.0 % (12.1-15.1) 04/29/22 19: Plt Count 188 10^3/cmm (130-400) 04/29/22 19:20 MPV 9.3 fL (7.4-10.4) 04/29/22 19: Neut % (Auto) 53.9 % 04/29/22 19: Lymph % (Auto) 28.5 % 04/29/22 19:20 [place] % (Auto) 9.1 % 04/29/22 19:20 Eos % (Auto) 7.3 % 04/29/22 19:20 Baso % (Auto) 0.9 % 04/29/22: Neut # (Auto) 3.64 10^3/uL (1.8-7.7) 04/29/22 19:20 Lymph # (Auto) 1.9 10^3/uL (0.8-4.8) 04/29/22 19:20 [place] # (Auto) 0.6 10^3/uL (0.2-0.9) 04/29/22 19:20 Eos # (Auto) 0.5 10^3/uL (0.0-0.8) 04/29/22 19:20 Baso # (Auto) 0.1 10^3/uL (0.0-0.1) 04/29/22 19:20 Nucleated RBC % (auto) 0 % 04/29/22 19:20 Nucleated RBCs # 0.0 /100WBC 04/29/22 19:20 PT 14.20 SECONDS (12.1-14.9) 04/29/22 19:20 INR 1.07 (0.8-1.2) 04/29/22 19:20 APTT 26.5 SECONDS (23.9-36.7) 04/29/22 19:20 Sodium 135 mmol/L (136-145) L 04/29/22 19:20 Potassium 4.7 mmol/L (3.5-5.1) 04/29/22 19:20 Chloride 96 mmol/L (98-107) L 04/29/22 19:20 Carbon Dioxide 26 mmol/L (22-29) 04/29/22 19:20 Anion Gap 17.7 (5-19) 04/29/22 19:20 BUN 17 mg/dL (8-23) 04/29/22 19:20 Creatinine 0.9 mg/dL (0.5-0.9) 04/29/22 19:20 GFR Calculation Not Reportable 04/29/22 19:20 Glucose 144 mg/dL (65-115) H 04/29/22 19:20 POC Glucose 136 mg/dL (70-110) H 04/29/22 19:09 Calculated Osmolality 284 mOsm/kg (285-295) L 04/29/22 19:20 Calcium 9.3 mg/dL (8.5-10.5) 04/29/22 19:20 Total Bilirubin 0.3 mg/dL (0.15-1.2) 04/29/22 19:20 AST 12 U/L (0-32) 04/29/22 19:20 ALT < 5 U/L (0-33) 04/29/22 19:20 Alkaline Phosphatase 57 U/L (35-105) 04/29/22 19:20 Total Protein 5.9 g/dL (6.6-8.7) L 04/29/22 19:20 Albumin 3.8 g/dL (3.5-5.2) 04/29/22 19:20 Globulin 2.1 g/dL (1.3-4.6) 04/29/22 19:20 Discharge Plan Discharge Patient Disposition: Home Clinical Impression: Acute alteration in mental status Condition: Stable Prescriptions: No Action oxycodone-acetaminophen 10-325 mg tablet 1 tab PO TID@,, amlodipine 10 mg tablet 10 mg PO DAILY@0900 gabapentin 300 mg capsule 900 mg PO BID ropinirole 0.25 mg tablet 0.25 mg PO BID@0900,2100 glimepiride 4 mg tablet 6 mg PO DAILY@0900 Vitamin D3 1 tab PO DAILY@0900 magnesium 1 tab PO DAILY@0900 vitamin B complex 1 tab PO DAILY@0900 levothyroxine 50 mcg tablet 50 mcg PO DAILY@0800 ondansetron 4 mg film 4 mg PO DAILY PRN (Reason: nausea and vomiting) Qty: 10 0RF Discharge Orders: Discharge ED (Routine); Ordered 04/29/22 Ordered By: Jackson Feliz Referrals: Mar Cortez MD [Primary Care Provider] - 1-3 days Patient Instructions: Altered Mental Status (ED) Activity Restrictions/Additional Instructions: Drowsiness with speech problems seem to be improved at this point. Mild decrease oxygen was noted. We suggest 2 L of oxygen at baseline with frequent pulse ox checks for the next 48 hours. If oxygen level is staying up, trial off of oxygen is acceptable. Return for any worsening symptoms. Coding Level of Care Code ED Cheese Sprayer for Benson Shannon
== END 2022-04-29 22:11 | disposition home or self-care (01) ==
PROVIDERS: Emergency Provider Emergency Medicine; PCP Family Medicine
DX: R41.82 Altered mental status, unspecified (principal); Z79.84 Long term (current) use of oral hypoglycemic drugs; E11.9 Type 2 diabetes mellitus without complications; I10 Essential (primary) hypertension
CPT/HCPCS: 36416; 70450; 71045; 80053; 82962; 85025; 85610; 85730; 93005; 99285

== ENCOUNTER 2022-05-26 06:58 | Outpatient (CLI) | payer MEDICARE, MEDICAID, SELFPAY ==
--- NOTE | 2022-05-26 07:30 | CT_ITS ---
WS: [id number] CTA THORACIC TECHNIQUE: Contrast enhanced CTA of the thoracic aorta with coronal and sagittal reformatted images a nd maximum intensity projection (MIP) images. CLINICAL INFORMATION: thoracic aortic aneurysm COMPARISON: CTA January 31, 2021 DLP: 1111.[address] scans at [facility] use at least one of these dose optimization techniques: automated e xposure control; mA and/or kV adjustment per patient size (includes targeted exams where dose is matc hed to clinical indication); or iterative reconstruction. FINDINGS: Proximal main pulmonary arteries are normal. Bilateral diffuse filling defects involving segmental an d subsegmental pulmonary arteries bilaterally compatible with acute pulmonary embolus. This is worse in the proximal segmental pulmonary arteries bilaterally. Slight bibasilar atelectasis. No focal pneumonia or pleural fluid. Aneurysmal ascending thoracic a asaf measuring 4.1 cm unchanged. Normal descending thoracic aorta and aortic arch. Celiac and SMA are patent. Incidental bovine arch. Cholecystectomy clips. Small esophageal hernia. Splenic artery calcification. Adrenal glands are norm al. Fatty atrophy of the pancreas. Moderate thoracic kyphosis. Hypertrophic changes thoracic spine. Partially visualized postoperative changes lumbar spine. Degener ative arthritis both glenohumeral joints. No mediastinal or hilar lymphadenopathy. Coronary calcifica tion. CT/CT angio chest [id number] IMPRESSION: 1. Proximal main pulmonary arteries are normal. Diffuse segmental and subsegme ntal acute-appearing pulmonary emboli throughout both lungs worse in the proxim al segmental pulmonary arteries bilaterally. 2. Stable ascending thoracic aortic aneurysm measuring 4.1 CM. 3. Slight atelectasis in the lung bases. Dr. Garcia out of office. Discussed results with Dr. Ramirez's nurseDeborah 2 2:09 PM. Radiology staff contacted the [facility] and spoke to Marianne Cintron where patient is a resident. [facility] was instructed that patient had pulm onary emboli on today's CTA and patient should be transported to the ER for fur ther evaluation. Emergency room was notified. 05/26/2022 2:28 PM
[2022-05-26] MEDS: iohexol 350 mg/mL 100 mL Btl IV (08:49)
== END 2022-05-26 06:59 | disposition home or self-care (01) ==
LOC: RAD 06:59
PROVIDERS: PCP Family Medicine; Visit Provider Thoracic Surgery (Cardiothoracic Vascular Surgery)
DX: I71.2 Thoracic aortic aneurysm, without rupture (principal); J98.11 Atelectasis
CPT/HCPCS: 71275

== ENCOUNTER 2022-05-26 15:04 | Observation (INO) | payer MEDICARE, MEDICAID, SELFPAY ==
--- NOTE | 2022-05-26 15:11 | XR_ITS ---
WS: [id number] XR chest 1V portable [id number] REASON FOR EXAM: cp FINDINGS: Chest is unchanged compared to 04/29/2022. Moderate ectasia and tortuosity the thoracic aorta with mild cardiomegaly. Coarse reticular interstitial changes diffusely throughout both lungs. Significant changes of degenerative spondylosis in the mid and lower thoracic spine. Severe degenerat melvi arthropathic change in both shoulders. XR/XR chest 1V portable [id number] IMPRESSION: Stable abnormal chest with no acute abnormality as above.
[2022-05-26 15:18] VITALS: BP 80/61; PULSE 94; RESP 14; TEMP 36.6; O2SAT 92; BMI 29.5
--- NOTE | 2022-05-26 15:18 | W.ED.SOB ---
HPI - SOB/Dyspnea General: Chief Complaint: Recheck/Abnormal Lab/Rx Stated Complaint: PULMONARY EMBOLISM Time Seen by Provider: 05/26/22 15:07 Source: patient and EMS Mode of arrival: EMS Limitations: no limitations History of Present Illness: HPI Narrative: 81-year-old female is here from a skilled nursing she states she been having some chest pain shortness of breath for quite some time she does have a history of an aneurysm was followed by Dr. Garcia she had an outpatient CT angiogram today that showed distal pulmonary emboli she states that rest currently she has no pain or shortness of breath denies any fever denies any cough states that she does have some exertional symptoms at times. Associated symptoms: Reports chest pain; Deny abdominal pain, fever(s), nausea or vomiting Review of Systems Const: Denies: fever(s), chills, body aches or change in appetite Eyes: Denies: blurry vision or eye discomfort ENMT: Denies: throat pain or dental pain Card: Reports: chest pain Resp: Reports: dyspnea GI: Denies: abdominal pain, nausea, vomiting or diarrhea : Denies: dysuria Musc: Denies: neck pain or back pain Skin/Breast: Denies: rash Neuro: Denies: headache(s) Psych: Denies: depression Niall/Lymph: Denies: easy bruising All/Imm: Denies: urticaria PFSH ED PFSH: Medical History (Updated 05/26/22 @ 17:15 by Reyes Santos MD) Diabetes mellitus type 2, noninsulin dependent Fibromyalgia Hypertension Hypothyroidism Obstructive sleep apnea CPAP at home Surgical History History of back surgery History of bilateral knee replacement History of cholecystectomy History of right hip replacement History of shoulder surgery bilateral Family History Denies family history of CAD (coronary artery disease) Social History Smoking and tobacco status: never smoked Caregiver/support person: No Household members: none Physical Exam Const: COMMON NORMALS: no acute distress, patient oriented x3 and healthy appearing HENMT: COMMON NORMALS: normocephalic and atraumatic HEAD & SCALP: normocephalic and atraumatic Eye: COMMON NORMALS: Equal, round and reactive pupils present and EOMs intact bilaterally PUPIL: Yes Equal, round and reactive pupils present Neck/C-Spine: COMMON NORMALS: full ROM and supple Chest: COMMONS NORMALS: normal inspection of the chest and normal palpation of entire chest wall Resp: COMMON NORMALS: normal respiratory effort, No retractions, No use of accessory muscles and clear to auscultation bilaterally AUSCULTATION: clear to auscultation bilaterally Cardio: COMMON NORMALS: regular rate, regular rhythm and No murmurs present (Cardio) RATE: regular rate RHYTHM: regular rhythm GI: COMMON NORMALS: Normal to inspection, nondistended, normoactive bowel sounds present, Soft to palpation, non-tender and no masses PALPATION: Yes Soft to palpation Extremity: COMMON NORMALS: normal to inspection and full ROM Neuro: COMMON NORMALS: patient oriented x3, moves all extremities and no focal motor deficits Psych: COMMON NORMALS: mental status grossly normal, Normal thought process present and cooperative THOUGHT PROCESS: Normal thought process present Skin: COMMON NORMALS: no rashes or lesions noted and no wounds GENERAL SKIN EXAM: no rashes or lesions noted Course Vital Signs: Vital signs: Vital Signs Temperature 98 F 05/26/22 15:18 Pulse Rate 94 05/26/22 15:18 Respiratory Rate 14 05/26/22 15:18 Blood Pressure 80/61 05/26/22 15:18 Pulse Oximetry 92 05/26/22 15:18 Oxygen Delivery Me thod 05/26/22 15:18 MDM - SOB/Dyspnea Medical Decision Making Patient presented here with CT from outpatient showed pulmonary emboli patient has no signs of heart strain she has symptoms with exertion but none at rest she was hypotensive here she appears dehydrated she does have an elevated lactate she has no signs of infection she has no white count or fever will check blood cultures patient's blood pressure here is improving after IV fluids her elevated lactate and blood pressure could be due to dehydration I do not believe she is hypotensive from her PE she has no signs of saddle PE or heart strain. Patient did not is given Lovenox here spoke to hospitalist will admit at this time. Lab Data : 05/26/22 15:40 05/26/22 15:40 Labs/Radiology: Radiology Impressions Chest X-Ray 05/26/22 15:11 IMPRESSION: Stable abnormal chest with no acute abnormality as above. Laboratory Results WBC 7.2 10^3/uL (4.0-10.0) 05/26/22 15:40 RBC 4.33 10^6/uL (4.1-5.3) 05/26/22 15:40 Hgb 12.4 g/dL (11.5-15.3) 05/26/22 15:40 Hct 40.1 % (37.0-47.0) 05/26/22 15:40 MCV 92.6 fl (81-99) 05/26/22 15:40 MCH 28.6 pg (28.0-34.0) 05/26/22 15:40 MCHC 30.9 g/dL (30.0-36.0) 05/26/22 15:40 RDW 14.8 % (12.1-15.1) 05/26/22 15:40 Plt Count 166 10^3/cmm (130-400) 05/26/22 15:40 MPV 9.3 fL (7.4-10.4) 05/26/22 15:40 Neut % (Auto) 60.3 % 05/26/22 15:40 Lymph % (Auto) 21.7 % 05/26/22 15:40 [place] % (Auto) 8.9 % 05/26/22 15:40 Eos % (Auto) 7.9 % 05/26/22 15:40 Baso % (Auto) 0.8 % 05/26/22 15:40 Neut # (Auto) 4.32 10^3/uL (1.8-7.7) 05/26/22 15:40 Lymph # (Auto) 1.6 10^3/uL (0.8-4.8) 05/26/22 15:40 [place] # (Auto) 0.6 10^3/uL (0.2-0.9) 05/26/22 15:40 Eos # (Auto) 0.6 10^3/uL (0.0-0.8) 05/26/22 15:40 Baso # (Auto) 0.1 10^3/uL (0.0-0.1) 05/26/22 15:40 Nucleated RBC % (auto) 0 % 05/26/22 15:40 Nucleated RBCs # 0.0 /100WBC 05/26/22 15:40 Sodium 137 mmol/L (136-145) 05/26/22 15:40 Potassium 4.5 mmol/L (3.5-5.1) 05/26/22 15:40 Chloride 97 mmol/L (98-107) L 05/26/22 15:40 Carbon Dioxide 23 mmol/L (22-29) 05/26/22 15:40 Anion Gap 21.5 (5-19) H 05/26/22 15:40 BUN 18 mg/dL (8-23) 05/26/22 15:40 Creatinine 0.9 mg/dL (0.5-0.9) 05/26/22 15:40 GFR Calculation Not Reportable 05/26/22 15:40 Glucose 152 mg/dL (65-115) H 05/26/22 15:40 Calculated Osmolality 289 mOsm/kg (285-295) 05/26/22 15:40 Lactate 7.6 mmol/L (0.5-2.2) H* 05/26/22 15:40 Calcium 9.5 mg/dL (8.5-10.5) 05/26/22 15:40 Total Bilirubin 0.2 mg/dL (0.15-1.2) 05/26/22 15:40 AST 10 U/L (0-32) 05/26/22 15:40 ALT < 5 U/L (0-33) 05/26/22 15:40 Alkaline Phosphatase 47 U/L (35-105) 05/26/22 15:40 Troponin T Baseline 48 ng/L (0-10) H 05/26/22 15:40 Total Protein 6.0 g/dL (6.6-8.7) L 05/26/22 15:40 Albumin 3.5 g/dL (3.5-5.2) 05/26/22 15:40 Globulin 2.5 g/dL (1.3-4.6) 05/26/22 15:40 EKG Data EKG 1: I personally reviewed and interpreted this EKG as follows: EKG Interpretation Date: 05/26/22 EKG interpretation time: 15:40 Interpretation: nsr hr [address] or t wave abnormalities qrs 87 qtc 395 Critical Care Time Critical Care Time: Critical Care Time: Yes Total Critical Care Time: 40 Attestation: The high probability of a clinically significant, sudden or life threatening deterioration of the patient's cv system(s) required my full and direct attention, intervention and personal management. The critical care time is as shown. This time is in addition to time spent performing any reported procedures but includes the following: [x] Data and vital sign review and interpretation [x] Patient assessment, examination and intervention [x] Documentation [x] Medication orders and management Discharge Plan Discharge Patient Disposition: Admitted As Inpatient Clinical Impression: Pulmonary emboli, Dehydration, Hypotension, Elevated lactic acid level Condition: Stable Coding Level of Care Code ED Balance Bridge Inspector for Benson Fwanurag Exam Comprehensive
[2022-05-26 15:23] VITALS: BP 77/54; PULSE 80; RESP 17; O2SAT 92
--- NOTE | 2022-05-26 15:40 | ECG_ITS ---
[facility] Test Date: 2022-05-26 Pat Name: Meghna Crespo Department: Room: Gender: Female Master Scheduler: : 1940 Requested By: Reyes Santos Order Number: [id number] Ramandeep MD: Valerie Javier M.D. Measurements Intervals [place] Rate: 80 P: 45 GA: 163 QRS: 49 QRSD: 87 T: 54 QT: 358 QTc: 415 Interpretive Statements SINUS RHYTHM Compared to ECG 04/29/2022 19:08:21 ST (T wave) deviation no longer present Electronically Signed On 05-27-2022 8:35:31 CDT by Valerie Javier M.D. [id number]
[2022-05-26] MEDS: sodium chloride 0.9% 500 ML 999 ML IV (15:43)
--- NOTE | 2022-05-26 15:45 | PC.NURSE ---
PT PLACED ON CONTINUOUS NIBP, PSO2, AND CM
[2022-05-26 15:48] LABS: Basophils # 0.1 10^3/uL (0.0-0.1); Basophils % 0.8 %; Eosinophils # 0.6 10^3/uL (0.0-0.8); Eosinophils % 7.9 %; Hematocrit 40.1 % (37.0-47.0); Hemoglobin 12.4 g/dL (11.5-15.3); Lymphocytes # 1.6 10^3/uL (0.8-4.8); Lymphocytes % 21.7 %; Mean Corpuscular HGB Conc 30.9 g/dL (30.0-36.0); Mean Corpuscular Hemoglobin 28.6 pg (28.0-34.0); Mean Corpuscular Volume 92.6 fl (81-99); Mean Platelet Volume 9.3 fL (7.4-10.4); Monocytes # 0.6 10^3/uL (0.2-0.9); Monocytes % 8.9 %; Neutrophils # 4.32 10^3/uL (1.8-7.7); Neutrophils % 60.3 %; Nucleated Red Blood Cells % 0 %; Platelet Count 166 10^3/cmm (130-400); Red Blood Count 4.33 10^6/uL (4.1-5.3); Red Cell Distribution Width 14.8 % (12.1-15.1); White Blood Count 7.2 10^3/uL (4.0-10.0)
[2022-05-26 16:05] LABS: Troponin(5th) Baseline 48 ng/L (0-10)
[2022-05-26 16:07] LABS: Alanine Aminotransferase < 5 U/L (0-33); Albumin Level 3.5 g/dL (3.5-5.2); Alkaline Phosphatase 47 U/L (35-105); Anion Gap 21.5 (5-19); Aspartate Amino Transferase 10 U/L (0-32); Blood Urea Nitrogen 18 mg/dL (8-23); Calcium 9.5 mg/dL (8.5-10.5); Carbon Dioxide 23 mmol/L (22-29); Chloride 97 mmol/L (98-107); Globulin 2.5 g/dL (1.3-4.6); Glucose 152 mg/dL (65-115); Osmolality Calculated 289 mOsm/kg (285-295); Potassium 4.5 mmol/L (3.5-5.1); Sodium 137 mmol/L (136-145); Total Bilirubin 0.2 mg/dL (0.15-1.2)
[2022-05-26 16:13] LABS: Lactate (Lactic Acid level) 7.6 mmol/L (0.5-2.2)
[2022-05-26 16:23] VITALS: BP 105/58; PULSE 77; RESP 18; O2SAT 96
[2022-05-26] MEDS: sodium chloride 0.9% 1,000 ML 999 ML IV ×2 (16:36→17:27)
--- NOTE | 2022-05-26 16:51 | CTR_ITS ---
PROCEDURE INFORMATION: Exam: CT Abdomen And Pelvis Without Contrast Exam date and time: 05/26/2022 5:12 PM Age: 81 years old Clinical indication: Abdominal pain; Generalized; Additional info: Abd pain TECHNIQUE: Imaging protocol: Computed tomography of the abdomen and pelvis without contrast. Radiation optimization: All CT scans at this facility use at least one of these dose optimization techniques: automated exposure control; mA and/or kV adjustment per patient size (includes targeted exams where dose is matched to clinical indication); or iterative reconstruction. COMPARISON: CT abdomen pelvis con [id number] 03/05/2022 3:39 AM RADIATION DOSE METRICS: Total DLP (mGy-cm): 211 FINDINGS: Limitations: The absence of intravenous contrast lessens the sensitivity of this study for solid organ abnormalities. There is contrast excretion by the kidneys which is presumably from CT angiogram of the chest done earlier today. Study somewhat limited due to streak artifact created by the patient being scanned with the arms at the sides. Tubes, catheters and devices: There is right hip replacement with prosthetic components in anatomic alignment not significantly changed. Lungs: There is some mild dependent atelectasis at the lung bases. Liver: There is no focal abnormality within the liver. Gallbladder and bile ducts: There has been a cholecystectomy. Pancreas: Pancreas is atrophic but otherwise unremarkable. Spleen: The spleen is normal. Adrenal glands: The adrenal glands are normal. Kidneys and ureters: The kidneys are normal. There is no evidence of hydronephrosis. Stomach and bowel: There is no evidence of colitis/diverticulitis. There is no evidence of intestinal obstruction. Appendix: A normal appendix is identified. Intraperitoneal space: There is no evidence of free intraperitoneal fluid. Vasculature: The aorta demonstrates mild atherosclerotic calcification. Lymph nodes: There is no evidence of lymphadenopathy. Urinary bladder: Unremarkable as visualized. Reproductive: There has been a hysterectomy. Bones/joints: There is PLIF L2-L4 not significantly changed. Degenerative changes throughout the lumbar spine are stable. No acute fracture is demonstrated. Soft tissues: There is left inguinal hernia containing only fat CT/CT abdomen pelvis wo con [id number] IMPRESSION: No acute findings.
[2022-05-26 17:23] VITALS: BP 116/68; PULSE 79; RESP 17; O2SAT 94
--- NOTE | 2022-05-26 17:28 | ECG_ITS ---
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 Measurements Intervals [place] Rate: 80 P: 56 MA: 181 QRS: 46 QRSD: 82 T: 47 QT: 358 QTc: 413 Interpretive Statements SINUS RHYTHM Compared to ECG 05/26/2022 15:40:45 No significant changes Electronically Signed On 05-27-2022 8:39:49 CDT by Valerie Javier M.D. [id number]
[2022-05-26] MEDS: enoxaparin 80 mg/0.8 mL Syringe SUBCUT (18:04)
--- NOTE | 2022-05-26 18:37 | PM.HP ---
Providers/Chief Complaint Primary Care Provider: Mar Cortez MD Chief Complaint: PULMONARY EMBOLISM History of Present Illness Meghna Crespo is a 81 year old female with PMH of HTN, DM2 , Hypothroidsim , MORENO, Fibromyalgia, came in with c/o mild chest pain as well as sob she denied any fever, cough, nausea, vomiting.On arrival in the ER she was found to be hypotensive with elevated lactic acid.Hypotension was fluid responsive. Upon arrival in the ER She was worked up for above mention complain. Pertinent Imaging studies : CTA Chest : Bilateral diffuse filling defects involving segmental and subsegmental pulmonary arteries bilaterally compatible with acute pulmonary embolus. This is worse in the proximal segmental pulmonary arteries bilaterally.Stable ascending thoracic aortic aneurysm measuring 4.[address] abdomen pelvis wo con:No acute pathology EKG: S/R with no acute ST-T Waves changes. Pertinent Labs : WBC: 7.2 H&H :12/40 PLT : 166 Na : 137 K : 4.5 BUN/SCR : 18/0.9 Lactic Acid : 7.6 ---> 6 Troponin: 48-39 Urine analysis : WBC: 10-15 Bacteria: 3+ Leukocyte esterase : 2+ Review of Systems General: Reports: 10 or more systems reviewed and unremarkable except in HPI and below Const: Denies: fever(s), chills, body aches, change in appetite or diaphoresis Card: Denies: palpitations, edema, swelling of feet/ankles, dyspnea on exertion, orthopnea or leg pain with exertion Resp: Denies: dyspnea, productive cough, wheezing or pain on inspiration GI: Denies: abdominal pain, nausea, vomiting, diarrhea or constipation : Denies: flank pain Musc: Denies: back pain, extremity pain or extremity swelling Neuro: Denies: headache(s), difficulty walking or confusion Medications/Allergies Home Medications Medication Instructions Recorded Confirmed Last Taken Type gabapentin 300 mg capsule 900 mg PO BID 10/24/19 05/26/22 05/26/22 History oxycodone-acetaminophen 10 mg-325 1 tab PO TID@,,10/24/19 05/26/22 05/26/22 History mg tablet levothyroxine 50 mcg tablet 50 mcg PO DAILY@0800 12/31/20 05/26/22 05/26/22 History ropinirole 0.25 mg tablet 0.25 mg PO BID@00,2100 12/31/20 05/26/22 05/26/22 History bisacodyl 10 mg rectal suppository 10 mg [place] DAILY PRN Constipation 05/26/22 05/26/22 Unknown History docusate sodium 100 mg tablet 200 mg PO DAILY 05/26/22 05/26/22 05/26/22 History fluticasone propionate 50 2 spray intranasal DAILY 05/26/22 05/26/22 05/26/22 History mcg/actuation nasal spray,suspension magnesium hydroxide 400 mg/5 mL 30 ml PO DAILY PRN Constipation 05/26/22 05/26/22 Unknown History oral suspension (Milk of Magnesia) metformin 1,000 mg tablet 1,000 mg PO BID 05/26/22 05/26/22 05/26/22 History polyethylene glycol 3350 17 4 g PO DAILY 05/26/22 05/26/22 05/26/22 History gram/dose oral powder (Miralax) pseudoephedrine HCl 30 mg tablet 30 mg PO Q6H PRN Congestion 05/26/22 05/26/22 Unknown History (Sudogest) quetiapine 25 mg tablet (Seroquel) 25 mg PO DAILY 05/26/22 05/26/22 05/26/22 History quetiapine 50 mg tablet (Seroquel) 50 mg PO QPM 05/26/22 05/26/22 05/25/22 History sertraline 100 mg tablet 100 mg PO DAILY 05/26/22 05/26/22 05/26/22 History sodium phosphates 19 gram-7 118 ml [place] DAILY PRN Constipation 05/26/22 05/26/22 Unknown History gram/118 mL enema (Fleet Enema) tizanidine 4 mg tablet 4 mg PO Q8H PRN Muscle Spasm 05/26/22 05/26/22 05/26/22 History Allergies Allergy/AdvReac Type Severity Reaction Status Date / Time bee venom protein (honey bee) Allergy Unknown Verified 05/26/22 16:19 duloxetine [From Cymbalta] Allergy Unknown Verified 05/26/22 16:19 fentanyl Allergy Unknown Verified 05/26/22 16:19 hyoscyamine Allergy Unknown Verified 05/26/22 16:19 levofloxacin [From Levaquin] Allergy Unknown Verified 05/26/22 16:19 meperidine [From Demerol] Allergy Unknown Verified 05/26/22 16:19 metronidazole Allergy Unknown Verified 05/26/22 16:19 morphine Allergy Unknown Verified 05/26/22 16:19 prednisone Allergy Unknown Verified 05/26/22 16:19 quinine Allergy Unknown Verified 05/26/22 16:19 PFSH Acute PFSH: Medical History (Updated 05/26/22 @ 17:15 by Reyes Santos MD) Diabetes mellitus type 2, noninsulin dependent Fibromyalgia Hypertension Hypothyroidism Obstructive sleep apnea CPAP at home Surgical History History of back surgery History of bilateral knee replacement History of cholecystectomy History of right hip replacement History of shoulder surgery bilateral Family History Denies family history of CAD (coronary artery disease) Social History Smoking and tobacco status: never smoked Caregiver/support person: No Household members: none Vitals/I&O/Wt Last Vital Signs Temp 98 F 05/26/22 15:18 Pulse 79 05/26/22 17:23 Resp 17 05/26/22 17:23 BP 116/68 05/26/22 17:23 Pulse Ox 94 05/26/22 17:23 O2 Del Method 05/26/22 15:23 05/26/22 05/26/22 05/26/22 06:59 14:59 22:59 Intake Total 1500 / 1500 Balance 1500 / 1500 Weight last 48 hrs Weight 83.007 kg Physical Exam Const: COMMON NORMALS: patient oriented x3 Resp: COMMON NORMALS: normal respiratory effort, No retractions, No use of accessory muscles and clear to auscultation bilaterally EFFORT & INSPECTION: Yes symmetric chest movement AUSCULTATION: clear to auscultation bilaterally Cardio: COMMON NORMALS: regular rate, regular rhythm, S1 normal heart sound present, S2 normal heart sound present, No gallops present (Cardio), No murmurs present (Cardio), No rub (Cardio) and Peripheral pulses 2+ throughout RATE: regular rate RHYTHM: regular rhythm HEART SOUNDS: S1 normal heart sound present and S2 normal heart sound present PERIPHERAL PULSES: Peripheral pulses 2+ throughout GI: COMMON NORMALS: Normal to inspection, nondistended, normoactive bowel sounds present, Soft to palpation, non-tender, No hepatosplenomegaly present and no masses AUSCULTATION: Yes normoactive bowel sounds PALPATION: Yes Soft to palpation and Yes No hepatosplenomegaly present RECTAL EXAM: deferred Extremity: COMMON NORMALS: no clubbing, cyanosis or edema and no pedal edema Neuro: COMMON NORMALS: patient oriented x3 Data : 05/27/22 04:43 05/27/22 05:42 Micro: Microbiology 05/26/22 18:03 Blood Culture - Preliminary Blood SPECIMEN COLLECTED A&P Assessment and plan (1) Pulmonary emboli: Status: Acute (2) Dehydration: Status: Acute (3) Hypotension: Status: Acute (4) Elevated lactic acid level: Status: Acute (5) Obstructive sleep apnea: Status: Chronic (6) Hypothyroidism: Status: Acute Qualifiers: Hypothyroidism type: acquired Qualified Code(s): E03.9 - Hypothyroidism, unspecified (7) Hypertension: Status: Chronic Qualifiers: Hypertension type: essential hypertension Qualified Code(s): I10 - Essential (primary) hypertension (8) Diabetes mellitus type 2, noninsulin dependent: Status: Chronic (9) Fibromyalgia: Status: Chronic Attestations Medical Necessity Statement*: 81 year old female with PMH of HTN, DM2 , Hypothroidsim , MORENO, Fibromyalgia, came in with c/o mild chest pain as well as sob she denied any fever, cough, nausea, vomiting.On arrival in the ER she was found to be hypotensive with elevated lactic acid.Hypotension was fluid responsive. 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
[2022-05-26] MEDS: sodium chloride 0.9% 1,000 ML 100 ML IV (19:00)
[2022-05-26 19:10] LABS: Troponin 5 2HR 39.43 ng/L (0-10)
[2022-05-26 19:33] VITALS: BP 147/80; PULSE 73; RESP 16; O2SAT 91
[2022-05-26 20:02] LABS: Bilirubin Urine Neg (Negative); Blood Urine Neg (Negative); Glucose Urine UA Norm (Normal); Ketones Urine Negative (Negative); Nitrate Urine Negative (Negative); Protein Urine Neg (Negative); Urine Appearance Hazy (CLEAR); Urine Color Yellow (Yellow); pH Urine 5 (5-7)
[2022-05-26 20:03] LABS: Add Urine Culture? Yes; Add Urine Microscopic? YES; Bacteria Urine 3+ /hpf; Leukocyte Esterase Urine 2+ (Negative); RBC Urine 0-4 /hpf (0-2); Squamous Epithelial Cell Urine 0-4 /hpf (0-5); Urobilinogen Urine 1 mg/dL (Negative)
[2022-05-26 21:55] VITALS: BP 129/85; PULSE 87; RESP 24; O2SAT 90
--- NOTE | 2022-05-26 22:05 | ECG_ITS ---
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 Measurements Intervals [place] Rate: 85 P: 82 CT: 194 QRS: 59 QRSD: 82 T: 46 QT: 341 QTc: 406 Interpretive Statements SINUS RHYTHM Compared to ECG 05/26/2022 17:28:08 No significant changes Electronically Signed On 05-27-2022 9:42:59 CDT by Roger Ramirez M.D. [id number]
[2022-05-26] MEDS: ropinirole 0.25 mg Tablet PO (22:24)
[2022-05-26] MEDS: cefTRIAXone 1,000 MG in sodium chloride 0.9% (plus) 50 ML 100 MG IV (22:25)
[2022-05-26 22:39] LABS: Troponin 5 6HR 38.59 ng/L (0-10)
[2022-05-26 22:43] LABS: Troponin 5 6HR Delta -9.41 ng/L (0-12)
--- NOTE | 2022-05-26 23:06 | PC.NURSE ---
ADMIT NOTE Pt received to floor from ER at 2150. Alert and oriented. Pt is resident at [facility]. IV infusing on arrival to floor with NS at 100ml/hr rate. IV Rocephin was started. Maguire in place and draining cloudy yellow urine. Pericare done. Old urine odor noted. Pt has redness to sacral area but nothing open seen. Was repositioned onto left side. VS check was done and oriented to room. Call light in reach. RN to complete admission assessment
[2022-05-26 23:43] VITALS: BMI 30.4
[2022-05-27 01:19] VITALS: BP 147/75; PULSE 94; RESP 16; TEMP 37.2; O2SAT 88
[2022-05-27] MEDS: sodium chloride 0.9% 1,000 ML 100 ML IV (01:56)
[2022-05-27 05:03] VITALS: BP 147/76; PULSE 95; RESP 18; TEMP 36.9; O2SAT 92
[2022-05-27 05:19] LABS: Basophils # 0.1 10^3/uL (0.0-0.1); Eosinophils # 0.6 10^3/uL (0.0-0.8); Eosinophils % 9.8 %; Hematocrit 40.1 % (37.0-47.0); Hemoglobin 13.7 g/dL (11.5-15.3); Lymphocytes # 1.1 10^3/uL (0.8-4.8); Lymphocytes % 18.1 %; Mean Corpuscular HGB Conc 34.2 g/dL (30.0-36.0); Mean Corpuscular Hemoglobin 28.8 pg (28.0-34.0); Mean Corpuscular Volume 84.2 fl (81-99); Mean Platelet Volume 10.6 fL (7.4-10.4); Monocytes # 0.5 10^3/uL (0.2-0.9); Monocytes % 8.3 %; Neutrophils % 62.1 %; Nucleated Red Blood Cells % 0 %; Platelet Count 154 10^3/cmm (130-400); Red Blood Count 4.76 10^6/uL (4.1-5.3); Red Cell Distribution Width 14.6 % (12.1-15.1); White Blood Count 5.8 10^3/uL (4.0-10.0)
[2022-05-27] MEDS: enoxaparin 80 mg/0.8 mL Syringe SUBCUT (05:48)
[2022-05-27] MEDS: acetaminophen 325 mg Tablet 650 MG PO (05:51)
[2022-05-27 06:20] LABS: Blood Urea Nitrogen 14 mg/dL (8-23); Calcium 8.8 mg/dL (8.5-10.5); Carbon Dioxide 26 mmol/L (22-29); Chloride 107 mmol/L (98-107); Glucose 99 mg/dL (65-115); Osmolality Calculated 297 mOsm/kg (285-295); Sodium 143 mmol/L (136-145)
[2022-05-27 06:21] LABS: Glucose Point of Care 89 mg/dL (70-110)
[2022-05-27 06:23] LABS: Procalcitonin 0.06 ng/mL (0-0.5)
[2022-05-27 08:00] VITALS: BP 151/89; PULSE 84; RESP 17; TEMP 36.5; O2SAT 97
[2022-05-27] MEDS: polyethylene glycol 3350 Pkt 17 gm 4 GM PO (08:48)
[2022-05-27] MEDS: sertraline 100 mg Tablet PO (08:50)
[2022-05-27] MEDS: ropinirole 0.25 mg Tablet PO (08:50)
[2022-05-27] MEDS: quetiapine 25 mg Tablet PO (08:50)
[2022-05-27] MEDS: gabapentin 300 mg Capsule 900 MG PO (08:50)
[2022-05-27] MEDS: levothyroxine 50 mcg Tablet PO (08:51)
[2022-05-27] MEDS: docusate sodium 100 mg Capsule 200 MG PO (08:51)
--- NOTE | 2022-05-27 10:45 | P.DS_ITS ---
Discharge Providers Date of Admission: 05/26/22 22:01 Date of Discharge: May 27, 2022 Attending Provider at Admission: Maximo Mendoza MD Attending Provider at Discharge: Maximo Mendoza MD Primary Care Provider: Mar Cortez MD Diagnoses at Discharge Discharge Diagnosis (1) Pulmonary emboli: Status: Acute (2) Dehydration: Status: Acute (3) Hypotension: Status: Acute (4) Elevated lactic acid level: Status: Acute (5) Obstructive sleep apnea: Status: Chronic Permanent problem details: CPAP at home (6) Hypothyroidism: Status: Acute Qualifiers: Hypothyroidism type: acquired Qualified Code(s): E03.9 - Hypoth yroidism, unspecified (7) Hypertension: Status: Chronic Qualifiers: Hypertension type: essential hypertension Qualified Code(s): I10 - Essential (primary) hypertension (8) Diabetes mellitus type 2, noninsulin dependent: Status: Chronic (9) Fibromyalgia: Status: Chronic Reason for Visit Reason for Visit: PULMONARY EMBOLISM Hospital Course Hospital Course Meghna Crespo is a 81 year old female with PMH of HTN, DM2 , Hypothroidsim , MORENO, Fibromyalgia, came in with c/o mild chest pain as well as sob she denied any fever, cough, nausea, vomiting.On arrival in the ER she was found to be hypotensive with elevated lactic acid.Hypotension was fluid responsive. She was admitted for the management of hypotension, elevated lactic acid, dehydration, acute pulmonary embolism, UTI. She responded well to IV hydration, lactic acidosis had resolved at the time of discharge, she was maintaining a decent MAP, was afebrile and hemodynamically stable. For acute pulmonary embolism initially she was kept on Lovenox therapeutic, she has been discharged on p.o. Eliquis. she was kept on ceftriaxone during the hospital stay, and was discharged on p.o. Augmentin for additional 5 days for UTI, overall she responded well to above edical management.She has been discharged to skilled nursing. Physical Exam Const: COMMON NORMALS: patient oriented x3 Resp: COMMON NORMALS: normal respiratory effort, No retractions, No use of accessory muscles and clear to auscultation bilaterally EFFORT & INSPECTION: Yes symmetric chest movement AUSCULTATION: clear to auscultation bilaterally Cardio: COMMON NORMALS: regular rate, regular rhythm, S1 normal heart sound present, S2 normal heart sound present, No gallops present (Cardio), No murmurs present (Cardio), No rub (Cardio) and Peripheral pulses 2+ throughout RATE: regular rate RHYTHM: regular rhythm HEART SOUNDS: S1 normal heart sound p resent and S2 normal heart sound present PERIPHERAL PULSES: Peripheral pulses 2+ throughout GI: COMMON NORMALS: Normal to inspection, nondistended, normoactive bowel sounds present, Soft to palpation, non-tender, No hepatosplenomegaly present and no masses AUSCULTATION: Yes normoactive bowel sounds PALPATION: Yes Soft to palpation and Yes No hepatosplenomegaly present RECTAL EXAM: deferred Extremity: COMMON NORMALS: no clubbing, cyanosis or edema and no pedal edema Neuro: COMMON NORMALS: patient oriented x3 Urinary Catheter Management: Maguire: Cath Placed During This Visit: yes Reason for Continuing Indwelling Catheter: Acute Urinary Retention or Obstruction Urinary Catheter Date of Insertion: 05/26/22 Urinary Catheter Time of Insertion: 19:33 Discharge Data Studies Completed and Pending Completed Studies During Hospitalization Category Date Time Status CT abdomen pelvis wo con [id number] Stat Cat Scan 05/26/22 16:51 Completed XR chest 1V portable [id number] Stat Exams 05/26/22 15:11 Completed Pending at discharge Category Date Time Status ABG ONLY [Arterial Blood Gas W/O Coox] Stat Lab 05/26/22 16:16 Ordered Basic Metabolic Panel AM LABS Lab 05/28/22 04:00 Ordered Basic Metabolic Panel AM LABS Lab 05/29/22 04:00 Ordered Blood Culture Stat Lab 05/26/22 21:40 Results Complete Blood Count w/Auto AM LABS Lab 05/28/22 04:00 Ordered Complete Blood Count w/Auto AM LABS Lab 05/29/22 04:00 Ordered Urine Culture Stat Lab 05/26/22 19:30 Received Radiology Impressions Chest X-Ray 05/26/22 15:11 IMPRESSION: Stable abnormal chest with no acute abnormality as above. Abdomen/Pelvis CT 05/26/22 16:51 IMPRESSION: No acute findings. Laboratory Results WBC 5.8 10^3/uL (4.0-10.0) 05/27/22 04:43 RBC 4.76 10^6/uL (4.1-5.3) 05/27/22 04:43 Hgb 13.7 g/dL (11.5-15.3) 05/27/22 04:43 Hct 40.1 % (37.0-47.0) 05/27/22 04:43 MCV 84.2 fl (81-99) D 05/27/22 04:43 MCH 28.8 pg (28.0-34.0) 05/27/22 04:43 MCHC 34.2 g/dL (30.0-36.0) D 05/27/22 04:43 RDW 14.6 % (12.1-15.1) 05/27/22 04:43 Plt Count 154 10^3/cmm (130-400) 05/27/22 04:43 MPV 10.6 fL (7.4-10.4) H 05/27/22 04:43 Neut % (Auto) 62.1 % 05/27/22 04:43 Lymph % (Auto) 18.1 % 05/27/22 04:43 [place] % (Auto) 8.3 % 05/27/22 04:43 Eos % (Auto) 9.8 % 05/27/22 04:43 Baso % (Auto) 1.0 % 05/27/22 04:43 Neut # (Auto) 3.60 10^3/uL (1.8-7.7) 05/27/22 04:43 Lymph # (Auto) 1.1 10^3/uL (0.8-4.8) 05/27/22 04:43 [place] # (Auto) 0.5 10^3/uL (0.2-0.9) 05/27/22 04:43 Eos # (Auto) 0.6 10^3/uL (0.0-0.8) 05/27/22 04:43 Baso # (Auto) 0.1 10^3/uL (0.0-0.1) 05/27/22 04:43 Nucleated RBC % (auto) 0 % 05/27/22 04:43 Nucleated RBCs # 0.0 /100WBC 05/27/22 04:43 Sodium 143 mmol/L (136-145) 05/27/22 05:42 Potassium 4.0 mmol/L (3.5-5.1) 05/27/22 05:42 Chloride 107 mmol/L (98-107) 05/27/22 05:42 Carbon Dioxide 26 mmol/L (22-29) 05/27/22 05:42 Anion Gap 14.0 (5-19) 05/27/22 05:42 BUN 14 mg/dL (8-23) 05/27/22 05:42 Creatinine 0.6 mg/dL (0.5-0.9) 05/27/22 05:42 GFR Calculation Not Reportable 05/27/22 05:42 Glucose 99 mg/dL (65-115) 05/27/22 05:42 POC Glucose 89 mg/dL (70-110) 05/27/22 06:05 Calculated Osmolality 297 mOsm/kg (285-295) H 05/27/22 05:42 Lactic Acid 1.0 mmol/L (0.5-2.2) 05/27/22 05:42 Lactate 6.0 mmol/L (0.5-2.2) H* 05/26/22 18:03 Calcium 8.8 mg/dL (8.5-10.5) 05/27/22 05:42 Total Bilirubin 0.2 mg/dL (0.15-1.2) 05/26/22 15:40 AST 10 U/L (0-32) 05/26/22 15:40 ALT < 5 U/L (0-33) 05/26/22 15:40 Alkaline Phosphatase 47 U/L (35-105) 05/26/22 15:40 Troponin T Baseline 48 ng/L (0-10) H 05/26/22 15:40 Troponin T 120 Minute 39.43 ng/L (0-10) H 05/26/22 18:03 Delta Troponin T -8.57 ABS# (0-10) L 05/26/22 18:03 Troponin T Hi Sens 6Hr 38.59 ng/L (0-10) H 05/26/22 21:40 Troponin T Hi Sens 6Hr Delta -9.41 ng/L (0-12) L 05/26/22 21:40 Total Protein 6.0 g/dL (6.6-8.7) L 05/26/22 15:40 Albumin 3.5 g/dL (3.5-5.2) 05/26/22 15:40 Globulin 2.5 g/dL (1.3-4.6) 05/26/22 15:40 Procalcitonin 0.06 ng/mL (0-0.5) 05/27/22 05:42 Urine Color Yellow (Yellow) 05/26/22 19:30 Urine Appearance Hazy (CLEAR) A 05/26/22 19:30 Urine pH 5 (5-7) 05/26/22 19:30 Ur Specific [place] 1.010 (1.005-1.030) 05/26/22 19:30 Urine Protein Neg (Negative) 05/26/22 19:30 Urine Glucose (UA) Norm (Normal) 05/26/22 19:30 Urine Ketones Negative (Negative) 05/26/22 19:30 Urine Blood Neg (Negative) 05/26/22 19:30 Urine Nitrate Negative (Negative) 05/26/22 19:30 Urine Bilirubin Neg (Negative) 05/26/22 19:30 Urine Urobilinogen 1 mg/dL (Negative) H 05/26/22 19:30 Ur Leukocyte Esterase 2+ (Negative) H 05/26/22 19:30 Urine RBC 0-4 /hpf (0-2) H 05/26/22 19:30 Urine WBC 10-15 /hpf (0-5) H 05/26/22 19:30 Ur Squamous Epith Cells 0-4 /hpf (0-5) H 05/26/22 19:30 Amorphous Sediment Not Reportable 05/26/22 19:30 Urine Bacteria 3+ /hpf (NONE) H 05/26/22 19:30 Vitals Last Vital Signs Temp 97.7 F 05/27/22 08:00 Pulse 84 05/27/22 08:00 Resp 17 05/27/22 08:00 BP 151/89 05/27/22 08:00 Pulse Ox 97 05/27/22 08:00 O2 Del Method 05/27/22 08:00 Discharge Plan Discharge Patient Disposition: Xfer SNF Condition: Stable Prescriptions: New Eliquis DVT-PE Treat 30D Start 5 mg (74 tabs) tablets,dose pack See Rx Instructions .ROUTE .COMPLEX Qty: 74 3RF Rx Instructions: orally per package directions Augmentin 500-125 mg tablet 1 tab PO DAILY Qty: 5 0RF Continued oxycodone-acetaminophen 10-325 mg tablet 1 tab PO TID@09,12,21 gabapentin 300 mg capsule 900 mg PO BID ropinirole 0.25 mg tablet 0.25 mg PO BID@0900,2100 levothyroxine 50 mcg tablet 50 mcg PO DAILY@0800 Seroquel 25 mg Tablet 25 mg PO DAILY tizanidine 4 mg Tablet 4 mg PO Q8H PRN (Reason: Muscle Spasm) sertraline 100 mg Tablet 100 mg PO DAILY Milk of Magnesia 400 mg/5 mL Suspension 30 ml PO DAILY PRN (Reason: Constipation) bisacodyl 10 mg Suppository 10 mg NC DAILY PRN (Reason: Constipation) metformin 1,000 mg Tablet 1,000 mg PO BID Fleet Enema 19-7 gram/118 mL Enema 118 ml NC DAILY PRN (Reason: Constipation) Sudogest 30 mg Tablet 30 mg PO Q6H PRN (Reason: Congestion) Miralax 17 gram/dose Powder 4 g PO DAILY fluticasone propionate 50 mcg/actuation [place],Suspension 2 spray INTRANASAL DAILY Rx Instructions: administer into each nostril docusate sodium 100 mg Tablet 200 mg PO DAILY Seroquel 50 mg Tablet 50 mg PO QPM Discharge Orders: Discharge Order (Routine); Ordered 05/27/22 Ordered By: Maximo Mendoza Referrals: Mar Cortez MD [Primary Care Provider] - 1 week Patient Instructions: Apixaban (By mouth), Pulmonary Embolism (GEN), Opioid Safety Discharge Attestations Time Spent in Discharge Care*: less than 30 min Quality Metrics Clinical Quality Measures [ No reported AMI, CVA or VTE this stay] Coding Level of Care Code Acute Chg FW DC note Exam Detailed Diagnoses Pulmonary emboli I26.99 Dehydration E86.0 Hypotension I95.9 Elevated lactic acid level R79.89 Obstructive sleep apnea G47.33 Hypothyroidism E03.9 Hypothyroidism type: acquired Hypertension I10 Hypertension type: essential hypertension Diabetes mellitus type 2, noninsulin dependent E11.9 Fibromyalgia M79.7
[2022-05-27 11:12] VITALS: RESP 16
[2022-05-27] MEDS: oxyCODONE-APAP 10-325 mg Tablet 1 TAB PO (11:12)
[2022-05-27 11:36] VITALS: BP 147/79; PULSE 84; RESP 17; TEMP 36.6; O2SAT 97
[2022-05-27 11:43] LABS: Glucose Point of Care 108 mg/dL (70-110)
--- NOTE | 2022-05-27 14:07 | PC.NURSE ---
rick'd pts audra and db. report called to micah at [facility]. rx [facility] to [facility]. all of pts belongings sent.
== END 2022-05-27 12:00 | disposition skilled nursing facility (03) ==
LOC: ER 17:15 → MEDSURG 05-27 07:32
PROVIDERS: Admitting Provider Internal Medicine; Emergency Provider Emergency Medicine; PCP Family Medicine; Visit Provider Internal Medicine
DX: I26.99 Other pulmonary embolism without acute cor pulmonale (principal); E86.0 Dehydration; I95.9 Hypotension, unspecified; R79.89 Other specified abnormal findings of blood chemistry; G47.33 Obstructive sleep apnea (adult) (pediatric); E03.9 Hypothyroidism, unspecified; I10 Essential (primary) hypertension; E11.9 Type 2 diabetes mellitus without complications; M79.7 Fibromyalgia; N39.0 Urinary tract infection, site not specified; Z79.84 Long term (current) use of oral hypoglycemic drugs
CPT/HCPCS: 36415; 36416; 51702; 71045; 74176; 80048; 80053; 81001; 82962; 83605; 84145; 84484; 85025; 87040; 87077; 87086; 87186; 93005; 96365; 96372; 99285; G0378; J0696; J1650; J7030; J7040

== ENCOUNTER 2022-08-27 16:46 | Emergency (ER) | payer MEDICARE, MEDICAID, SELFPAY ==
[2022-08-27 16:50] VITALS: BP 141/74; PULSE 95; RESP 14; O2SAT 95; BMI 27.4
--- NOTE | 2022-08-27 16:50 | CTR_ITS ---
PROCEDURE INFORMATION: Exam: CT Head Without Contrast Exam date and time: 08/27/2022 5:04 PM Age: 81 years old Clinical indication: Injury or trauma; Fall; Blunt trauma (contusions or hematomas) TECHNIQUE: Imaging protocol: Computed tomography of the head without contrast. Radiation optimization: All CT scans at this facility use at least one of these dose optimization techniques: automated exposure control; mA and/or kV adjustment per patient size (includes targeted exams where dose is matched to clinical indication); or iterative reconstruction. COMPARISON: CT head wo con* [id number] 04/29/2022 7:57 PM RADIATION DOSE METRICS: Total DLP (mGy-cm): 1136.2 FINDINGS: Brain: No acute intracranial hemorrhage. No acute infarct. No intra-axial or extra-axial masses. Jackson-white matter differentiation is preserved. No cerebral edema. No extra-axial fluid collections. No midline shift. No evidence for Chiari 1 malformation. Stable mild atrophy of the brain parenchyma. Stable mildly decreased attenuation in the deep white matter, consistent with mild chronic microangiopathic change. Cerebral ventricles: No hydrocephalus. Paranasal sinuses: Mild mucoperiosteal thickening in the bilateral ethmoid sinuses. Mastoid air cells: Unremarkable as visualized. Orbital cavities: Globes and lenses, extraocular muscles, and optic nerves are intact bilaterally. No acute intraorbital abnormality. Bones/joints: No acute fracture. Soft tissues: Moderate right temporoparietal scalp hematoma/contusion. Vasculature: Atherosclerotic changes in the visualized arteries. CT/CT head wo con* [id number] IMPRESSION: 1. No acute abnormality of the brain. 2. Moderate right temporoparietal scalp hematoma/contusion. 3. Stable mild atrophy of the brain parenchyma. 4. Stable mild chronic white matter microangiopathic change. 5. Incidental/nonacute findings are listed in the report.
--- NOTE | 2022-08-27 16:50 | XRR_ITS ---
PROCEDURE INFORMATION: Exam: XR Right Shoulder Exam date and time: 08/27/2022 5:15 PM Age: 81 years old Clinical indication: Injury or trauma; Fall; Blunt trauma (contusions or hematomas); Shoulder; Right TECHNIQUE: Imaging protocol: Radiologic exam of the Right shoulder. Views: 2 or more views. COMPARISON: CT cervical spin wo con* [id number] 08/27/2022 5:04 PM FINDINGS: Bones/joints: Severe chronic degenerative changes of the right glenohumeral joint. Chronic remodeling and flattening of the humeral head. Chronic erosive changes of the glenoid. Superior separation of the right acromioclavicular (AC) joint. Mildly displaced comminuted fracture through the distal right clavicle. Soft tissues: Normal. XR/XR shoulder RT min 2V* [id number] IMPRESSION: 1. Comminuted mildly displaced fracture in the distal right clavicle. 2. Superior separation of the right AC joint.
--- NOTE | 2022-08-27 16:50 | CTR_ITS ---
PROCEDURE INFORMATION: Exam: CT Cervical Spine Without Contrast Exam date and time: 08/27/2022 5:04 PM Age: 81 years old Clinical indication: Injury or trauma; Fall; Blunt trauma TECHNIQUE: Imaging protocol: Computed tomography of the cervical spine without contrast. Radiation optimization: All CT scans at this facility use at least one of these dose optimization techniques: automated exposure control; mA and/or kV adjustment per patient size (includes targeted exams where dose is matched to clinical indication); or iterative reconstruction. COMPARISON: CT cervical spin wo con* [id number] 12/31/2020 8:36 PM RADIATION DOSE METRICS: Total DLP (mGy-cm): 170.1 FINDINGS: Bones/joints: Vertebral body height is maintained. No subluxation. Bones are diffusely osteopenic. Stable multilevel degenerative changes of varying severity in the visualized spine. Stable significant spinal canal stenosis at C3-C4, moderate spinal canal stenosis at C2-C3, C4-C5, and C5-C, mild spinal canal stenosis at C6-C7 through T2-T3, and multilevel foraminal stenosis of varying severity in the visualized spine. Stable diffuse osteopenia of the visualized bones. No acute fracture. Lungs: Visualized lungs are clear. Vasculature: Mild atherosclerotic changes in the visualized arteries. Soft tissues: No soft tissue swelling. No radiopaque foreign body. CT/CT cervical spin wo con* [id number] IMPRESSION: 1. No acute fracture of the cervical spine. 2. Stable multilevel degenerative changes of varying severity in the visualized spine. 3. Stable significant spinal canal stenosis at C3-C4, moderate spinal canal stenosis at C2-C3, C4-C5, and C5-C, mild spinal canal stenosis at C6-C7 through T2-T3, and multilevel foraminal stenosis of varying severity in the visualized spine. 4. Incidental/nonacute findings are listed in the report.
[2022-08-27 17:05] VITALS: BP 141/74; PULSE 99; RESP 16; O2SAT 97
--- NOTE | 2022-08-27 17:08 | W.ED.HEATRA ---
HPI - Head Injury General: Chief complaint: Head Injury Stated complaint: HEAD AND RIGHT SHOULDER PAIN S/P FALL Time Seen by Provider: 08/27/22 17:06 Source: patient and EMS Mode of arrival: EMS Limitations: no limitations History of Present Illness: 81-year-old female is here from custodial states she was getting out of bed and fell against her wall states she hit her head along with right shoulder. Patient states that she does have right shoulder pain along with a headache she rates her pain a 5 out of 10 she denies any loss of consciousness denies any lower extremity injuries. Associated symptoms: Reports neck pain; Deny nausea or vomiting Review of Systems Const: Denies: fever(s), chills, body aches or change in appetite Eyes: Denies: blurry vision or eye discomfort ENMT: Denies: throat pain or dental pain Card: Denies: chest pain Resp: Denies: dyspnea GI: Denies: abdominal pain, nausea, vomiting or diarrhea : Denies: dysuria Musc: Reports: neck pain and extremity pain Skin/Breast: Denies: rash Neuro: Reports: headache(s) Psych: Denies: depression Niall/Lymph: Denies: easy bruising All/Imm: Denies: urticaria PFSH ED PFSH: Medical History (Updated 08/27/22 @ 17:45 by Reyes Santos MD) Diabetes mellitus type 2, noninsulin dependent Fibromyalgia Hypertension Hypothyroidism Obstructive sleep apnea CPAP at home Surgical History History of back surgery History of bilateral knee replacement History of cholecystectomy History of right hip replacement History of shoulder surgery bilateral Family History Denies family history of CAD (coronary artery disease) Social History Smoking and tobacco status: never smoked Caregiver/support person: No Household members: none Physical Exam Const: COMMON NORMALS: no acute distress, patient oriented x3 and healthy appearing HENMT: COMMON NORMALS: normocephalic; head/scalp not atraumatic (head contusion) HEAD & SCALP: normocephalic; not atraumatic (head contusion) Eye: COMMON NORMALS: Equal, round and reactive pupils present and EOMs intact bilaterally PUPIL: Yes Equal, round and reactive pupils present Neck/C-Spine: COMMON NORMALS: full ROM and supple Chest: COMMONS NORMALS: normal inspection of the chest and normal palpation of entire chest wall Resp: COMMON NORMALS: normal respiratory effort, No retractions, No use of accessory muscles and clear to auscultation bilaterally AUSCULTATION: clear to auscultation bilaterally Cardio: COMMON NORMALS: regular rate, regular rhythm and No murmurs present (Cardio) RATE: regular rate RHYTHM: regular rhythm GI: COMMON NORMALS: Normal to inspection, nondistended, normoactive bowel sounds present, Soft to palpation, non-tender and no masses PALPATION: Yes Soft to palpation Extremity: COMMON NORMALS: full ROM NARRATIVE EXTREMITY EXAM: tenderness over right shoulder no obvious deformity Neuro: COMMON NORMALS: patient oriented x3, moves all extremities and no focal motor deficits Psych: COMMON NORMALS: mental status grossly normal, Normal thought process present and cooperative THOUGHT PROCESS: Normal thought process present Skin: COMMON NORMALS: no rashes or lesions noted and no wounds GENERAL SKIN EXAM: no rashes or lesions noted Course Vital Signs: Vital signs: Vital Signs Pulse Rate 95 08/27/22 16:50 Respiratory Rate 14 08/27/22 16:50 Blood Pressure 141/74 08/27/22 16:50 Pulse Oximetry 95 08/27/22 16:50 Oxygen Delivery Me thod 08/27/22 16:50 MDM - Head Injury Medcial Decision Making Patient presents here with a clavicle fracture along with a head injury from a fall her head CT and C-spine CT are negative we will place her in a sling and follow-up with orthopedic she is stable for discharge. Lab Data Radiology Impressions Cervical Spine CT 08/27/22 16:50 IMPRESSION: 1. No acute fracture of the cervical spine. 2. Stable multilevel degenerative changes of varying severity in the visualized spine. 3. Stable significant spinal canal stenosis at C3-C4, moderate spinal canal stenosis at C2-C3, C4-C5, and C5-C, mild spinal canal stenosis at C6-C7 through T2-T3, and multilevel foraminal stenosis of varying severity in the visualized spine. 4. Incidental/nonacute findings are listed in the report. Head CT 08/27/22 16:50 IMPRESSION: 1. No acute abnormality of the brain. 2. Moderate right temporoparietal scalp hematoma/contusion. 3. Stable mild atrophy of the brain parenchyma. 4. Stable mild chronic white matter microangiopathic change. 5. Incidental/nonacute findings are listed in the report. Shoulder X-Ray 08/27/22 16:50 IMPRESSION: 1. Comminuted mildly displaced fracture in the distal right clavicle. 2. Superior separation of the right AC joint. Discharge Plan Discharge Patient Disposition: Home Clinical Impression: Closed head injury Clavicle fracture Qualifiers: Encounter type: initial encounter Fracture type: closed Laterality: right Condition: Stable Prescriptions: New hydrocodone-acetaminophen 5-325 mg tablet 1 tab PO Q6H PRN (Reason: pain) Qty: 14 0RF No Action oxycodone-acetaminophen 10-325 mg tablet 1 tab PO TID@09,12,21 gabapentin 300 mg capsule 900 mg PO BID ropinirole 0.25 mg tablet 0.25 mg PO BID@0900,2100 levothyroxine 50 mcg tablet 50 mcg PO DAILY@0800 Seroquel 25 mg Tablet 25 mg PO DAILY tizanidine 4 mg Tablet 4 mg PO Q8H PRN (Reason: Muscle Spasm) sertraline 100 mg Tablet 100 mg PO DAILY Milk of Magnesia 400 mg/5 mL Suspension 30 ml PO DAILY PRN (Reason: Constipation) bisacodyl 10 mg Suppository 10 mg TN DAILY PRN (Reason: Constipation) metformin 1,000 mg Tablet 1,000 mg PO BID Fleet Enema 19-7 gram/118 mL Enema 118 ml TN DAILY PRN (Reason: Constipation) Sudogest 30 mg Tablet 30 mg PO Q6H PRN (Reason: Congestion) Miralax 17 gram/dose Powder 4 g PO DAILY fluticasone propionate 50 mcg/actuation Trent,Suspension 2 spray INTRANASAL DAILY Rx Instructions: administer into each nostril docusate sodium 100 mg Tablet 200 mg PO DAILY Seroquel 50 mg Tablet 50 mg PO QPM Eliquis DVT-PE Treat 30D Start 5 mg (74 tabs) tablets,dose pack See Rx Instructions .ROUTE .COMPLEX Qty: 74 3RF Rx Instructions: orally per package directions Augmentin 500-125 mg tablet 1 tab PO DAILY Qty: 5 0RF Discharge Orders: Discharge ED (Routine); Ordered 08/27/22 Ordered By: Reyes Santos Referrals: Mar Cortez MD [Primary Care Provider] - Akilah Thakur MD [Physician] - 1-3 days Discharge Diet: Advance as tolerated Discharge Activity: Resume usual activity Patient Instructions: Chest Pain (ED) Coding Level of Care Code ED Advertising Sales Consultant for Chg Fwd Exam Comprehensive
[2022-08-27 18:05] VITALS: BP 145/119; PULSE 85; RESP 16; O2SAT 96
[2022-08-27] MEDS: HYDROcodone-acetaminophen 5-325 mg Tablet 1 TAB PO (18:31)
[2022-08-27] MEDS: LORazepam 2 mg/mL INJ 1 mL 1 MG IVP (18:31)
--- NOTE | 2022-08-27 18:39 | PC.NURSE ---
RIGHT ARM SLING APPLIED [id number]
--- NOTE | 2022-08-27 18:40 | XRR_ITS ---
PROCEDURE INFORMATION: Exam: XR Pelvis Exam date and time: 08/27/2022 6:50 PM Age: 81 years old Clinical indication: Injury or trauma; Blunt trauma (contusions or hematomas); Left; Injury date: Today; Patient HX: L hip / pelvic pain post fall; Fracture RT clavicle; Additional info: L hip/pelvic pain post fall TECHNIQUE: Imaging protocol: Radiologic exam of the pelvis. Views: 1 or 2 view. COMPARISON: CT abdomen pelvis wo con [id number] 05/26/2022 5:12 PM FINDINGS: Bones/joints: Total right hip arthroplasty changes. The bones and hardware appear intact and in normal alignment. Partially visualized lumbar fusion hardware. Soft tissues: Unremarkable. XR/XR pelvis 1-2V* [id number] IMPRESSION: No acute findings.
[2022-08-27 20:24] VITALS: PULSE 85; RESP 16; O2SAT 96
--- NOTE | 2022-08-28 08:15 | DCPLANNER ---
Addendum entered by Shefali Gilliam 09/08/22 13:51: Patient had a follow up appointment scheduled with ortho - patient did attend appointment. Addendum entered by Shefali Gilliam 08/29/22 14:17: Patient has a follow up appointment scheduled with ortho for Sunday, August 30, 2022 at 1:00 with Minh at ortho. Clinic will call patient with appointment information. Original Note: product marketing manager had message to schedule a follow up appointment for patient with ortho. product marketing manager sent patients information to the front office staff at ortho. Patients information will be printed and reviewed. Clinic will call patient with appointment information.
== END 2022-08-27 20:10 | disposition home or self-care (01) ==
PROVIDERS: Emergency Provider Emergency Medicine; PCP Family Medicine
DX: S09.8XXA Other specified injuries of head, initial encounter (principal); S42.031A Displaced fracture of lateral end of right clavicle, initial encounter for closed fracture; Z79.84 Long term (current) use of oral hypoglycemic drugs; Z79.01 Long term (current) use of anticoagulants; E11.9 Type 2 diabetes mellitus without complications; I10 Essential (primary) hypertension; W06.XXXA Fall from bed, initial encounter
CPT/HCPCS: 70450; 72125; 72170; 73030; 96374; 99285; J2060

== ENCOUNTER → 2022-08-30 13:16 | Outpatient (BNVA) | payer MEDICARE, MEDICAID, SELFPAY | PROVIDERS: PCP Family Medicine; Referring Provider Emergency Medicine; Visit Provider Nurse Practitioner Family | DX: S43.101A Unspecified dislocation of right acromioclavicular joint, initial encounter (principal); S42.034A Nondisplaced fracture of lateral end of right clavicle, initial encounter for closed fracture; W18.30XA Fall on same level, unspecified, initial encounter | CPT/HCPCS: 99214 ==

== ENCOUNTER 2022-10-06 18:11 | Outpatient (CLI) | payer MEDICARE, MEDICAID, SELFPAY ==
[2022-10-06 18:24] LABS: Blood Urine 2+ (Negative); Glucose Urine UA Norm (Normal); Ketones Urine 1+ (Negative); Protein Urine 3+ (Negative); Urine Appearance Hazy (CLEAR); Urine Color Yellow (Yellow); pH Urine 6 (5-7)
[2022-10-06 18:25] LABS: Add Urine Microscopic? YES; Bilirubin Urine Neg (Negative); Leukocyte Esterase Urine 1+ (Negative); Nitrate Urine Positive (Negative); Urobilinogen Urine Neg (Negative)
[2022-10-06 18:29] LABS: Add Urine Culture? Yes; Bacteria Urine 4+ /hpf; RBC Urine 0-4 /hpf (0-2); WBC Urine 0-4 /hpf (0-5)
== END 2022-10-06 18:12 | disposition home or self-care (01) ==
PROVIDERS: PCP Family Medicine; Visit Provider Nurse Practitioner Family
DX: I10 Essential (primary) hypertension (principal)
CPT/HCPCS: 81001; 87077; 87086; 87186

== ENCOUNTER → 2022-12-04 09:48 | Outpatient (BNVA) | payer MEDICARE, MEDICAID, SELFPAY | PROVIDERS: PCP Family Medicine; Visit Provider Specialist | DX: S42.031D Displaced fracture of lateral end of right clavicle, subsequent encounter for fracture with routine healing (principal); S43.101D Unspecified dislocation of right acromioclavicular joint, subsequent encounter; W19.XXXD Unspecified fall, subsequent encounter | CPT/HCPCS: 73000; 99213 ==

== ENCOUNTER 2022-12-20 14:51 | Emergency (ER) | payer MEDICARE, MEDICAID, SELFPAY ==
[2022-12-20] VITALS (25 sets, daily range): BP systolic 123–161; BP diastolic 49–104; PULSE 74–77; RESP 17–18; TEMP 36.6; O2SAT 91–96; BMI 26.8
--- NOTE | 2022-12-20 16:11 | ED_ITS ---
HPI - Altered Mental Status General: Chief Complaint: Altered Mental Status Stated Complaint: AMS Time Seen by Provider: 12/20/22 15:48 History of Present Illness: 82-year-old female presents to the emergency department with the triage complaint of altered mental status. She lives in a [place] [facility]. When I spoke to the patient she states that she did not want to get out of bed. The staff was wanting her to get out of bed. It sounds like they began to think that she was altered and sent her for evaluation because she has a history of urinary tract infections. The patient has not delirious or somnolent now. She has full conversation with me and maintains alertness. She is very tearful and when I began to talk to her about her symptoms it seems she is suffering from dep ression. She is no longer participating in things she used to like games at the [place] [facility]. She had to give up her home after her son in August. She is having an adjustment disorder. She has chronic right upper extremity swelling which she states is unchanged. She denies any acute illness. She does not walk and cannot stand which is also furthering her depression and feeling of helplessness. Review of Systems General: Reports: 10 or more systems reviewed and unremarkable except in HPI and below Const: Denies: fever(s), chills or body aches Eyes: Denies: change in vision ENMT: Denies: throat pain Card: Denies: chest pain, edema or syncope Resp: Denies: dyspnea or productive cough GI: Denies: abdominal pain, nausea, vomiting or diarrhea : Denies: flank pain, dysuria or urinary frequency Musc: Denies: neck pain or back pain Skin/Breast: Denies: rash or erythema Neuro: Denies: lack of coordination PFSH ED PFSH: Medical History (Updated 12/20/22 @ 17:07 by Jorge Juarez MD) Diabetes mellitus type 2, noninsulin dependent Fibromyalgia Hypertension Hypothyroidism Obstructive sleep apnea CPAP at home Surgical History History of back surgery History of bilateral knee replacement History of cholecystectomy History of right hip replacement History of shoulder surgery bilateral Family History Denies family history of CAD (coronary artery disease) Social History Smoking and tobacco status: never smoked Caregiver/support person: No Household members: none Physical Exam Narrative: 82-year-old elderly appearing female in no distress. She was asleep when I first came in. She woke up easily and has been able to maintain her alertness. She converses and is engaged in our conversation. Her head is normocephalic and without trauma. Her pupils are equal round and reactive to light. Her extraocular movements are intact. Her neck is soft and nontender. She has normal work of breathing and her lungs are clear. There is symmetrical chest rise. Her heart rate is normal. Her radial pulses palpable. Her abdomen is soft and nontender. She is wearing a depends adult diaper. She has swelling in her right upper extremity compared to the left side. She says this is chronic for years . She does not have any signs of acute trauma or any deformities in her extremities. Her pelvis is stable. Her mood is that of depression. She actually becomes tearful at several points. She also notes trouble adjusting to her son's and now living in the [place] [facility]. She is alert, oriented to self, oriented to location. She is oriented to the reason for her visit which she reports as not wanting to get out of bed Course Vital Signs: Vital signs: Vital Signs Temperature 97.8 F 12/20/22 14:54 Pulse Rate 77 12/20/22 14:54 Respiratory Rate 18 12/20/22 14:54 Blood Pressure 141/86 12/20/22 15:45 Pulse Oximetry 92 12/20/22 15:45 Oxygen Delivery Me thod Room Air 12/20/22 14:54 MDM - Altered Mental Status Medical Decision Making I suspect that this is a combination of grieving, depression, adjustment disorder, and fibromyalgia. Patient does have a history of frequent UTIs so this should be checked. I noted that it was unusual that the patient used the words I didn't WANT to get out of bed . I think this is more of the issue rather than an acute altered mental status. UPDATE: Patient's labs are unremakable. I'm awaiting a urine analysis. I will sign out to Dr Gould to f/u on UA. If this is negative, patient can be discharged. Lab Data 12/20/22 15:07 12/20/22 15:07 Laboratory Results WBC 5.9 10^3/uL (4.0-10.0) 12/20/22 15:07 RBC 4.15 10^6/uL (4.1-5.3) 12/20/22 15:07 Hgb 11.5 g/dL (11.5-15.3) 12/20/22 15:07 Hct 36.5 % (37.0-47.0) L 12/20/22 15:07 MCV 88.0 fl (81-99) 12/20/22 15:07 MCH 27.7 pg (28.0-34.0) L 12/20/22 15:07 MCHC 31.5 g/dL (30.0-36.0) 12/20/22 15:07 RDW 13.8 % (12.1-15.1) 12/20/22 15:07 Plt Count 260 10^3/cmm (130-400) 12/20/22 15:07 MPV 9.4 fL (7.4-10.4) 12/20/22 15:07 Neut % (Auto) 45.3 % 12/20/22 15:07 Lymph % (Auto) 37.5 % 12/20/22 15:07 [place] % (Auto) 9.3 % 12/20/22 15:07 Eos % (Auto) 6.6 % 12/20/22 15:07 Baso % (Auto) 1.0 % 12/20/22 15:07 Neut # (Auto) 2.68 10^3/uL (1.8-7.7) 12/20/22 15:07 Lymph # (Auto) 2.2 10^3/uL (0.8-4.8) 12/20/22 15:07 [place] # (Auto) 0.6 10^3/uL (0.2-0.9) 12/20/22 15:07 Eos # (Auto) 0.4 10^3/uL (0.0-0.8) 12/20/22 15:07 Baso # (Auto) 0.1 10^3/uL (0.0-0.1) 12/20/22 15:07 Nucleated RBC % (auto) 0 % 12/20/22 15:07 Nucleated RBCs # 0.0 /100WBC 12/20/22 15:07 Sodium 141 mmol/L (136-145) 12/20/22 15:07 Potassium 4.2 mmol/L (3.5-5.1) 12/20/22 15:07 Chloride 101 mmol/L (98-107) 12/20/22 15:07 Carbon Dioxide 25 mmol/L (22-29) 12/20/22 15:07 Anion Gap 19.2 (5-19) H 12/20/22 15:07 BUN 19 mg/dL (8-23) 12/20/22 15:07 Creatinine 0.8 mg/dL (0.5-0.9) 12/20/22 15:07 GFR Calculation Not Reportable 12/20/22 15:07 Glucose 81 mg/dL (65-115) 12/20/22 15:07 Calculated Osmolality 293 mOsm/kg (285-295) 12/20/22 15:07 Calcium 9.5 mg/dL (8.5-10.5) 12/20/22 15:07 Total Bilirubin 0.2 mg/dL (0.15-1.2) 12/20/22 15:07 AST 14 U/L (0-32) 12/20/22 15:07 ALT 7 U/L (0-33) 12/20/22 15:07 Alkaline Phosphatase 50 U/L (35-105) 12/20/22 15:07 Total Protein 6.4 g/dL (6.6-8.7) L 12/20/22 15:07 Albumin 4.0 g/dL (3.5-5.2) 12/20/22 15:07 Globulin 2.4 g/dL (1.3-4.6) 12/20/22 15:07 TSH 3.03 uIU/mL (0.27-4.20) 12/20/22 15:07 Discharge Plan Discharge Patient Disposition: er [facility] Clinical Impression: Depression determined by examination, Physical deconditioning, Grief at loss of child, Low energy Condition: Stable Referrals: Mar Cortez MD [Primary Care Provider] - Coding Level of Care Code ED Call Circuit Worker for Chg Sh[facility]
[2022-12-20 16:19] LABS: Basophils # 0.1 10^3/uL (0.0-0.1); Eosinophils # 0.4 10^3/uL (0.0-0.8); Eosinophils % 6.6 %; Hematocrit 36.5 % (37.0-47.0); Hemoglobin 11.5 g/dL (11.5-15.3); Lymphocytes # 2.2 10^3/uL (0.8-4.8); Lymphocytes % 37.5 %; Mean Corpuscular HGB Conc 31.5 g/dL (30.0-36.0); Mean Corpuscular Hemoglobin 27.7 pg (28.0-34.0); Mean Platelet Volume 9.4 fL (7.4-10.4); Monocytes # 0.6 10^3/uL (0.2-0.9); Monocytes % 9.3 %; Neutrophils # 2.68 10^3/uL (1.8-7.7); Neutrophils % 45.3 %; Nucleated Red Blood Cells % 0 %; Platelet Count 260 10^3/cmm (130-400); Red Blood Count 4.15 10^6/uL (4.1-5.3); Red Cell Distribution Width 13.8 % (12.1-15.1); White Blood Count 5.9 10^3/uL (4.0-10.0)
[2022-12-20 17:04] LABS: Alanine Aminotransferase 7 U/L (0-33); Alkaline Phosphatase 50 U/L (35-105); Anion Gap 19.2 (5-19); Aspartate Amino Transferase 14 U/L (0-32); Blood Urea Nitrogen 19 mg/dL (8-23); Calcium 9.5 mg/dL (8.5-10.5); Carbon Dioxide 25 mmol/L (22-29); Chloride 101 mmol/L (98-107); Globulin 2.4 g/dL (1.3-4.6); Glucose 81 mg/dL (65-115); Osmolality Calculated 293 mOsm/kg (285-295); Potassium 4.2 mmol/L (3.5-5.1); Sodium 141 mmol/L (136-145); Thyroid Stimulating Hormone 3.03 uIU/mL (0.27-4.20); Total Bilirubin 0.2 mg/dL (0.15-1.2); Total Protein 6.4 g/dL (6.6-8.7)
--- NOTE | 2022-12-20 18:05 | PC.NURSE ---
pt reported sacral pain, buttocks and sacrum examined for wound. PT has reddened area on coccyx that is still able to be blanched.
[2022-12-20 18:25] LABS: Urine Color Yellow (Yellow)
[2022-12-20 18:26] LABS: Add Urine Microscopic? YES; Bilirubin Urine Neg (Negative); Blood Urine 3+ (Negative); Glucose Urine UA Norm (Normal); Ketones Urine 1+ (Negative); Leukocyte Esterase Urine 2+ (Negative); Nitrate Urine Negative (Negative); Protein Urine 2+ (Negative); Urine Appearance Cloudy (CLEAR); Urobilinogen Urine Neg (Negative); pH Urine 6.5 (5-7)
[2022-12-20 18:34] LABS: RBC Urine TOO NUMEROUS TO CNT /hpf (0-2)
[2022-12-20 18:35] LABS: Add Urine Culture? Yes; Bacteria Urine 4+ /hpf; Mucus Urine TRACE /hpf; Squamous Epithelial Cell Urine 0-4 /hpf (0-5); WBC Urine >100 /hpf (0-5)
[2022-12-20] MEDS: cefTRIAXone 1,000 MG in water for injection-sterile 2.1 ML 1 MG IM (19:52)
== END 2022-12-20 20:50 ==
PROVIDERS: Emergency Medicine; Emergency Provider Emergency Medicine; PCP Family Medicine
DX: F32.A Depression, unspecified (principal); F43.20 Adjustment disorder, unspecified; R53.83 Other fatigue; E11.9 Type 2 diabetes mellitus without complications; I10 Essential (primary) hypertension
CPT/HCPCS: 51701; 80053; 81001; 84443; 85025; 87086; 87186; 96365; 96372; 99284; J0696

== ENCOUNTER 2022-12-29 05:53 | Emergency (ER) | payer MEDICARE, MEDICAID, SELFPAY ==
[2022-12-29] VITALS (9 sets, daily range): BP systolic 104–161; BP diastolic 75–95; PULSE 70–98; RESP 16; TEMP 36.9; O2SAT 98–99; BMI 25.8
--- NOTE | 2022-12-29 06:38 | CTR_ITS ---
PROCEDURE INFORMATION: Exam: CT Head Without Contrast Exam date and time: 12/29/2022 6:57 AM Age: 82 years old Clinical indication: Injury or trauma; Fall; Blunt trauma (contusions or hematomas); Without loss of consciousness TECHNIQUE: Imaging protocol: Computed tomography of the head without contrast. Radiation optimization: All CT scans at this facility use at least one of these dose optimization techniques: automated exposure control; mA and/or kV adjustment per patient size (includes targeted exams where dose is matched to clinical indication); or iterative reconstruction. REPORTING DATA: Count of CT and Cardiac NM exams in prior 12 months: This patient has received 7 known CTs and 0 known cardiac nuclear medicine studies in the 12 months prior to the current study. COMPARISON: CT head wo con* [id number] 08/27/2022 5:04 PM RADIATION DOSE METRICS: Total DLP (mGy-cm): 1019.11 FINDINGS: Brain: There is a similar moderate degree of diffuse cerebral volume loss. Similar distribution of moderate bilateral frontal and parietal lobe and external capsule white matter hypodensity. No intracranial hemorrhage is identified. Cerebral ventricles: The ventricular system demonstrates similar mild diffuse compensatory enlargement. Paranasal sinuses: Mild mucosal thickening of the right maxillary sinus is noted. Mastoid air cells: Mild fluid in the bilateral mastoid air cells is noted. Bones/joints: Unremarkable. No acute fracture. Soft tissues: Unremarkable. CT/CT head wo con* [id number] IMPRESSION: 1. No evidence of acute skull fracture or intracranial hemorrhage. 2. Moderate similar bilateral frontal and parietal lobe and external capsule white matter hypodensity compatible with chronic small vessel ischemic changes. 3. Small bilateral mastoid effusions. 4. Mild chronic appearing right maxillary sinus disease.
--- NOTE | 2022-12-29 06:38 | CTR_ITS ---
PROCEDURE INFORMATION: Exam: CT Cervical Spine Without Contrast Exam date and time: 12/29/2022 6:57 AM Age: 82 years old Clinical indication: Injury or trauma; Fall; Blunt trauma TECHNIQUE: Imaging protocol: Computed tomography of the cervical spine without contrast. Radiation optimization: All CT scans at this facility use at least one of these dose optimization techniques: automated exposure control; mA and/or kV adjustment per patient size (includes targeted exams where dose is matched to clinical indication); or iterative reconstruction. REPORTING DATA: Count of CT and Cardiac NM exams in prior 12 months: This patient has received 7 known CTs and 0 known cardiac nuclear medicine studies in the 12 months prior to the current study. COMPARISON: CT cervical spin wo con* [id number] 08/27/2022 5:04 PM RADIATION DOSE METRICS: Total DLP (mGy-cm): 180.8 FINDINGS: Bones/joints: 2-3 mm of retrolisthesis of C3 on C4 is noted. The vertebral body heights are maintained. Mild to moderate diffuse degenerative spondylosis is present. There is severe disc space narrowing from C2-C3 through C5-C6 and from C7-T1 through T2-T3. Moderate C6-C7 disc space narrowing. C2-C3: Disc bulge measures 4 mm. Posterior osteophyte formation is greatest to the right of midline. Moderate right-sided neural foraminal stenosis. No significant left-sided neural foraminal stenosis. Mild canal stenosis. C3-C4: Mild left greater than right uncovertebral joint hypertrophy is noted. Disc bulge measures 4 mm. There is posterior osteophyte formation. Neural foraminal stenosis are severe bilaterally. [id number] canal stenosis. C4-C5: Moderate bilateral facet hypertrophy is noted. Posterior osteophyte formation is present. Neural foraminal stenosis are severe on the left and moderate to severe on the right. Mild canal stenosis. C5-C6: Mild bilateral uncovertebral joint hypertrophy is noted. Disc bulge measures 3-4 mm and is partially calcified. Posterior osteophyte formation is noted. Neural foraminal stenosis are severe on the left and moderate to severe on the right. Mild canal stenosis. C6-C7: Posterior osteophyte formation is noted with moderate right-sided neural foraminal stenosis and mild left-sided neural foraminal stenosis. Mild stenosis of the right lateral recess. C7-T1: Posterior osteophyte formation is noted with moderate right-sided neural foraminal stenosis and [id number] left-sided neural foraminal stenosis. No significant canal stenosis. Mastoid air cells: Mild fluid in the bilateral mastoid air cells is noted. Lungs: Lung apices are normal. Pleural spaces: Mild biapical pleural scarring is present. Soft tissues: An exophytic soft tissue density nodule the anterior base of the neck on the left is noted on series 4, image 72 measuring approximately [address]/CT cervical spin wo con* [id number] IMPRESSION: 1. No acute cervical spine findings. 2. Multilevel degenerative changes appears similar. The greatest neural foraminal stenoses appear severe on the left at C4-C5 and C5-C6 and bilaterally at C3-C4. 3. The greatest canal stenosis is [id number] at C3-C4. 4. Small bilateral mastoid effusions. 5. A soft tissue density nodule arises from the skin surface of the anterior base of the neck on the left. Correlation with clinical findings is recommended.
--- NOTE | 2022-12-29 06:38 | XRR_ITS ---
PROCEDURE INFORMATION: Exam: XR Right Shoulder Exam date and time: 12/29/2022 7:25 AM Age: 82 years old Clinical indication: Injury or trauma; Fall; Blunt trauma (contusions or hematomas); Shoulder; Right TECHNIQUE: Imaging protocol: Radiologic exam of the right shoulder. Views: 2 or more views. 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 Severe degenerative changes of the acromioclavicular joint. Chronic remodeling and flattening of the humeral head. Negative for dislocation. Negative for acute fracture. Soft tissues: Normal. XR/XR shoulder RT min 2V* [id number] IMPRESSION: No acute right shoulder pathology identified.
--- NOTE | 2022-12-29 06:38 | XRR_ITS ---
PROCEDURE INFORMATION: Exam: XR Right Humerus Exam date and time: 12/29/2022 7:25 AM Age: 82 years old Clinical indication: Injury or trauma; Fall; Blunt trauma (contusions or hematomas); Arm, upper; Right TECHNIQUE: Imaging protocol: Radiologic exam of the right humerus. Views: 2 or more views. COMPARISON: [place] [id number] 12/04/2022 9:50 AM FINDINGS: Bones/joints: End-stage nonspecific productive arthritis pattern of right glenohumeral joint. Flattening and remodeling of the humeral head. Complete joint space loss. Hypertrophic osseous spurring of acromioclavicular joint. Distal right clavicle is elevated relative to the acromion but this is unchanged. Negative for joint dislocation. No definite acute fracture visible. Humeral neck area quite difficult to define given the chronic deformity. Soft tissues: Unremarkable. XR/[place] [id number] IMPRESSION: No visible fracture identified.
--- NOTE | 2022-12-29 06:50 | W.ED.FALL ---
HPI - Fall General: Chief Complaint: Fall Stated Complaint: Fall Time Seen by Provider: 12/29/22 06:11 Source: patient History of Present Illness: 82-year-old female who is brought to the emergency room by EMS from local senior care. She tells me she went to roll over in bed and rolled out of bed she landed on the floor. She is complaining of right shoulder pain radiating down to her midshaft of her humerus nearly to the elbow. There is no loss of consciousness she is complaining some mild neck discomfort. She does have a small superficial laceration along the supraorbital ridge laterally on the left. She is on Eliquis. She is otherwise awake and alert no vomiting or diarrhea. August 2022 patient sustained a clavicle fracture was seen in the emergency room. 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 MD complaint: fall Onset (ago): minute(s) Fall from: out of bed Place fall occurred: senior care/[facility] Loss of consciousness: None Symptoms prior to fall: none Associated symptoms-after fall: Denies abdominal pain or chest pain Review of Systems Const: Reports: body aches and change in appetite; Denies: fever(s) or chills Card: Reports: edema; Denies: chest pain, dyspnea on exertion or orthopnea Resp: Denies: dyspnea, productive cough or non-productive cough GI: Denies: abdominal pain, nausea, vomiting, diarrhea, constipation or bloating : Denies: flank pain, difficulty voiding, dysuria, urinary frequency or urinary urgency Skin/Breast: Denies: rash or pruritus PFSH ED PFSH: Medical History (Updated 12/29/22 @ 09:31 by Chino Heller DO) Diabetes mellitus type 2, noninsulin dependent Fibromyalgia Hypertension Hypothyroidism Obstructive sleep apnea CPAP at home Surgical History History of back surgery History of bilateral knee replacement History of cholecystectomy History of right hip replacement History of shoulder surgery bilateral Family History Denies family history of CAD (coronary artery disease) Social History Smoking and tobacco status: never smoked Caregiver/support person: No Household members: none Physical Exam Const: GENERAL APPEARANCE: cooperative and comfortable ORIENTATION/CONSCIOUSNESS: Yes awake HENMT: COMMON NORMALS: normocephalic, atraumatic and hearing grossly normal bilaterally HEAD & SCALP: normocephalic and atraumatic Resp: COMMON NORMALS: normal respiratory effort, No retractions, No use of accessory muscles and clear to auscultation bilaterally AUSCULTATION: clear to auscultation bilaterally Cardio: COMMON NORMALS: regular rate, regular rhythm and No murmurs present (Cardio) RATE: regular rate RHYTHM: regular rhythm GI: COMMON NORMALS: Soft to palpation and No hepatosplenomegaly present AUSCULTATION: Yes normoactive bowel sounds PALPATION: Yes Soft to palpation, No Tenderness to palpation present (GI), No Guarding due to palpation present (GI) and Yes No hepatosplenomegaly present Extremity: COMMON NORMALS: normal to inspection, capillary refill normal, no clubbing, cyanosis or edema, no calf tenderness and no pedal edema Skin: COMMON NORMALS: no rashes or lesions noted GENERAL SKIN EXAM: no rashes or lesions noted Course Vital Signs: Vital signs: Vital Signs Temperature 98.4 F 12/29/22 05:56 Pulse Rate 72 12/29/22 10:00 Respiratory Rate 16 12/29/22 06:36 Blood Pressure 160/78 12/29/22 10:27 Pulse Oximetry 98 12/29/22 10:27 Oxygen Delivery Me thod Nasal Cannula 12/29/22 10:00 Oxygen Flow Rate 2.5 12/29/22 10:00 MDM - Fall Medical Decision Making Fall with no significant injury. There is old fracture of the right proximal humerus and distal clavicle AC joint separation which is all chronic. No acute injury. Is a small laceration that is not full-thickness on the left supraorbital ridge to be treated with topical antibiotic ointment. CT of the head done there is no sign of intracranial bleeding CT of the neck does not show any any fracture. Discharged to the senior care. Medical Records I reviewed the patient's medical records. Lab Data I reviewed the patient's lab results. Radiology Impressions Cervical Spine CT 12/29/22 06:38 IMPRESSION: 1. No acute cervical spine findings. 2. Multilevel degenerative changes appears similar. The greatest neural foraminal stenoses appear severe on the left at C4-C5 and C5-C6 and bilaterally at C3-C4. 3. The greatest canal stenosis is [id number] at C3-C4. 4. Small bilateral mastoid effusions. 5. A soft tissue density nodule arises from the skin surface of the anterior base of the neck on the left. Correlation with clinical findings is recommended. Head CT 12/29/22 06:38 IMPRESSION: 1. No evidence of acute skull fracture or intracranial hemorrhage. 2. Moderate similar bilateral frontal and parietal lobe and external capsule white matter hypodensity compatible with chronic small vessel ischemic changes. 3. Small bilateral mastoid effusions. 4. Mild chronic appearing right maxillary sinus disease. Humerus X-Ray 12/29/22 06:38 IMPRESSION: No visible fracture identified. Shoulder X-Ray 12/29/22 06:38 IMPRESSION: No acute right shoulder pathology identified. Discharge Plan Discharge Patient Disposition: Home Clinical Impression: Fall, Dislocation of AC joint, closed, History of fracture of humerus Condition: Stable Prescriptions: New mupirocin 2 % ointment 1 applic topical DAILY Qty: 15 0RF No Action gabapentin 300 mg capsule 900 mg PO BID ropinirole 0.25 mg tablet 0.25 mg PO BID@0900,2100 levothyroxine 50 mcg tablet 50 mcg PO DAILY@0800 tizanidine 4 mg Tablet 4 mg PO Q8H PRN (Reason: Muscle Spasm) sertraline 100 mg Tablet 150 mg PO DAILY magnesium hydroxide [Milk of Magnesia] 400 mg/5 mL Suspension 30 ml PO DAILY PRN (Reason: Constipation) bisacodyl 10 mg Suppository 10 mg [place] DAILY PRN (Reason: Constipation) Fleet Enema 19-7 gram/118 mL Enema 118 ml [place] DAILY PRN (Reason: Constipation) pseudoephedrine HCl [Sudogest] 30 mg Tablet 30 mg PO Q6H PRN (Reason: Congestion) polyethylene glycol 3350 [Miralax] 17 gram/dose Powder 4 g PO DAILY fluticasone propionate 50 mcg/actuation [place],Suspension 2 spray INTRANASAL DAILY Rx Instructions: administer into each nostril docusate sodium 100 mg Tablet 200 mg PO DAILY Eliquis DVT-PE Treat 30D Start 5 mg (74 tabs) tablets,dose pack See Rx Instructions .ROUTE .COMPLEX Qty: 74 3RF Rx Instructions: orally per package directions acetaminophen [Tylenol] 325 mg Tablet 650 mg PO Q4H PRN (Reason: Pain) ondansetron HCl [Zofran] 4 mg Tablet 4 mg PO Q4H PRN (Reason: Nausea) metformin 850 mg Tablet 850 mg PO BID ferrous sulfate 325 mg (65 mg iron) Tablet 325 mg PO DAILY aripiprazole 5 mg Tablet 2.5 mg PO DAILY melatonin 5 mg Tablet 5 mg PO BEDTIME cephalexin 500 mg capsule 500 mg PO Q6H 10 Days Qty: 40 0RF fentanyl 25 mcg/hr patch 72 hour 1 patch topical Q3D Biofreeze 0.2-3.5 % Gel 1 applic TOPICAL BID Rx Instructions: rub in gently and completely Discharge Orders: Discharge ED (Routine); Ordered 12/29/22 Ordered By: Chino Heller Referrals: Mar Cortez MD [Primary Care Provider] - Patient Instructions: Opioid Safety, Pain Management Activity Restrictions/Additional Instructions: You were seen today after a fall from bed. CT of your head and neck were negative there is no signs of bleeding or fracture. 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 Continue your current medications. Coding Level of Care Code ED Leasing Professional for [facility]
[2022-12-29] MEDS: tetanus-diphtheria tox (adult) 0.5 mL SDV IM (09:53)
[2022-12-29] MEDS: HYDROcodone-acetaminophen 5-325 mg Tablet 1 TAB PO (09:54)
[2022-12-29] MEDS: bacitracin ointment Pkt 1 EACH TOPICAL (09:58)
== END 2022-12-29 10:34 | disposition home or self-care (01) ==
PROVIDERS: Emergency Provider Family Medicine; PCP Family Medicine
DX: S43.101A Unspecified dislocation of right acromioclavicular joint, initial encounter (principal); W06.XXXA Fall from bed, initial encounter; Y92.129 Unspecified place in nursing home as the place of occurrence of the external cause; Z79.01 Long term (current) use of anticoagulants; E11.9 Type 2 diabetes mellitus without complications; I10 Essential (primary) hypertension; Z23 Encounter for immunization; S01.112A Laceration without foreign body of left eyelid and periocular area, initial encounter
CPT/HCPCS: 70450; 72125; 73030; 73060; 90471; 90714; 99285

== ENCOUNTER 2023-02-01 06:34 | Outpatient (CLI) | payer MEDICARE, MEDICAID, SELFPAY ==
[2023-02-01 06:51] LABS: Basophils # 0.1 10^3/uL (0.0-0.1); Basophils % 0.4 %; Eosinophils % 0.1 %; Hemoglobin 10.7 g/dL (11.5-15.3); Lymphocytes # 0.3 10^3/uL (0.8-4.8); Lymphocytes % 1.7 %; Mean Corpuscular HGB Conc 30.6 g/dL (30.0-36.0); Mean Corpuscular Hemoglobin 27.8 pg (28.0-34.0); Mean Corpuscular Volume 90.9 fl (81-99); Mean Platelet Volume 9.1 fL (7.4-10.4); Monocytes # 0.5 10^3/uL (0.2-0.9); Monocytes % 3.4 %; Neutrophils # 14.63 10^3/uL (1.8-7.7); Neutrophils % 93.5 %; Nucleated Red Blood Cells % 0 %; Platelet Count 290 10^3/cmm (130-400); Red Blood Count 3.85 10^6/uL (4.1-5.3); Red Cell Distribution Width 13.7 % (12.1-15.1); White Blood Count 15.7 10^3/uL (4.0-10.0)
== END 2023-02-01 06:35 | disposition home or self-care (01) ==
LOC: LAB 06:36
PROVIDERS: PCP Family Medicine; Visit Provider Family Medicine
DX: R50.9 Fever, unspecified (principal)
CPT/HCPCS: 85025